=== PATIENT | male | born 1950 | race Caucasian/White ===

== ENCOUNTER 2019-08-18 09:45 | Inpatient (IN) | payer MEDICARE, MEDICAID ==
[~2019-08-18] VITALS: Ht 180.3 cm; Wt 105.1 kg
[2019-08-18] MEDS ORDERED: LACTULOSE SYRUP 10GM/15ML (ENULOSE) 30ML UDC PO PRN (10:00)
[2019-08-18] MEDS ORDERED: ACETAMINOPHEN 500 MG TAB (TYLENOL) PO PRN (10:00)
[2019-08-18] MEDS ORDERED: diphenhydrAMINE 25 MG TAB (BENADRYL) PO PRN (10:00)
[2019-08-18] MEDS ORDERED: LOPERAMIDE 2 MG (IMODIUM) TABLET PO PRN (10:00)
[2019-08-18] MEDS ORDERED: guaiFENesin/CODEINE (ROBITUSSIN AC) 10ML UDC PO PRN (10:00)
[2019-08-18] MEDS ORDERED: ONDANSETRON 4 MG (ZOFRAN) ORAL DISSOLVE TAB PO PRN ×2 (10:00→17:15)
[2019-08-18] MEDS ORDERED: ALPRAZolam 0.25 MG (XANAX) TAB PO PRN (10:00)
[2019-08-18] MEDS ORDERED: DOCUSATE SODIUM 100 MG (COLACE) CAP PO PRN (10:00)
[2019-08-18] MEDS ORDERED: FLEET ENEMA ADULT 1 EA BTL PR PRN (10:00)
[2019-08-18] MEDS ORDERED: BISACODYL 10 MG SUPP (DULCOLAX) PR PRN (10:00)
[2019-08-18] MEDS ORDERED: ONDA4TAB11 PO (13:31)
[2019-08-18] MEDS ORDERED: HYDR-4227 PO (13:31)
[2019-08-18] MEDS ORDERED: FERR-84 PO (13:31)
[2019-08-18 13:41] VITALS: BP 137/87
[2019-08-18] MEDS ORDERED: POTA10TA6 PO (13:42)
[2019-08-18] MEDS ORDERED: ATOR80TA76 PO (13:42)
[2019-08-18] MEDS ORDERED: CHLO25TA22 PO (13:42)
[2019-08-18] MEDS ORDERED: FURO40TA4 PO (13:42)
[2019-08-18] MEDS ORDERED: DIGO250T PO (13:42)
[2019-08-18] MEDS ORDERED: SPIR25TA5 PO (13:42)
[2019-08-18] MEDS ORDERED: EMPA25TA PO (13:42)
[2019-08-18] MEDS ORDERED: NABU500T PO (13:42)
[2019-08-18] MEDS ORDERED: CITA40TA11 PO (13:42)
[2019-08-18] MEDS ORDERED: FINA5TAB6 PO (13:42)
[2019-08-18] MEDS ORDERED: GABA-490 PO (13:42)
[2019-08-18] MEDS ORDERED: DILT360C30 PO (13:42)
[2019-08-18] MEDS ORDERED: INSU100V6 SC (13:42)
[2019-08-18] MEDS ORDERED: CYAN-41 PO (13:42)
[2019-08-18] MEDS ORDERED: DOCU-143 PO (13:42)
[2019-08-18] MEDS ORDERED: INSU100I14 SC (13:42)
--- NOTE | 2019-08-18 14:25 | NUR ---
Jacinto Dejesus admitted to room 232-1, with an admitting diagnosis of , on 08/18/19 from [facility] via wheelchair, accompanied by Family.JACINTO DEJESUS introduced to surroundings, call light, bed controls, phone, TV, temperature control, lights, meal times, smoking policy, visitor policy, side rail policy, bathrooms and showers. Patient Rights given to patient in the handbook.JACINTO DEJESUS verbalizes understanding that [facility] is not responsible for the loss or damage to any personal effects or valuables that are kept in the patients possession during their hospitalization. The following Patient Care Plans were discussed with the patient and family: Discharge Planning, Total Hip Replacement, Potential for Injury. JACINTO DEJESUS verbalizes understanding of Interdisciplinary Patient Education.
--- NOTE | 2019-08-18 14:25 | Physical Therapy Evaluation ---
PT Evaluation-General Medical Diagnosis Admission Date Aug 18, 2019 at 12:45 Medical Diagnosis: OA R hip Onset Date: Aug 18, 2019 Therapy Diagnosis Therapy Diagnosis: abnormal gait Precautions Precautions/Isolations: Standard Precautions Weight Bear Status Right Lower Extremity: Right Weight Bearing/Tolerated Left Lower Extremity: Left Full Weight Bearing Referral Physician: Ashley Reason for Referral: Evaluation/Treatment Medical History Pertinent Medical History: Arthritis, CVA, DM, HTN, MA Additional Medical History anxiety, depression Current History Pt admitted to this facility post acute stay due to elective right THR. Anterior approach. Reviewed History: Yes Social History Home: Single Level Current Living Status: Alone Entry Into Home: Ramp Prior Prior Level of Function SCALE: Activities may be completed with or without assistive devices. 2-Rmnsabqdoy-qxaopvp completes the activity by him/herself with no assistance from a helper. 5-Set-up or Clean-up Assistance-helper sets up or cleans up; patient completes activity. [place] assists only prior to or following the activity. 4-Supervision or Touching Assistance-helper provides verbal cues and/or touching/steadying and/or contact guard assistance as patient completes activity. Assistance may be provided throughout the activity or intermittently. 3-Partial/Moderate Assistance-helper does LESS THAN HALF the effort. [place] lifts, holds or supports trunk or limbs, but provides less than half the effort. 2-Substantial/Maximal Assistance-helper does MORE THAN HALF the effort. [place] lifts or holds trunk or limbs and provides more than half the effort. 4-Vhkcrayzt-zrqlxl does ALL the effort. Patient does none of the effort to complete the activity. Or, the assistance of 2 or more helpers is required for the patient to complete the activity. If activity was not attempted, code reason: 7-Patient Refused. 9-Not Applicable-not attempted and the patient did not perform the activity before the current illness, exacerbation or injury. 10-Not Attempted due to Environmental Limitations-(lack of equipment, weather restraints, etc.). 88-Not Attempted due to Medical Conditions or Safety Concerns. Bed Mobility: 6 Transfers (B,C,W/C): 6 Gait: 0 (pt reports he primarily used his power chair; reports he walked approx 20 ft at most with a FWW.) Stairs: 9 Wheelchair Mobility: 6 (power chair) Indoor Mobility (Ambulation): Not [place] Stairs: Not [place] Prior Devices Use: Motorized wheelchair, Walker Pt lives alone and is able to manage from a power chair level; he reports he uses AD for transfer and bed mobility. Limited walking noted, reports he walks 20 ft at most. Reports he has primarily used a power chair for the last 4 years. PT Evaluation-Current Subjective Pt agreeable to PT evaluation. Pt/Family Goals His goal is to improve strength for gait and transfers. Objective Patient Orientation: Person, Place, Time, Situation ROM/Strength ROM Lower Extremities WFL Strength Lower Extremities Left LE strength is grossly 4/5; right LE strength is grossly 2+/5 Integumentary/Posture Integumentary refer to nursing notes for full assessment Bowel Incontinence: No Bladder Incontinence: Yes Posture rounded shoulders; difficulty coming to a full upright stance Neuromuscular (Tone, Coordination, Reflexes) intact and functional Sensory Vision: Functional Hearing: Functional Hand Dominance: Right Sensation Right Lower Extremit: Intact Sensation Left Lower Extremity: Intact Transfers Roll Left to Right (QC): 3 Sit to Lying (QC): 3 (assist with his legs) Lying to Sitting/Side of Bed(Q: 3 Sit to Stand (QC): 2 (max assist to come to a stand) Chair/Bth-bq-Ulbht Xfer(QC): 2 (max assist for SPT (dance style); with grab bars, is able to transfer with mod assist. ) Car Transfer (QC): 2 (max assist to complete. ) Gait Does the Patient Walk?: No and Walking Goal IS indicated Mode of Locomotion: Both Anticipated Mode of Locomotion: Both Walk 10 feet (QC): 88 Walk 50 ft with 2 Turns(QC): 88 Walk 150 ft (QC): 88 Walking 10ft/uneven surface-QC: 88 Gait Assistive Device: FWW Comments/Gait Description PT unable to effectively take steps this date; performed SPT only. Wheelchair Training Does the Pt Use a Wheelchair?: Yes Wheel 50 ft with 2 turns (QC): 6 Wheel 150 ft (QC): 6 Type of Wheelchair: Motorized Stairs 1 Step (curb) (QC): 88 4 Steps (QC): 88 12 Steps (QC): 88 Balance Sitting Static: Fair Sitting Dynamic: Fair Standing Static: Fair Standing Dynamic: Fair Picking up an Object (QC): 88 Treatment PT eval compelete Assessment/Needs Pt presents post elective right THR. He was primarily used a power chair and PLOF (for the past 4 years); he will benefit from functional transfer and bed mobility training as well as gait short distances to improve functional mobility and self care at home. Pt does have noted right LE weakness as well as balance deficits that impair functional mobiltiy and safety. He will benefit from skilled PT intervention to address deficits to allow him to return home. Rehab Potential: Guarded PT Short Term Goals Short Term Goals Time Frame: Sep 01, 2019 Roll Left & Right: 4 Sit to lyin Lying to sitting on side of be: 4 Sit to stand: 3 Walk 10 feet: 3 PT [facility] Goals [facility] Goals PT Regulatory Affairs Analyst Goals Time Frame: Sep 15, 2019 Roll Left & Right (QC): 6 Sit to Lying (QC): 6 Lying-Sitting on Side/Bed(QC): 6 Sit to Stand (QC): 6 Chair/Jyu-sk-Ukgnc Xfer(QC): 6 Toilet Transfer (QC): 6 Car Transfer (QC): 4 Does the Patient Walk: No and Walking Goal IS indicated Walk 10 feet (QC): 5 Walk 50ft with 2 Turns (QC): 9 Walk 150 ft (QC): 9 Walking 10ft on Uneven Surface: 9 1 Step (curb) (QC): 9 4 Steps (QC): 9 12 Steps (QC): 9 Picking up an Object (QC): 9 Does the Pt use WC or Scooter?: Yes Wheel 50 feet with 2 turns (QC: 6 Type: Motorized Wheel 150 feet: 6 Type: Motorized PT Plan Problem List Problem List: Activity Tolerance, Functional Strength, Safety, Balance, Gait, Transfer, Bed Mobility Treatment/Plan Treatment Plan: Continue Plan of Care Treatment Plan: Bed Mobility, Education, Functional Activity Yifan, Functional Strength, Group Therapy, Gait, Safety, Therapeutic Exercise, Transfers Treatment Duration: Sep 15, 2019 Frequency: At least 5 of 7 days/Wk (IRF) Estimated Hrs Per Day: 1.5 hours per day Patient and/or Family Agrees t: Yes Safety Risks/Education Patient Education: Transfer Techniques, Safety Issues Teaching Recipient: Patient Teaching Methods: Demonstration, Discussion Response to Teaching: Reinforcement Needed Discharge Recommendations Therapy Discharge Recommendati: Post Acute PT Time/GCodes Time In: 1230 Time Out: 1245 Total Billed Treatment Time: 15 Total Billed Treatment visit EVM 15 ELEAZAR NAGEL PT Aug 18, 2019 14:25 POS
--- NOTE | 2019-08-18 14:27 | Physical Therapy Daily Note ---
PT Daily Note-Current Subjective Pt. in bed with daughter and son in law and OT present. Pt. somewhat resistive to therapies and needs some encouragement as well as education and explanation of what ARU expectations are. Pt. spoke at length about his history and health issues. Pt. states he has used a scooter/power chair for the most part for the past 4 years. Pt. states he cannot LAQ right leg in sitting. Pt. requested a fan for sleeping and breathing as her had previously used a CPAP but has stopped using it since he lost 100lbs. Pt. comments several times that he has pain in R thigh and groin at 8/10 when he attempts movement and exercise Pain Numeric Pain Scale: 8 Location: Right Location Body Site: Thigh Pain Description: Stabbing Mental Status Patient Orientation: Normal For Age Transfers SCALE: Activities may be completed with or without assistive devices. 7-Ovzcqgrjxs-aasirkz completes the activity by him/herself with no assistance from a helper. 5-Set-up or Clean-up Assistance-helper sets up or cleans up; patient completes activity. [place] assists only prior to or following the activity. 4-Supervision or Touching Assistance-helper provides verbal cues and/or touching/steadying and/or contact guard assistance as patient completes activity. Assistance may be provided throughout the activity or intermittently. 3-Partial/Moderate Assistance-helper does LESS THAN HALF the effort. [place] lifts, holds or supports trunk or limbs, but provides less than half the effort. 2-Substantial/Maximal Assistance-helper does MORE THAN HALF the effort. [place] lifts or holds trunk or limbs and provides more than half the effort. 2-Lnjlrrdxc-aghnww does ALL the effort. Patient does none of the effort to complete the activity. Or, the assistance of 2 or more helpers is required for the patient to complete the activity. If activity was not attempted, code reason: 7-Patient Refused. 9-Not Applicable-not attempted and the patient did not perform the activity before the current illness, exacerbation or injury. 10-Not Attempted due to Environmental Limitations-(lack of equipment, weather restraints, etc.). 88-Not Attempted due to Medical Conditions or Safety Concerns. Roll Left & Right (QC): 3 Sit to Lying (QC): 3 Sit to Stand (QC): 4 Chair/Wyj-ve-Qlodx Xfer(QC): 3 pt. reached out for hand to be pulled up out of bed from supine. sit to stand pt. required min assist as well as detailed education to use UEs as pt. tries to pull on FWW and is confounded by it tipping and not being stable. Gait Training SPT bed to recliner, limited stance and gait as pts BP made considerable drop sup to sit and then sit to stand Exercises Supine Ex: Ankle pumps, Quad Set, Glut sets, Heel Slides (ssisted right), Straight leg raise (left indep), Hip abd/add (ssisted right) Supine Reps: 15 Seated Therapy Exercises: Ankle pumps, Sit to stand, Long arc quads Seated Reps: 20 (assisted right) Treatments pt. educated regarding ARU expectations and practices, pt. was co Rxd with OT secondary to BP issues and level of debility. Pt. was distributed a cushion for recliner and TRFd EOB to recliner and educated in use and positioning in recliner Assessment Current Status: Good Progress pt. c/o dizziness and following BPs were acquired sitting: BP 106/66, standing BP 84/49, communicated BP findings with nurse . PT Professional Sports Scout Goals Professional Sports Scout Goals PT Correction Goals Time Frame: Sep 15, 2019 Roll Left & Right (QC): 6 Sit to Lying (QC): 6 Lying-Sitting on Side/Bed(QC): 6 Sit to Stand (QC): 6 Chair/Xfk-xs-Yfwfj Xfer(QC): 6 Toilet Transfer (QC): 6 Car Transfer (QC): 4 Does the Patient Walk: No and Walking Goal IS indicated Walk 10 feet (QC): 5 Walk 50ft with 2 Turns (QC): 9 Walk 150 ft (QC): 9 Walking 10ft on Uneven Surface: 9 1 Step (curb) (QC): 9 4 Steps (QC): 9 12 Steps (QC): 9 Picking up an Object (QC): 9 Does the Pt use WC or Scooter?: Yes Wheel 50 feet with 2 turns (QC: 6 Type: Motorized Wheel 150 feet: 6 Type: Motorized PT Plan Treatment/Plan Treatment Plan: Continue Plan of Care Treatment Duration: Sep 15, 2019 Frequency: At least 5 of 7 days/Wk (IRF) Estimated Hrs Per Day: 1.5 hours per day Patient and/or Family Agrees t: Yes Safety Risks/Education Patient Education: Transfer Techniques, Correct Positioning, Disease Process, Safety Issues Teaching Recipient: Patient Teaching Methods: Demonstration, Discussion Response to Teaching: Verbalize Understanding, Return Demonstration, Reinforcement Needed Time/GCodes Time In: 1300 Time Out: 1415 Total Billed Treatment Time: 75 Total Billed Treatment 1,EX30m,FA45m CARLOS PERALTA LEARNING AND DEVELOPMENT ANALYST Aug 18, 2019 14:27 POS
--- NOTE | 2019-08-18 14:31 | Occupational Therapy Eval ---
OT Evaluation-General/PLF Medical Diagnosis Admission Date Aug 18, 2019 at 12:45 Medical Diagnosis: s/p R FILIPE Onset Date: Aug 16, 2019 Therapy Diagnosis Therapy Diagnosis: impaired ADLs and functional mobility Precautions Precautions/Isolations: Standard Precautions Comments Anterior hip precautions Referral Physician: Ashley Otero Reason: Activity Tolerance, Self Care, Evaluation/Treatment, Strengthening/ROM Medical History Pertinent Medical History: Arthritis, DM, HTN Additional Medical History Per chart review, pt has a history of anxiety, claustrophobia, back problems, hypercholesterolemia, heart attack, heart disease, stroke. Current History Pt has had pain in his hip over the last 4 years, causing him to be dependent on a power wheelchair for mobility. Pt has tried conservative tx without success, electing to undergo R FILIPE on Friday08/16/19. Pt was at [facility], transferring to [facility] inpatient rehab unit on 08/18/19. Reviewed History: Yes Social History Home: Single Level Current Living Status: Alone Entry Into Home: Ramp ADL-Prior Level of Function SCALE: Activities may be completed with or without assistive devices. 6-Vtsyifvufc-ehfozht completes the activity by him/herself with no assistance from a helper. 5-Set-up or Clean-up Assistance-helper sets up or cleans up; patient completes activity. [place] assists only prior to or following the activity. 4-Supervision or Touching Assistance-helper provides verbal cues and/or touching/steadying and/or contact guard assistance as patient completes activity. Assistance may be provided throughout the activity or intermittently. 3-Partial/Moderate Assistance-helper does LESS THAN HALF the effort. [place] lifts, holds or supports trunk or limbs, but provides less than half the effort. 2-Substantial/Maximal Assistance-helper does MORE THAN HALF the effort. [place] lifts or holds trunk or limbs and provides more than half the effort. 7-Lsnffqxpu-cclvar does ALL the effort. Patient does none of the effort to complete the activity. Or, the assistance of 2 or more helpers is required for the patient to complete the activity. If activity was not attempted, code reason: 7-Patient Refused. 9-Not Applicable-not attempted and the patient did not perform the activity before the current illness, exacerbation or injury. 10-Not Attempted due to Environmental Limitations-(lack of equipment, weather restraints, etc.). 88-Not Attempted due to Medical Conditions or Safety Concerns. ADL PLOF Comments Pt reports he was independent with dressing prior to surgery. He reports being able to complete all parts of bathing, except his feet. He has help a couple hours each day of the week from around 8-10AM, and a nurse x1 a week. He has assistance with the cleaning and the laundry. He reports the [place] with providing his meals. To get out of bed pt requires a cane to assist him in pushing his upper body up out of the bed. He has been incontinent for the past year. Self Care: Needed Some Help Functional Cognition: Independent DME/Equipment: Bath Chair, Tub/Shower DME/Equipment Comments Pt has used a power wheelchair for mobility for the past 4 years, he said he can use a walker to walk about 20-[address] Self: Yes (truck with lift attached for powerchair) OT Current Status Subjective Pt agreeable to OT evaluation and then OT/PT co-treat. Pt's daughter and son-in-law present at beginning of session, assisted in providing information about PLOF and home set up. Pain Numeric Pain Scale: 10-Worst Possible Pain Location: Right Location Body Site: Hip Mental Status/Objective Patient Orientation: Person, Place, Time, Situation Current Glasses/Contacts: Yes Hearing Aids: No Dentures/Partials: Yes Hand Dominance: Right Upper Extremity ROM WFL Upper Extremity Coordination WFL Upper Extremity Sensation WFL Upper Extremity Strength grossly 4/5 MMT ADL-Treatment Eating (QC): 6 Oral Hygiene (QC): 3 (Pt sat EOB during task, OT set up at tray table. Pt able to open denture tablet, placing tablet and dentures into container. OT then assisted with rinsing dentrues, pt scrubbed with toothpaste and tooth brush (required max encouragement), then OT rinsed dentures again. Pt then able to put dentures back into his mouth.) Shower/Bathe Self (QC): 3 (Pt able to wash BUE, chest, abdomen, periarea, and BLE thighs. He required assistance with BLE lower legs/feet, and buttocks during stand. ) Upper Body Dressing (QC): 5 (set up) Lower Body Dressing (QC): 1 (Pt required total assistance for doffing brief. Assistance for threading BLE into brief, pt then able to manage up over hips during stand at FWW.) On/Off Footwear (QC): 1 (Pt required total assist with task) Toileting Hygiene (QC): 2 (Pt required assistance with all parts of clothing management, pt able to complete toilet hygiene.) Toilet Transfer (QC): 2 (SPT with grab bars) Other Treatments Pt provided information about PLOF and home set up for OT evaluation. OT/PT cotreat secondary to pt's decline in overall function requiring the skill of 2 disciplines that a rehab department manager could not perform. OT focused on UE placement, ADLs, sequencing, and cueing while PT focused on overall gross movement and LE placement. Pt completed toileting, then transferred to his bed where his vitals were taken. Pt then sat EOB for sponge bath, dressing, and oral hygiene. During stand, pt reported he was light headed and dizzy, BP was taken. Pt's blood pressure was low and nursing notified. Pt then educated on ARU expectations and the purpose of OT. Pt's lunch arrived, he then ate. Pt then transferred from EOB to recliner. Post OT/PT co-treat, pt was sitting upright in recliner, call light in reach and all needs met. Education OT Patient Education: Correct positioning, Energy conservation, Modified ADL techniques, Progress toward Goal/Update tx plan, Purpose of tx/functional activ ities, Transfer techniques Teaching Recipient: Patient Teaching Methods: Discussion Response to Teaching: Verbalize Understanding OT Short Term Goals Short Term Goals Time Frame: Aug 27, 2019 OT Longterm Goals Longterm Goals Time Frame: Sep 03, 2019 Eating (QC): 6 Oral Hygiene (QC): 6 Toileting Hygiene (QC): 6 Shower/Bathe Self (QC): 6 Upper Body Dressing (QC): 6 Lower Body Dressing (QC): 6 On/Off Footwear (QC): 6 Additional Goals: 1-Demonstrate ADL Tasks, 2-Verbalize Understanding, 3- ImproveStrength/Yifan 1=Demonstrate adherence to instructed precautions during ADL tasks. 2=Patient will verbalize/demonstrate understanding of assistive devices/modifications for ADL. 3=Patient will improve strength/tolerance for activity to enable patient to perform ADL's. OT Education/Plan Problem List/Assessment Assessment: Decreased Activ Tolerance, Decreased UE Strength, Impaired Funct Balance, Impaired I ADL's, Impaired Self-Care Skills Discharge Recommendations Plan/Recommendations: Continue POC Equpiment Recommendations-D/C: Hip Kit Treatment Plan/Plan of Care Treatment,Training & Education: Yes Patient would benefit from OT for education, treatment and training to promote independence in ADL's, mobility, safety and/or upper extremity function for ADL's. Plan of Care: ADL Retraining, Caregiver Training, Functional Mobility, Group Exercise/Act as Ind, UE Funct Exercise/Act Treatment Duration: Sep 03, 2019 Frequency: At least 5 of 7 days/Wk (IRF) Estimated Hrs Per Day: 1.5 hours per day Agreement: Yes Rehab Potential: Good Time/GCodes Start Time: 12:45 Stop Time: 14:15 Total Time Billed (hr/min): 90 Billed Treatment Time [id number] OT evaluation [id number] OT/PT cotreat 1, EVM (15mins), ADL 5 INDIGO PERDOMO OT Aug 18, 2019 14:31 POS
--- NOTE | 2019-08-18 15:26 | ST Cognitive Linguistic Eval ---
Speech Evaluation-General Medical Diagnosis s/p R FILIPE Onset Date: Aug 16, 2019 Therapy Diagnosis Therapy Diagnosis: Cognitive-communication Referral Referring Physician: Dr. Ramirez Medical History Pertinent Medical History: Arthritis, DM, HTN Reviewed History: Yes Social History Current Living Status: Alone Speech PLF-Current Status Prior Level of Function Patient lived alone in his own home where he was independent for his daily needs. Subjective Patient was cooperative with the cognitive assessment. Language Eval: Auditory Comprehends Simple Yes/No Ques: Functional Indent/Objects Multiple Higgins: Functional Ident/Pics in Multiple Higgins: Functional Follows 1-Step Commands: Functional Follows Complex Directions: Functional Follows General Conversations: Functional Language Eval: Verbal Language Completes Spontaneous Greeting: Functional Produces Auto, Serial Info: Functional Imitates Simple Words/Phrases: Functional Word Finding: Functional Requests Basic Needs: Functional States Basic Personal Info: Functional Expresses Complex Ideas: Functional Objective Cognitive Domain Attention: WNL Memory: Mild Problem Solving: Functional Executive Functions: WNL Visuospatial Skills: WNL Composite Severity Rating: WNL Clock Drawing Severity Rating: WNL Objective Formal/Standardized Tests [facility] Status ([facility]) Results 28/30, within normal range of function Oral Motor/Speech Production Within Normal Limits Impression The patient is a 68 year old male who was admitted to the ARU s/p hip replacement. Patient was given the [facility] with a score of 28/30 obtained. The patient does not require skilled ST services at this time. Speech Patient Assess Expression of Ideas/Wants: Expression (4) Understanding Verbal Content: Understands (4) Brief Interview-Mental Status: Yes Repetition of Three Words: Three (3) Temporal Orientation: Year: Correct (3) Temporal Orientation: Month: Accurate within 5 days(2) Temporal Orientation: Day: Correct (1) Recall : Wear to say "Sock": Yes, no cue required (2) Recall : Color: Yes, no cue required (2) Recall : Bed: Yes, no cue required (2) Memory/Recall Ability: Current season, That he or she is in a hsp/hsp unit Speech-Plan Patient/Family Goals Patient/Family Goals: Patient plans on returning home post rehab. Treatment Plan Speech Therapy Treatment Plan: Discontinue ST Patient does not qualify for skilled ST services at this time. Treatment Duration: Aug 18, 2019 Frequency: 1 time per week Estimated Hrs Per Day: .25 hour per day Rehab Potential: Good Barriers to Learning: None identified Pt/Family Agrees to Plan: Yes Safety Risks/Education Teaching Recipient: Patient Teaching Methods: Discussion Response to Teaching: Verbalize Understanding Education Topics Provided: Safety within his room and communication of wants/needs Time Speech Therapy Time In: 14:45 Speech Therapy Time Out: 15:00 Total Billed Time: 15 Billed Treatment Time 1, SPSNDCOMP JOANA Castellanos Aug 18, 2019 15:26 POS
[2019-08-18] MEDS ORDERED: HYDR-700 PO (15:51)
[2019-08-18] MEDS ORDERED: METF-399 PO (15:51)
[2019-08-18] MEDS ORDERED: APIX5TAB PO (15:51)
[2019-08-18] MEDS ORDERED: GABA-488 PO (15:51)
[2019-08-18] MEDS ORDERED: METO100T12 PO (15:51)
--- NOTE | 2019-08-18 16:22 | NUR ---
PATIENT ARRIVED HERE IN REHAB WITH A DISCHARGE MEDICATION LIST FROM [facility]. THAT LIST DID NOT MATCH WHAT WAS SHOWING ON THE EXT MED HX SO I CALLED AND HAD [facility] FAX OVER A LIST OF MEDICATIONS THAT HAVE BEEN FILLED RECENTLY. 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 I CALLED [facility] IN [facility] AT [phone] AND THEY FAXED OVER A LIST OF MEDICATIONS. THAT LIST DOES NOT APPEAR TO MATCH WHAT THE PHARMACY FILLED EITHER AND HISTORICALLY I FIND HOME HEALTH DOES NOT UPDATE THEIR PAPERWORK AFTER THE PATIENT IS PUT ON SERVICE, THEY OFTEN JUST FILL THE PILL WALKING DRAGLINE OPERATOR USING THE BOTTLES THE PATIENT HAS IN THE HOME. I HAVE UPDATED THE MED REC WITH THE LIST FROM [facility]. [facility] FILLED: 08-16-19 JARDIANCE 25MG DAILY #30 07-09-19 ELIQUIS 5MG BID #60 ([facility] REPORTED 2.5MG DAILY) 07-09-19 CITALOPRAM 40MG DAILY #30 07-09-19 DIGOXIN 0.25MG DAILY #30 07-09-19 DILTIAZEM ER 360MG DAILY #30 07-09-19 FINASTERIDE 5MG DAILY #30 07-09-19 GABAPENTIN 300MG 1AM 1 NOON #60 07-09-19 GABAPENTIN 400MG HS #30 07-09-19 METOPROLOL TARTRATE 100MG BID #60 ([facility] REPORTED 50MG BID) 07-09-19 NABUMETONE 500MG BID #60 07-09-19 SPIRONOLACTONE 25MG 2 DAILY #60 06-30-19 FUROSEMIDE 40MG DAILY #60 06-30-19 METFORMIN 1000MG BID #120 ([facility] REPORTED 500MG BID) 06-09-19 ATORVASTATIN 80MG 1/2 TAB DAILY #30 ([facility] REPORTED 80MG HS) 06-08-19 POTASSIUM 10MEQ BID #120 06-02-19 CHLORTHALIDONE 25MG 1/2 TAB DAILY #30 06-02-19 COLACE 100MG BID #60 (STATES HE TAKES 1 DAILY) 03-02-19 NOVOLOG FLEXPEN 20 UNITS TID (STATES HE USES 18 UNITS TIDAC) ([facility] REPORTED 15 AC) 01-19-19 HYDROXYZINE HCL 25MG QID PRN #60 (ONLY USES PRN) ([facility] REPORTED TID) 10-29-18 LANTUS 75 UNITS BID (STATES HE USES 70 UNITS BID) ([facility] REPORTED 60 BID) OTC MED REPORTED BY [facility]: VITAMIN B12 1000MCG DAILY [facility] ALSO REPORTED TO CONTINUE FLEXERIL 10MG TID HOWEVER THIS HAS NOT BEEN FILLED RECENTLY. PATIENT STATES HE HAS TAKEN IT IN THE PAST BUT NOT RECENTLY HOWEVER WHEN THEY GAVE IT TO HIM AT [facility] HE FELT IT WORKED REALLY WELL TO HELP HIM EMPTY HIS BLADDER SO THAT HE DID NOT HAVE ACCIDENTS. I DID NOT INCLUDE IT ON THE MED REC AT THIS TIME HE HAS NOT BEEN TAKING IT AT HOME RECENTLY. THE FOLLOWING CHANGES WERE MADE WHEN THE PATIENT DISCHARGED FROM [facility]: START TAKING: IRON 325MG BID ZOFRAN ODT 4MG Q4H PRN CHANGE: NORCO 7.5-325MG PO (THERE WAS NO FREQUENCY ON THIS PAIN MEDICATION, THE PRINTED SCRIPT ALSO SIMPLY STATES TAKE BY MOUTH. THE PATIENT HAD TOLD ME IN MY FIRST INTERVIEW WITH HIM THAT HE FILLS HIS HYDROCODONE AT [facility] IN [place]. I CALLED THEM AND THEY HAVE NOT FILLED IT SINCE 07-01-18 #120 7.5-325MG QID PRN. THEY ALSO DID A CENTRAL SEARCH AND DO NOW SHOW ANYMORE RECENT FILL HISTORY, NOTHING WAS RETURNED IN [employer] BUT [place] IS NOT INCLUDED IN THAT SEARCH. WHEN I ASKED HIM ABOUT THIS AGAIN HE STATES HE HAS NOT FILLED IT IN A LONG TIME BUT HE DOES USE IT AND DOES NEED IT.) I HAVE LEFT THE FREQUENCY BLANK FOR THE DRJai TO DECIDE HOW MUCH HE SHOULD BE TAKING NOW. Addendum: 08/19/19 at 1432 by WILDER REN [facility] REMOVED THE NEW MEDICATIONS ZOFRAN AND IRON FROM THE MED REC AT THIS TIME. I ALSO REMOVED THE HYDROCODONE SINCE THE PATIENT HAD NOT FILLED IT SINCE 2017 PRIOR TO ADMISSION AND THE ORDER FROM [facility] DID NOT HAVE DIRECTIONS.
--- NOTE | 2019-08-18 17:08 | PM&R Post Admission Assessment ---
PM&R HP Date of Visit: Aug 18, 2019 Time of Visit: 17:10 History of Present Illness CC: Right hip replacement uncomplicated in need of intensive rehab due to living alone and required wheelchair bound status prior to surgery HPI: This is a 68yoWM clinic pt of [facility] and [facility] who presented to inpatient rehab after an uncomplicated right hip replacement. Apparently he had been mostly wheelchair bound due to the severe debility and does have an electric wheelchair. He had no complications during or post-op and I had been consulted and watching him over at [facility]. He reports no longer using CPAP since losing weight and he does have a history of AF with pacemaker and I did confer with who will see him in consultation. He has no issues of bladder but he was incontinence of feces the night right after surgery due to the spinal block. He has had some issues with low BP since being at [facility] but that is improving. His prior level of functioning was living alone and help transferring with a walker from the electric wheelchair so he will be in need of intensive rehab in order to sustain recovery and return home to live independently. 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) Alcohol Use: Past History Alcohol Beverage of Choice: Beer Recreational Drug Use: No Smoking Status: Former Smoker Type Used: Cigarettes Physical Abuse Screen: No Sexual Abuse: No Recent Foreign Travel: No Contact w/other who traveled: No Recent Hopitalizations: Yes Recent Infectious Disease Expo: No Immunizations Up To Date Pediatric: Yes Seasonal Allergies Seasonal Allergies: Yes Past Medical History Surgeries: Appendectomy, Gallbladder, Orthopedic Pacemaker Respiratory: COPD, Sleep Apnea Currently Using CPAP: Yes Currently Using BIPAP: No Cardiac: Atrial Fibrillation, Cardiomyopathy, Chronic Edema/Swelling, Coronary Artery Disease, High Cholesterol, Hypertension, Peripheral Vascular Neurological: Neuropathy Sexually Transmitted Disease: No HIV/AIDS: No Genitourinary: Benign Prostatic Hyperpl Gastrointestinal: Chronic Constipation Musculoskeletal: Arthritis Endocrine: Diabetes, Non-Insulin dep Are Your Blood Sugars Over 250: Yes Psychosocial: Depression History of Blood Disorders: No Adverse Reaction to Blood Swan: No Family History Alcoholism 19 FATHER 19 MOTHER G8 BROTHER Arthritis 19 FATHER 19 MOTHER G8 BROTHER Completed stroke 19 MOTHER Hypertension G8 BROTHER Tuberculosis Prior Level of Function Bed Mobility: 6 Transfers: 6 Gait: 0 (pt reports he primarily used his power chair; reports he walked approx 20 ft at most with a FWW.) Stairs: 9 Wheelchair Mobility: 6 (power chair) Indoor Mobility (Ambulation): Not Applicalbe Stairs: Not Applicalbe Prior Devices Use: Motorized wheelchair, Walker Self Care: Needed Some Help Functional Cognition: Independent Drive Self: Yes (truck with lift attached for powerchair) Current Level of Fuctioning Roll Left to Right: 3 Sit to Lyin Lying to Sitting/Side of Bed: 3 Sit to Stand: 4 Chair/Aew-et-Tvtqa Xfer: 3 Car Transfer: 2 (max assist to complete. ) Does the Patient Walk: No and Walking Goal IS indicated Mode of Locomotion: Both Anticipated Mode of Locomotion: Both Walk 10 feet: 88 Walk 50 ft with 2 Turns: 88 Walk 150 ft: 88 Walking 10ft on uneven surface: 88 Gait Assistive Device: FWW Does the Pt Use a Wheelchair: Yes Wheel 50 ft with 2 turns: 6 Wheel 150 ft: 6 Type of Wheelchair: Motorized 1 Step (curb): 88 4 Steps: 88 12 Steps: 88 Picking up an Object: 88 Eatin Oral Hygiene: 3 (Pt sat EOB during task, OT set up at tray table. Pt able to open denture tablet, placing tablet and dentures into container. OT then assisted with rinsing dentrues, pt scrubbed with toothpaste and tooth brush (required max encouragement), then OT rinsed dentures again. Pt then able to put dentures back into his mouth.) Shower/Bathe Self: 3 (Pt able to wash BUE, chest, abdomen, periarea, and BLE thighs. He required assistance with BLE lower legs/feet, and buttocks during stand. ) Upper Body Dressin (set up) Lower Body Dressin (Pt required total assistance for doffing brief. Assistance for threading BLE into brief, pt then able to manage up over hips during stand at FWW.) On/Off Footwear: 1 (Pt required total assist with task) Toileting Hygiene: 2 (Pt required assistance with all parts of clothing management, pt able to complete toilet hygiene.) Toilet Transfer: 2 (SPT with grab bars) PM&R Allergy/Meds/Data Review Allergies Coded Allergies: Iodine and Iodide Containing Produc (Verified Allergy, Unknown, 08/18/19) Penicillins (Verified Allergy, Unknown, 08/18/19) nifedipine (Verified Allergy, Unknown, 08/18/19) Home Medications Scheduled Apixaban (Eliquis), 5 MG PO BID, (Reported) Atorvastatin Calcium (Atorvastatin Calcium), 40 MG PO HS, (Reported) Chlorthalidone (Chlorthalidone), 12.5 MG PO DAILY, (Reported) Citalopram Hydrobromide (Citalopram HBr), 40 MG PO DAILY, (Reported) Cyanocobalamin (Vitamin B-12) (Vitamin B-12), 1,000 MCG PO DAILY, (Reported) Digoxin (Digoxin), 250 MCG PO DAILY, (Reported) Diltiazem HCl (Diltiazem ER), 360 MG PO DAILY, (Reported) Docusate Sodium (Colace), 100 MG PO DAILY, (Reported) Empagliflozin (Jardiance), 25 MG PO DAILY, (Reported) Ferrous Sulfate (Iron), 325 MG PO BID, (Reported) Finasteride (Finasteride), 5 MG PO DAILY, (Reported) Furosemide (Furosemide), 40 MG PO DAILY, (Reported) Gabapentin (Gabapentin), 400 MG PO HS, (Reported) Gabapentin (Gabapentin), 300 MG PO 0800,1200, (Reported) Insulin Aspart (Novolog Flexpen), 18 UNITS SC AC, (Reported) Insulin Glargine,Hum.rec.anlog (Lantus), 70 UNITS SC BID, (Reported) Metformin HCl (Metformin HCl), 1,000 MG PO BID, (Reported) Metoprolol Tartrate (Metoprolol Tartrate), 100 MG PO BID, (Reported) Nabumetone (Nabumetone), 500 MG PO BID, (Reported) Potassium Chloride (Klor-Con 10), 10 MEQ PO BID, (Reported) Spironolactone (Spironolactone), 50 MG PO DAILY, (Reported) Scheduled PRN Hydrocodone/Acetaminophen ([place] 7.5-325 Tablet), 1 TAB PO for PAIN-MODERATE (5- 7), (Reported) Hydroxyzine HCl (Hydroxyzine HCl), 25 MG PO QID PRN for ANXIETY, (Reported) Ondansetron (Ondansetron Odt), 4 MG PO Q4H PRN for NAUSEA/VOMITING-1ST LINE, (Reported) Current Medications Current Medications Reviewed Laboratory Data Laboratory Tests 08/18/19 15:29: Glucometer 106 Review of Systems Constitutional: see HPI, weakness EENTM: no symptoms reported Respiratory: no symptoms reported Cardiovascular: no symptoms reported Gastrointestinal: constipation Genitourinary: no symptoms reported Musculoskeletal: back pain, muscle pain Skin: no symptoms reported Psychiatric/Neurological: No Symptoms Reported All Other Systems Reviewed Negative Unless Noted: Yes Physical Exam Physical Exam Vital Signs Vital Signs - First Documented 08/18/19 13:41 Temp 37.0 Pulse 85 Resp 18 B/P (MAP) 137/87 Pulse Ox 97 O2 Delivery Room Air Capillary Refill : Height, Weight, BMI Height: '" Weight: lbs. oz. kg; 31.31 BMI Method: General Appearance: No Apparent Distress, WD/WN, Chronically ill, Obese Eyes: Bilateral Eye Normal Inspection, Bilateral Eye PERRL HEENT: PERRL/EOMI, Normal ENT Inspection, Pharynx Normal Neck: Full Range of Motion, Normal Inspection, Non Tender, Supple, Carotid Bruit Respiratory: Chest Non Tender, Normal Breath Sounds, No Accessory Muscle Use, No Respiratory Distress, Decreased Breath Sounds Cardiovascular: Regular Rate, Rhythm, No Gallop, No JVD, No Murmur, Normal Peripheral Pulses Gastrointestinal: Normal Bowel Sounds, No Organomegaly, No Pulsatile Mass, Non Tender, Soft Back: Normal Inspection, No CVA Tenderness, No Vertebral Tenderness Extremity: Normal Capillary Refill, Normal Inspection, Normal Range of Motion, Non Tender, No Calf Tenderness, Pedal Edema Neurologic/Psychiatric: Alert, Oriented x3, No Motor/Sensory Deficits (decreased in legs), Normal Mood/Affect, board layer II-XII Norm as Tested Skin: Normal Color, Warm/Dry Lymphatic: No Adenopathy PM&R Medical Assessment & Plan REHAB/MEDICAL ASSESSMENT AND PLAN: REHAB IMPAIRMENT GROUP: Debility ETIOLOGIC DIAGNOSIS: Debility The comorbidities that impact the patients function and/or functional outcome by: AF, OAC, Arthritis, Debility REHAB PLAN: The patient is being admitted to our comprehensive inpatient rehabilitation facility and can tolerate the intensity of service consisting of at least: 180 minutes of therapy a day, 5 out of 7 days a week Rehab treatment will consist of: PT and OT will focus on increasing strength in order to dc home alone The patient/family has a good understanding of our discharge process and will benefit from an interdisciplinary inpatient rehabilitation program. The patient has potential to make improvement and is in need of at least two of the following multidisciplinary therapies including but not limited to physical, occupational, speech, and prosthetics and orthotics. Additionally the patient will need services from respiratory, nutritional services, wound care, psychology, etc. (Customize this to each patient). Given the patients complex condition and risk of further medical complications, rehabilitation services cannot be safely or effectively provided at a lower level of care such as a intermediate facility. BARRIERS TO DISCHARGE: Home ESTIMATED LOS: 7 days DISPOSITION: Home RELEVANT CHANGES SINCE PREADMISSION SCREENING: I have compared the patients medical and functional status at the time of the preadmission screening and there are: no changes PROGNOSIS: Good REHABILITATION GOALS: 1. PT/OT will help regain enough function to safely return home All the above goals were reviewed with the patient and he/she is in agreement. By signing this document, I acknowledge that I have personally performed a full physical examination on this patient within 24 hours of admission to this inpatient rehabilitation facility and have determined the patient to be able to tolerate the above course of treatment at an intensive level for a reasonable period of time. I will be completing a detailed individualized Plan of Care for this patient by day #4 of the patients stay based upon the Preadmission Screen, the Post-Admission Evaluation, and the therapy evaluations. Admission Dx/Comorbidities: (1) Debility ICD Codes: R53.81 - Other malaise (2) CAD (coronary artery disease) ICD Codes: I25.10 - Atherosclerotic heart disease of [place] coronary artery without angina pectoris (3) Diabetes mellitus ICD Codes: E11.9 - Type 2 diabetes mellitus without complications (4) Pacemaker ICD Codes: Z95.0 - Presence of cardiac pacemaker (5) Atrial fibrillation ICD Codes: I48.91 - Unspecified atrial fibrillation (6) IBS (irritable bowel syndrome) ICD Codes: K58.9 - Irritable bowel syndrome without diarrhea (7) KRAIG (obstructive sleep apnea) ICD Codes: G47.33 - Obstructive sleep apnea (adult) (pediatric) (8) Hypertension ICD Codes: I10 - Essential (primary) hypertension (9) Hyperlipemia ICD Codes: E78.5 - Hyperlipidemia, unspecified (10) Depression ICD Codes: F32.9 - Major depressive disorder, single episode, unspecified (11) BPH (benign prostatic hyperplasia) ICD Codes: N40.0 - Benign prostatic hyperplasia without lower urinary tract symptoms (12) Status post right hip replacement ICD Codes: Z96.641 - Presence of right artificial hip joint TOLU PENA DO Aug 18, 2019 17:08 POS
[2019-08-18] MEDS ORDERED: NON-FORMULARY MEDICATION 1 EA EA (Hydroxyzine HCl 25 MG) PO PRN (17:15)
[2019-08-18] MEDS ORDERED: hydrOXYzine (VISTARIL/ATARAX) 25 MG capsule/tablet PO PRN (17:30)
[2019-08-18 18:00] VITALS: BP 121/66
[2019-08-18] MEDS: FERROUS SULF 325 MG (IRON) TAB PO SCH (18:20)
[2019-08-18] MEDS: HYDROcodone/APAP 7.5 MG/325 MG (LORTAB, LORCET PLUS) TABLET PO PRN (18:21)
[2019-08-18] MEDS: metFORMIN 500 MG (GLUCOPHAGE) TAB PO SCH (18:21)
[2019-08-18] MEDS: KCL 10 MEQ TAB (MICRO K) PO SCH (18:21)
[2019-08-18 21:00] VITALS: BP 113/71
[2019-08-18] MEDS ORDERED: NON-FORMULARY MEDICATION 1 EA EA (Metformin HCl 1,000 MG) PO SCH (21:00)
[2019-08-18] MEDS ORDERED: INSULIN GLARGINE HUM REC ANLOG 70 UNIT SC SCH (21:00)
[2019-08-18] MEDS ORDERED: NON-FORMULARY MEDICATION 1 EA EA (Metoprolol Tartrate 100 MG) PO SCH (21:00)
[2019-08-18] MEDS ORDERED: DOCUSATE SODIUM 100 MG (COLACE) CAP PO SCH (21:00)
[2019-08-18] MEDS: SENNA W/DOCUSATE (SENOKOT S) TABLET PO SCH (21:11)
[2019-08-18] MEDS: GABAPENTIN 400 MG (NEURONTIN) CAP PO SCH (21:11)
[2019-08-18] MEDS: meTOprolol TARTRATE 50 MG (LOPRESSOR) TAB PO SCH (21:11)
[2019-08-18] MEDS: APIXABAN 5 MG (ELIQUIS) TABLET PO SCH (21:12)
[2019-08-18] MEDS: POLYETHYLENE GLYCOL 17 GM (MIRALAX) PACK PO SCH (22:04)
[2019-08-19] MEDS: HYDROcodone/APAP 7.5 MG/325 MG (LORTAB, LORCET PLUS) TABLET PO PRN ×4 (02:02→20:06)
[2019-08-19] MEDS: FERROUS SULF 325 MG (IRON) TAB PO SCH ×2 (05:56→17:01)
[2019-08-19] MEDS ORDERED: NON-FORMULARY MEDICATION 1 EA EA (Insulin Aspart (Novolog Flexpen) 18 UNITS) SC SCH (06:00)
[2019-08-19 06:17] VITALS: BP 126/74
[2019-08-19] MEDS: KCL 10 MEQ TAB (MICRO K) PO SCH ×2 (06:36→17:01)
[2019-08-19] MEDS: metFORMIN 500 MG (GLUCOPHAGE) TAB PO SCH ×2 (06:36→17:01)
[2019-08-19] MEDS: inSUlin ASPART (NovoLOG) 1 UNIT/0.01 ML (CHARGE PER UNIT) SC SCH ×4 (06:36→21:14)
[2019-08-19] MEDS: CHLORTHALIDONE 25 MG (HYGROTON) TABLET PO SCH (06:39)
[2019-08-19 06:55] LABS: BASOPHILS % (AUTO) 0 % (0-10); EOSINOPHILS % (AUTO) 1 % (0-10); HEMATOCRIT 30 % (40-54); HEMOGLOBIN 10.2 G/DL (13.3-17.7); LYMPHOCYTES # (AUTO) 1.2 X 10^3 (1.0-4.0); LYMPHOCYTES % (AUTO) 14 % (12-44); MEAN CORPUSCULAR HEMOGLOBIN 33 PG (25-34); MEAN CORPUSCULAR HGB CONC 35 G/DL (32-36); MEAN CORPUSCULAR VOLUME 94 FL (80-99); MEAN PLATELET VOLUME 8.9 FL (7.4-10.4); MONOCYTES # (AUTO) 1.1 X 10^3 (0.0-1.0); MONOCYTES % (AUTO) 13 % (0-12); NEUTROPHILS # (AUTO) 6.1 X 10^3 (1.8-7.8); NEUTROPHILS % (AUTO) 72 % (42-75); PLATELET COUNT 227 10^3/uL (130-400); RED CELL DISTRIBUTION WIDTH 12.9 % (10.0-14.5); WHITE BLOOD COUNT 8.4 10^3/uL (4.3-11.0)
[2019-08-19 07:16] LABS: ALANINE AMINOTRANSFERASE 41 U/L (0-55); ALBUMIN 3.2 GM/DL (3.2-4.5); ALKALINE PHOSPHATASE 101 U/L (40-136); BILIRUBIN,TOTAL 0.5 MG/DL (0.1-1.0); BUN/CREATININE RATIO 20; CARBON DIOXIDE 23 MMOL/L (21-32); CHLORIDE 100 MMOL/L (98-107); CREATININE SERUM 0.74 MG/DL (0.60-1.30); GFR ESTIMATED > 60; GLUCOSE 76 MG/DL (70-105); POTASSIUM 3.1 MMOL/L (3.6-5.0); SODIUM 135 MMOL/L (135-145); TOTAL PROTEIN 5.6 GM/DL (6.4-8.2)
--- NOTE | 2019-08-19 08:43 | Occupational Ther Daily Note ---
OT Current Status-Daily Note Subjective Pt seen initially at 8:13 but said that he was too exhausted and in pain to work. He had pain meds about an hour ago and they hadn't fully taken effect yet. OT was able to delay tx for 1/2 hour. Appearance Sleepy, reporting unable to participate initially. Mental Status/Objective Patient Orientation: Person, Place, Time, Situation Attachments: Saline Lock ADL-Treatment Pt seen in room, up in bed, reluctantly agreeable to OT. Pt able to use urinal in bed and reported that he had been up several times to walk to the bathroom with nursing, FWW (about 20 feet). Used BSC over toilet. Pt prepped for sponge bath and dressing but he became increasingly diaphoretic and flushed. He reported that he felt unsafe to stand so ADLs were going to be done in bed. Reviewed anterior hip precautions with pt. Nursing contacted to take vitals. BP, HR, O2 OK but blood sugar below 50. Pt continued to feel bad and was unable to continue OT while recovering. Pt left in be in nursing care. Therapy Code Descriptions/Definitions Functional Hector Measure: 0=Not Assessed/NA 4=Minimal Assistance 1=Total Assistance 5=Supervision or Setup 2=Maximal Assistance 6=Modified Hector 3=Moderate Assistance 7=Complete IndependenceSCALE: Activities may be completed with or without assistive devices. 5-Mtzeykcckp-gpsfeuy completes the activity by him/herself with no assistance from a helper. 5-Set-up or Clean-up Assistance-helper sets up or cleans up; patient completes activity. [place] assists only prior to or following the activity. 4-Supervision or Touching Assistance-helper provides verbal cues and/or touching/steadying and/or contact guard assistance as patient completes activity. Assistance may be provided throughout the activity or intermittently. 3-Partial/Moderate Assistance-helper does LESS THAN HALF the effort. [place] lifts, holds or supports trunk or limbs, but provides less than half the effort. 2-Substantial/Maximal Assistance-helper does MORE THAN HALF the effort. [place] lifts or holds trunk or limbs and provides more than half the effort. 0-Wwipvsdyo-pggges does ALL the effort. Patient does none of the effort to complete the activity. Or, the assistance of 2 or more helpers is required for the patient to complete the activity. If activity was not attempted, code reason: 7-Patient Refused. 9-Not Applicable-not attempted and the patient did not perform the activity before the current illness, exacerbation or injury. 10-Not Attempted due to Environmental Limitations-(lack of equipment, weather restraints, etc.). 88-Not Attempted due to Medical Conditions or Safety Concerns. Education OT Patient Education: Purpose of tx/functional activities, Reviewed precautions, Rehab process Teaching Recipient: Patient Teaching Methods: Discussion Response to Teaching: Verbalize Understanding OT Short Term Goals Short Term Goals Time Frame: Aug 27, 2019 OT Half-Way Goals Half-Way Goals Time Frame: Sep 03, 2019 Eating (QC): 6 Oral Hygiene (QC): 6 Toileting Hygiene (QC): 6 Shower/Bathe Self (QC): 6 Upper Body Dressing (QC): 6 Lower Body Dressing (QC): 6 On/Off Footwear (QC): 6 Additional Goals: 1-Demonstrate ADL Tasks, 2-Verbalize Understanding, 3-ImproveStrength/Yifan 1=Demonstrate adherence to instructed precautions during ADL tasks. 2=Patient will verbalize/demonstrate understanding of assistive devices/modifications for ADL. 3=Patient will improve strength/tolerance for activity to enable patient to perf orm ADL's. OT Education/Plan Discharge Recommendations Plan/Recommendations: Continue POC Treatment Plan/Plan of Care Patient would benefit from OT for education, treatment and training to promote independence in ADL's, mobility, safety and/or upper extremity function for ADL's. Plan of Care: ADL Retraining, Caregiver Training, Functional Mobility, Group Exercise/Act as Ind, UE Funct Exercise/Act Treatment Duration: Sep 03, 2019 Frequency: At least 5 of 7 days/Wk (IRF) Estimated Hrs Per Day: 1.5 hours per day Agreement: Yes Rehab Potential: Good Time/GCodes Start Time: 08:45 Stop Time: 09:10 Total Time Billed (hr/min): 25 Billed Treatment Time visit, 25 minutes ADL MARY ELLEN SURESH OT Aug 19, 2019 08:43 POS
[2019-08-19] MEDS ORDERED: NON-FORMULARY MEDICATION 1 EA EA (Citalopram Hydrobromide (Citalopram HBr) 40 MG) PO SCH (09:00)
[2019-08-19] MEDS ORDERED: CHLORTHALIDONE 12.5 MG PO SCH (09:00)
[2019-08-19] MEDS ORDERED: NON-FORMULARY MEDICATION 1 EA EA (Empagliflozin (Jardiance) 25 MG) PO SCH (09:00)
[2019-08-19] MEDS ORDERED: NON-FORMULARY MEDICATION 1 EA EA (Diltiazem HCl (Diltiazem ER) 360 MG) PO SCH (09:00)
--- NOTE | 2019-08-19 09:39 | PM&R Progress Note ---
Subjective HPI/CC On Admission Date Seen by Provider: Aug 19, 2019 Time Seen by Provider: 08:30 Subjective/Events-last exam Pt had a pretty good day. Dr. Oro will be consulted. Potassium 3.1, initiated 3 mEQ of Potassium. Bowel movement X5 last night. RT is working with Pt for a CPAP mask but he is noncompliant. Overall feels pretty good otherwise. Checked meds and labs Reviewed therapy notes Conferred with service shop foreman of Systems General: Fatigue Pulmonary: Dyspnea Musculoskeletal: back pain, hand pain, leg pain Objective Exam Vital Signs Vital Signs Date Time Temp Pulse Resp B/P (MAP) Pulse Ox O2 Delivery O2 Flow Rate FiO2 08/21/19 06:13 36.2 60 16 105/64 (78) 99 Nasal Cannula 3.00 Capillary Refill : General Appearance: No Apparent Distress, WD/WN, Chronically ill, Obese HEENT: PERRL/EOMI, Normal ENT Inspection, Pharynx Normal Neck: Full Range of Motion, Normal Inspection, Non Tender, Supple, Carotid Bruit Respiratory: Chest Non Tender, Normal Breath Sounds, No Accessory Muscle Use, No Respiratory Distress, Decreased Breath Sounds Cardiovascular: Regular Rate, Rhythm, No Gallop, No JVD, No Murmur, Normal Peripheral Pulses Gastrointestinal: Normal Bowel Sounds, No Organomegaly, No Pulsatile Mass, Non Tender, Soft Back: Normal Inspection, No CVA Tenderness, No Vertebral Tenderness Extremity: Normal Capillary Refill, Normal Inspection, Normal Range of Motion, Non Tender, No Calf Tenderness, Pedal Edema Neurologic/Psychiatric: Alert, Oriented x3, No Motor/Sensory Deficits (decreased in legs), Normal Mood/Affect, bridal sales consultant II-XII Norm as Tested Skin: Normal Color, Warm/Dry Lymphatic: No Adenopathy Results/Procedures Lab Laboratory Tests 08/21/19 06:08 Patient resulted labs reviewed. FIM Transfers Therapy Code Descriptions/Definitions Functional [place] Measure: 0=Not Assessed/NA 4=Minimal Assistance 1=Total Assistance 5=Supervision or Setup 2=Maximal Assistance 6=Modified [place] 3=Moderate Assistance 7=Complete IndependenceSCALE: Activities may be completed with or without assistive devices. 3-Zbceksdfwh-qtqoysu completes the activity by him/herself with no assistance from a helper. 5-Set-up or Clean-up Assistance-helper sets up or cleans up; patient completes activity. [place] assists only prior to or following the activity. 4-Supervision or Touching Assistance-helper provides verbal cues and/or touching/steadying and/or contact guard assistance as patient completes activity. Assistance may be provided throughout the activity or intermittently. 3-Partial/Moderate Assistance-helper does LESS THAN HALF the effort. [place] lifts, holds or supports trunk or limbs, but provides less than half the effort. 2-Substantial/Maximal Assistance-helper does MORE THAN HALF the effort. [place] lifts or holds trunk or limbs and provides more than half the effort. 0-Irchwdesx-ebpald does ALL the effort. Patient does none of the effort to complete the activity. Or, the assistance of 2 or more helpers is required for the patient to complete the activity. If activity was not attempted, code reason: 7-Patient Refused. 9-Not Applicable-not attempted and the patient did not perform the activity before the current illness, exacerbation or injury. 10-Not Attempted due to Environmental Limitations-(lack of equipment, weather restraints, etc.). 88-Not Attempted due to Medical Conditions or Safety Concerns. Roll Left to Right (QC): 3 Sit to Lying (QC): 3 Sit to Stand (QC): 4 Chair/Rlv-ll-Fqrtk Xfer(QC): 3 Car Transfer (QC): 2 (max assist to complete. ) Gait Training Does the Patient Walk?: No and Walking Goal IS indicated Walk 10 feet (QC): 88 Walk 50 ft with 2 Turns(QC): 88 Walk 150 ft (QC): 88 Walking 10ft/uneven surface-QC: 88 Gait Assistive Device: FWW Wheelchair Training Does the Pt Use a Wheelchair?: Yes Wheel 50 ft with 2 turns (QC): 6 Wheel 150 ft (QC): 6 Type of Wheelchair: Motorized Stair Training 1 Step (curb) (QC): 88 4 Steps (QC): 88 12 Steps (QC): 88 Balance Picking up an Object (QC): 88 ADL-Treatment Eating (QC): 6 Oral Hygiene (QC): 3 (Pt sat EOB during task, OT set up at tray table. Pt able to open denture tablet, placing tablet and dentures into container. OT then assisted with rinsing dentrues, pt scrubbed with toothpaste and tooth brush (required max encouragement), then OT rinsed dentures again. Pt then able to put dentures back into his mouth.) Shower/Bathe Self (QC): 3 (Pt able to wash BUE, chest, abdomen, periarea, and BLE thighs. He required assistance with BLE lower legs/feet, and buttocks during stand. ) Upper Body Dressing (QC): 5 (set up) Lower Body Dressing (QC): 1 (Pt required total assistance for doffing brief. Assistance for threading BLE into brief, pt then able to manage up over hips during stand at FWW.) On/Off Footwear (QC): 1 (Pt required total assist with task) Toileting Hygiene (QC): 2 (Pt required assistance with all parts of clothing management, pt able to complete toilet hygiene.) Toilet Transfer (QC): 2 (SPT with grab bars) Assessment/Plan Assessment and Plan Assess & Plan/Chief Complaint Assessment: Right hip replacement Chronic pain h/o ETOHism CAD OAC Hypotension Hypokalemia Plan: Monitor closely Potassium supplement IRF protocol (1) Debility (2) CAD (coronary artery disease) (3) Diabetes mellitus (4) Pacemaker (5) Atrial fibrillation (6) IBS (irritable bowel syndrome) (7) KRAIG (obstructive sleep apnea) (8) Hypertension (9) Hyperlipemia (10) Depression (11) BPH (benign prostatic hyperplasia) (12) Status post right hip replacement TOLU PENA DO Aug 19, 2019 09:39 POS
[2019-08-19] MEDS: DILTIAZEM 180 MG (CARDIZEM CD) CAP PO SCH (09:45)
[2019-08-19] MEDS: CYANOCOBALAMIN 1,000 MCG (VITAMIN B-12) TABLET PO SCH (09:45)
[2019-08-19] MEDS: meTOprolol TARTRATE 50 MG (LOPRESSOR) TAB PO SCH ×2 (09:46→20:06)
[2019-08-19] MEDS: FUROSEMIDE 40 MG (LASIX) TAB PO SCH (09:46)
[2019-08-19] MEDS: SPIRONOLACTONE 25 MG (ALDACTONE) TAB PO SCH (09:54)
[2019-08-19] MEDS: APIXABAN 5 MG (ELIQUIS) TABLET PO SCH ×2 (09:54→20:06)
[2019-08-19] MEDS: FINASTERIDE (PROSCAR) 5 MG TAB PO SCH (09:54)
[2019-08-19] MEDS: DIGOXIN 0.25 MG (LANOXIN) TAB PO SCH (09:55)
[2019-08-19] MEDS: IBUPROFEN 600 MG (MOTRIN) TAB PO SCH ×3 (09:55→20:07)
[2019-08-19] MEDS: GABAPENTIN 300 MG (NEURONTIN) CAP PO SCH ×2 (09:55→13:58)
[2019-08-19] MEDS: POLYETHYLENE GLYCOL 17 GM (MIRALAX) PACK PO SCH ×2 (09:59→20:04)
[2019-08-19] MEDS: DOCUSATE SODIUM 100 MG (COLACE) CAP PO SCH (09:59)
[2019-08-19] MEDS: SENNA W/DOCUSATE (SENOKOT S) TABLET PO SCH ×2 (10:00→20:07)
--- NOTE | 2019-08-19 10:28 | Physical Therapy Progress Note ---
Therapy Progress Note IT SOLUTIONS ARCHITECT arrives to start Rx and Nurse present finishing morning meds. Nurse informed IT SOLUTIONS ARCHITECT that pt's Blood Sugar was low this morning (in 40's) and is now 77 but pt continues to be lethargic. Pt is falling asleep talking to IT SOLUTIONS ARCHITECT and while attempting EX. IT SOLUTIONS ARCHITECT will return in pm and try again. 1, FA (20m) & EX (10m) Time: [id number] LYNN TORREZ PTA Aug 19, 2019 10:28 POS
--- NOTE | 2019-08-19 10:34 | Consultation-Cardiology ---
HPI-Cardiology Cardiology Consultation: Date of Consultation 08/19/19 Time Seen by a Provider: 10:20 Date of Admission 08-18-19 Attending Physician Debby Ramirez DO Admitting Physician Geetha,Local Physician Consulting Physician Lisa Oro MD HPI: Mr. Martinez is a 68 year old male who has been admitted to 223 post right THR at [facility] in [place], [place]. His primary air shovel operator is Dr. Almanza at [facility] in [place], [place]. He is very drowsy at the time of exam d/t receiving pain medication. He denies any c/o CP, palpitations or dyspnea. Review of Systems-Cardiology Review of Systems Other comments D/T fatigue a very limited ROS was able to be obtained. 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 Family Medical History Family Medical History: Documented h/o mother having a CVA. Family History: Alcoholism 19 FATHER 19 MOTHER G8 BROTHER Arthritis 19 FATHER 19 MOTHER G8 BROTHER Completed stroke 19 MOTHER Hypertension G8 BROTHER Tuberculosis Allergies and Home Medications Allergies Coded Allergies: Iodine and Iodide Containing Produc (Verified Allergy, Unknown, 08/18/19) Penicillins (Verified Allergy, Unknown, 08/18/19) nifedipine (Verified Allergy, Unknown, 08/18/19) Home Medications Apixaban 5 Mg Tablet, 5 MG PO BID, (Reported) Atorvastatin Calcium 80 Mg Tablet, 40 MG PO HS, (Reported) TAKES 1/2 (80MG) TABLET Chlorthalidone 25 Mg Tablet, 12.5 MG PO DAILY, (Reported) TAKES 1/2 (25MG) TABLET Citalopram Hydrobromide 40 Mg Tablet, 40 MG PO DAILY, (Reported) Cyanocobalamin (Vitamin B-12) 1,000 Mcg Tablet, 1,000 MCG PO DAILY, (Reported) Digoxin 250 Mcg Tablet, 250 MCG PO DAILY, (Reported) Diltiazem HCl 360 Mg Capsule.er, 360 MG PO DAILY, (Reported) Docusate Sodium 100 Mg Capsule, 100 MG PO DAILY, (Reported) LAST FILLED #60 06-02-19 Empagliflozin 25 Mg Tablet, 25 MG PO DAILY, (Reported) Finasteride 5 Mg Tablet, 5 MG PO DAILY, (Reported) Furosemide 40 Mg Tablet, 40 MG PO DAILY, (Reported) Gabapentin 400 Mg Capsule, 400 MG PO HS, (Reported) Gabapentin 300 Mg Capsule, 300 MG PO 0800,1200, (Reported) Hydroxyzine HCl 25 Mg Tablet, 25 MG PO QID PRN for ANXIETY, (Reported) Insulin Aspart 300 Units/3 Ml Solution, 18 UNITS SC AC, (Reported) Insulin Glargine,Hum.rec.anlog 100 Unit/1 Ml Vial, 70 UNITS SC BID, (Reported) LAST FILLED #50 10-29-18 Metformin HCl 1,000 Mg Tablet, 1,000 MG PO BID, (Reported) Metoprolol Tartrate 100 Mg Tablet, 100 MG PO BID, (Reported) Nabumetone 500 Mg Tablet, 500 MG PO BID, (Reported) Potassium Chloride 10 Meq Tablet.er, 10 MEQ PO BID, (Reported) Spironolactone 25 Mg Tablet, 50 MG PO DAILY, (Reported) TAKES 2 (25MG) TABLETS Patient Home Medication List Home Medication List Reviewed: Yes Physical Exam-Cardiology Physical Exam Vital Signs/I&O 08/24/19 06:00 Temp 35.6 Pulse 65 Resp 18 B/P (MAP) 96/65 (75) Pulse Ox 98 O2 Delivery Room Air 08/24/19 00:00 Intake Total 2025 ml Output Total 1520 ml Balance 505 ml Capillary Refill : Constitutional: No apparent distress; other (drowsy, awakens easily, drifts back to sleep) HEENT: hearing is well preserved, oral hygience is good Neck: No carotid bruit Respiratory: No accessory muscle use, No respiratory distress; chest expansion is symmetric, chest is bilaterally symmetric, lungs clear to auscultation Cardiovascular: regular rate-rhythm; No JVD; S1 and S2 Gastrointestinal: No tender; soft Extremities: other (mod RLE swelling) Neurologic/Psychiatric: other (moves extremities) Skin: No rash on exposed areas, No ulcerations on exposed areas Data Review Labs Laboratory Tests 08/23/19 17:01: Glucometer 140H 08/23/19 20:44: Glucometer 158H 08/24/19 05:58: Glucometer 164H 08/24/19 06:28: Sodium Level 134L, Potassium Level 3.7, Chloride Level 96L, Carbon Dioxide Level 26, Anion Gap 12, Blood Urea Nitrogen 12, Creatinine 0.91, Estimat Glomerular Filtration Rate > 60, BUN/Creatinine Ratio 13, Glucose Level 139H, Calcium Level 9.2, Corrected Calcium 9.8, Magnesium Level 1.7, Total Bilirubin 1.8H, Aspartate Amino Transf (AST/SGOT) 46H, Alanine Aminotransferase (ALT/SGPT) 55, Alkaline Phosphatase 245H, Total Protein 6.2L, Albumin 3.2, Digoxin Level 1.07 08/24/19 10:52: Glucometer 146H A/P-Cardiology Assessment/Admission Diagnosis S/P R THR at [facility] in [place], [place] by Dr. Olivier Reported h/o CAD with NM in January 2019 - details unavailable H/O PPM implant in January 2019 - reasons unknown H/O A-fib OAC with Eliquis Chronic anemia DM HTN HLD Obesity Discussion and Recomendations Continue home medications, including ASA and OAC Request records for Jo and Dr. Almanza Replace electrolytes Monitor lab Clinical Quality Measures DVT/VTE Risk/Contraindication: Risk Factor Score Per Nursin RFS Level Per Nursing on Admit: 4+=Very High CATHY MYERS Aug 19, 2019 10:34 POS
--- NOTE | 2019-08-19 11:26 | Occ Therapy Progress Note ---
Therapy Progress Note Pt had low blood sugar this AM. Nursing told OT pt's blood sugar had improved and he was OK to be seen. OT attempted to see pt, pt stated he did not want to get out of bed for fear that he would fall and have to stay in the hospital longer. OT informed pt that she had talked to his nurse who stated he is OK to be seen for therapy, encouraging him to participate. Pt again declined, stating he just wanted another blueberry yogurt and he did not want to complete therapy at this time. OT will attempt again later. 1, visit 11:15 AM INDIGO PERDOMO OT Aug 19, 2019 11:26 POS
--- NOTE | 2019-08-19 14:25 | Occupational Ther Daily Note ---
OT Current Status-Daily Note Subjective Pt sleeping in bed, woke to name. Pt lethargic initially and was not able to keep eyes open. As pt becomes more alert, states that he is dizzy and does not want to do OOB activities. LEW discussed with pt about activities to strengthen in supine. Pt then agrees. Mental Status/Objective Patient Orientation: Person, Place, Time, Situation ADL-Treatment Pt declined sponge bath or changing clothing at this time. Pt was able to complete bed mobility using bed rails. Therapy Code Descriptions/Definitions Functional [place] Measure: 0=Not Assessed/NA 4=Minimal Assistance 1=Total Assistance 5=Supervision or Setup 2=Maximal Assistance 6=Modified [place] 3=Moderate Assistance 7=Complete IndependenceSCALE: Activities may be completed with or without assistive devices. 2-Jxrrquanfv-lzjihhg completes the activity by him/herself with no assistance from a helper. 5-Set-up or Clean-up Assistance-helper sets up or cleans up; patient completes activity. [place] assists only prior to or following the activity. 4-Supervision or Touching Assistance-helper provides verbal cues and/or touching/steadying and/or contact guard assistance as patient completes activit y. Assistance may be provided throughout the activity or intermittently. 3-Partial/Moderate Assistance-helper does LESS THAN HALF the effort. [place] lifts, holds or supports trunk or limbs, but provides less than half the effort. 2-Substantial/Maximal Assistance-helper does MORE THAN HALF the effort. [place] lifts or holds trunk or limbs and provides more than half the effort. 4-Sxmyvmhkm-arqjlz does ALL the effort. Patient does none of the effort to complete the activity. Or, the assistance of 2 or more helpers is required for the patient to complete the activity. If activity was not attempted, code reason: 7-Patient Refused. 9-Not Applicable-not attempted and the patient did not perform the activity before the current illness, exacerbation or injury. 10-Not Attempted due to Environmental Limitations-(lack of equipment, weather restraints, etc.). 88-Not Attempted due to Medical Conditions or Safety Concerns. Other Treatment Pt agreed to B UE activities to increase gross and fine motor strength for daily activities. Pt was able to manipulate small objects during UE gross motor tasks against gravity. Pt was able to reach and place items in designated area. After therapy, pt lying in bed with call light/phone in reach. All needs met in room. Nrsg in room. OT Short Term Goals Short Term Goals Time Frame: Aug 27, 2019 OT Intermediate Goals Intermediate Goals Time Frame: Sep 03, 2019 Eating (QC): 6 Oral Hygiene (QC): 6 Toileting Hygiene (QC): 6 Shower/Bathe Self (QC): 6 Upper Body Dressing (QC): 6 Lower Body Dressing (QC): 6 On/Off Footwear (QC): 6 Additional Goals: 1-Demonstrate ADL Tasks, 2-Verbalize Understanding, 3- ImproveStrength/Yifan 1=Demonstrate adherence to instructed precautions during ADL tasks. 2=Patient will verbalize/demonstrate understanding of assistive devices/modifications for ADL. 3=Patient will improve strength/tolerance for activity to enable patient to perform ADL's. OT Education/Plan Problem List/Assessment Assessment: Decreased Activ Tolerance, Decreased UE Strength, Impaired Coordination, Impaired Funct Balance, Impaired Self-Care Skills Discharge Recommendations Plan/Recommendations: Continue POC Treatment Plan/Plan of Care Patient would benefit from OT for education, treatment and training to promote independence in ADL's, mobility, safety and/or upper extremity function for ADL's. Plan of Care: ADL Retraining, Caregiver Training, Functional Mobility, Group Exercise/Act as Ind, UE Funct Exercise/Act Treatment Duration: Sep 03, 2019 Frequency: At least 5 of 7 days/Wk (IRF) Estimated Hrs Per Day: 1.5 hours per day Agreement: Yes Rehab Potential: Good Time/GCodes Start Time: 12:55 Stop Time: 14:00 Total Time Billed (hr/min): 65 Billed Treatment Time 1 visit-EX 4 (65 min) ELEAZAR ESCOBEDO Aug 19, 2019 14:25 POS
--- NOTE | 2019-08-19 15:32 | NUR ---
RD ASSESSMENT PMHx: COPD; afib; CAD; hypercholesterolemia; HTN; chronic constipation; DM PT INTERACTION: Pt was awake and pleasant during nutrition assessment. Pt states current appetite is good and has been for awhile. Note pt avg PO intake of 25% x2meal, per chart review. Pt states following a diet where he restricts bread, sugar and "some coffee," and limits his intake to "lemon water with salt," and the occasional beer. Pt state recent episodes of nausea today. Pt states no recent issues with constipation. Note last BM was 08/19 (x3), and pt currently on bowel regimen of colace BID; miralax BID; senna BID; and bisacodyl PRN, per chart review. Pt states recent intentional 40# wt loss x6mon. Note unable to determine recent wt hx, per chart review. Pt states current DM management is "pretty good" and that his average blood glucose is around 150. Note unable to determine recent HbA1c, per chart review. ABNORMAL NUTRITION-RELATED LAB VALUES LOW: K 3.1; Ca 8.0; Pro 5.6 HIGH: AST 38 Est. kcal needs: 2606-5766 kcal | 20-25 kcal/kg Est. Pro needs: 81-102 g Pro | 0.8-1.0 g Pro/kg PES STATEMENT: Inadequate oral intake (NI-2.1) related to loss of appetite | nausea as evidenced by pt interview | avg PO intake 25% x2meal INTERVENTION: Continue with current diet order of CHO 60g/m 3snack diet. Add Glucerna (vary) to meals BID for increased kcal intake. Provides 220 kcal and 10 g Pro per serving. Encouraged pt to eat when able. Will continue to follow and reassess as pt needs and status change. MONITOR/EVALUATE: PO Intake; Plan of Care; Hydration Status; Weight Status; Lab Values Ashutosh Page, MS, RD, LD
--- NOTE | 2019-08-19 15:46 | Physical Therapy Daily Note ---
PT Daily Note-Current Subjective Pt laying Supine in bed although able to remain this afternoon. Pt reluctantly agrees to complete limited Supine EX in bed. Pt reports "you are going to have to help me because I can't move my leg". Pain Numeric Pain Scale: 10-Worst Possible Pain Location: Right Location Body Site: Hip Pain Description: Stabbing, Sharp Comment: Pt has just received pain med, facial expression does reflect amt of pain. Mental Status Patient Orientation: Person, Place, Situation Transfers SCALE: Activities may be completed with or without assistive devices. 2-Jcbkuggcdq-jhwocni completes the activity by him/herself with no assistance from a helper. 5-Set-up or Clean-up Assistance-helper sets up or cleans up; patient completes activity. [place] assists only prior to or following the activity. 4-Supervision or Touching Assistance-helper provides verbal cues and/or touchin g/steadying and/or contact guard assistance as patient completes activity. Assistance may be provided throughout the activity or intermittently. 3-Partial/Moderate Assistance-helper does LESS THAN HALF the effort. [place] lifts, holds or supports trunk or limbs, but provides less than half the effort. 2-Substantial/Maximal Assistance-helper does MORE THAN HALF the effort. [place] lifts or holds trunk or limbs and provides more than half the effort. 0-Atbkcubhf-avmdgh does ALL the effort. Patient does none of the effort to complete the activity. Or, the assistance of 2 or more helpers is required for the patient to complete the activity. If activity was not attempted, code reason: 7-Patient Refused. 9-Not Applicable-not attempted and the patient did not perform the activity before the current illness, exacerbation or injury. 10-Not Attempted due to Environmental Limitations-(lack of equipment, weather restraints, etc.). 88-Not Attempted due to Medical Conditions or Safety Concerns. Weight Bearing Right Lower Extremity: Right Weight Bearing/Tolerated Left Lower Extremity: Left Full Weight Bearing Gait Training Does the Patient Walk?: No and Walking Goal IS indicated Exercises Supine Ex: Ankle pumps, Quad Set, Heel Slides, Straight leg raise, Hip abd/add Supine Reps: 15 Treatments Pt completes Supine Ex in bed with a few RB as needed. Pt continues to ask for assistance from SEWER CLEANER (RICHY). Assessment Current Status: Fair Progress Pt demonstrates lack of motivation to work with Therapists. Pt does report wanting to walk more than 100' for goal although pt has not walked that far in more than 4 years and not motivated. PT Short Term Goals Short Term Goals Time Frame: Sep 01, 2019 Roll Left & Right: 4 Sit to lyin Lying to sitting on side of be: 4 Sit to stand: 3 Walk 10 feet: 3 PT Chcf Goals Chcf Goals PT Chcf Goals Time Frame: Sep 15, 2019 Roll Left & Right (QC): 6 Sit to Lying (QC): 6 Lying-Sitting on Side/Bed(QC): 6 Sit to Stand (QC): 6 Chair/Dks-ez-[place] Xfer(QC): 6 Toilet Transfer (QC): 6 Car Transfer (QC): 4 Does the Patient Walk: No and Walking Goal IS indicated Walk 10 feet (QC): 5 Walk 50ft with 2 Turns (QC): 9 Walk 150 ft (QC): 9 Walking 10ft on Uneven Surface: 9 1 Step (curb) (QC): 9 4 Steps (QC): 9 12 Steps (QC): 9 Picking up an Object (QC): 9 Does the Pt use WC or Scooter?: Yes Wheel 50 feet with 2 turns (QC: 6 Type: Motorized Wheel 150 feet: 6 Type: Motorized PT Plan Problem List Problem List: Activity Tolerance, Functional Strength, Safety, Balance, Gait, Transfer, Bed Mobility, ROM Treatment/Plan Treatment Plan: Continue Plan of Care Treatment Plan: Bed Mobility, Education, Functional Activity Yifan, Functional Strength, Group Therapy, Gait, Safety, Therapeutic Exercise, Transfers Treatment Duration: Sep 15, 2019 Frequency: At least 5 of 7 days/Wk (IRF) Estimated Hrs Per Day: 1.5 hours per day Patient and/or Family Agrees t: Yes Safety Risks/Education Patient Education: Correct Positioning, Safety Issues Teaching Recipient: Patient Teaching Methods: Discussion Response to Teaching: Verbalize Understanding Time/GCodes Time In: 1400 Time Out: 1430 Total Billed Treatment Time: 30 Total Billed Treatment 1, EX x2 (30m) LYNN TORREZ SEWER CLEANER Aug 19, 2019 15:46 POS
[2019-08-19 16:00] VITALS: BP 93/58
--- NOTE | 2019-08-19 16:46 | NUR ---
Initial assessment completed with patient who admitted 08/18/19 from [facility] for post op right hip replacement. Patient's daughter Manjeet Capellan and ASTER/POA Clif Capellan are here from [place], [place] to support patient at this time. Patient resided at home alone in [facility] with in-home services 2 hours daily x 5 days per week [place]. He indicates this was managed through [facility] in [facility], to be explored/confirmed. Contact there is Manju, . DME: Patient [facility] power wheelchair, FWW[facility]oc[facility]. He is on continuous O2 at this time and need will be monitored for updating of agency if O2 Rx changes. He also indicates he needs his CPAP adjusted because he quit using it until reset. PCP: [facility]. INSURANCE: Medicare with supplement [place] Medicaid. PHARMACY: Preference is [facility], secondary is [facility]. Patient goal is to use his wheelchair less and be able to ambulate farther distances, including shopping and socializing. Weekly Team Conference was discussed and patient/family indicated understanding. Patient will be reviewed 08/25/19 for progress and next steps. Answered patient/family questions to their satisfaction, continue intermittent reviews and updates.
--- NOTE | 2019-08-19 17:31 | Consultation-Cardiology ---
HPI-Cardiology Cardiology Consultation: Date of Consultation 08/19/19 Time Seen by a Provider: 17:05 Date of Admission Attending Physician Debby Ramirez DO Admitting Physician No,Local Physician Consulting Physician THERESE VOGEL MD, MA, FACP, FACC, [facility] HPI: Chief Complaint: Reason for consultation: H/o A Fib, CAD, permanent pacemaker HPI Mr. Martinez is a 68 year old male who has been admitted to 223 post right THR at [facility] in [place], [place]. His primary auto vinyl top installer is Dr. Almanza at [facility] in [place], [place]. He denies any c/o CP, palpitations or dyspnea. At time of my exam, he is feeling well and does not report any symptoms. Family notes heart rate has been high during therapy for which meds were recently adjusted at [facility]. Had a pacemaker placed about [address] Medina for heart rate in the 20s and episodes of passing out (none since) Review of Systems-Cardiology Review of Systems Constitutional: malaise, tiredness Eyes: No vision change Ears/Nose/Throat: No ear discharge, No nasal drainage, No recent hearing loss Respiratory: As described under HPI Cardiovascular: As described under HPI Gastrointestinal: No diarrhea, No nausea, No vomiting Genitourinary: No dysuria, No hematuria, No urine frequency changes Musculoskeletal: back pain (chronic) Skin: No rash, No ulcerations Psychiatric/Neurological: As described under HPI; No seizure, No focal weakness Hematologic: No bleeding abnormalities All Other Systems Reviewed Negative Unless Noted: Yes CDK-Xepuny-Jpkztm Hx Patient Social History Marrital Status: single 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 Family Medical History Family Medical History: Documented h/o mother having a CVA. Family History: Alcoholism 19 FATHER 19 MOTHER G8 BROTHER Arthritis 19 FATHER 19 MOTHER G8 BROTHER Completed stroke 19 MOTHER Hypertension G8 BROTHER Tuberculosis Allergies and Home Medications Allergies Coded Allergies: Iodine and Iodide Containing Produc (Verified Allergy, Unknown, 08/18/19) Penicillins (Verified Allergy, Unknown, 08/18/19) nifedipine (Verified Allergy, Unknown, 08/18/19) Home Medications Apixaban 5 Mg Tablet, 5 MG PO BID, (Reported) Atorvastatin Calcium 80 Mg Tablet, 40 MG PO HS, (Reported) TAKES 1/2 (80MG) TABLET Chlorthalidone 25 Mg Tablet, 12.5 MG PO DAILY, (Reported) TAKES 1/2 (25MG) TABLET Citalopram Hydrobromide 40 Mg Tablet, 40 MG PO DAILY, (Reported) Cyanocobalamin (Vitamin B-12) 1,000 Mcg Tablet, 1,000 MCG PO DAILY, (Reported) Digoxin 250 Mcg Tablet, 250 MCG PO DAILY, (Reported) Diltiazem HCl 360 Mg Capsule.er, 360 MG PO DAILY, (Reported) Docusate Sodium 100 Mg Capsule, 100 MG PO DAILY, (Reported) LAST FILLED #60 06-02-19 Empagliflozin 25 Mg Tablet, 25 MG PO DAILY, (Reported) Finasteride 5 Mg Tablet, 5 MG PO DAILY, (Reported) Furosemide 40 Mg Tablet, 40 MG PO DAILY, (Reported) Gabapentin 400 Mg Capsule, 400 MG PO HS, (Reported) Gabapentin 300 Mg Capsule, 300 MG PO 0800,1200, (Reported) Hydroxyzine HCl 25 Mg Tablet, 25 MG PO QID PRN for ANXIETY, (Reported) Insulin Aspart 300 Units/3 Ml Solution, 18 UNITS SC AC, (Reported) Insulin Glargine,Hum.rec.anlog 100 Unit/1 Ml Vial, 70 UNITS SC BID, (Reported) LAST FILLED #50 10-29-18 Metformin HCl 1,000 Mg Tablet, 1,000 MG PO BID, (Reported) Metoprolol Tartrate 100 Mg Tablet, 100 MG PO BID, (Reported) Nabumetone 500 Mg Tablet, 500 MG PO BID, (Reported) Potassium Chloride 10 Meq Tablet.er, 10 MEQ PO BID, (Reported) Spironolactone 25 Mg Tablet, 50 MG PO DAILY, (Reported) TAKES 2 (25MG) TABLETS Patient Home Medication List Home Medication List Reviewed: Yes Physical Exam-Cardiology Physical Exam Vital Signs/I&O 08/19/19 06:17 Temp 36.7 Pulse 77 Resp 18 B/P (MAP) 126/74 (91) Pulse Ox 100 O2 Delivery Room Air 08/19/19 00:00 Intake Total 1240 ml Balance 1240 ml Capillary Refill : Constitutional: No apparent distress; other (drowsy, awakens easily, drifts back to sleep) HEENT: hearing is well preserved, oral hygience is good Neck: No carotid bruit Respiratory: No accessory muscle use, No respiratory distress; chest expansion is symmetric, chest is bilaterally symmetric, lungs clear to auscultation Cardiovascular: regular rate-rhythm; No JVD; S1 and S2 Gastrointestinal: No tender; soft Extremities: other (mod RLE swelling) Neurologic/Psychiatric: other (moves extremities) Skin: No rash on exposed areas, No ulcerations on exposed areas Data Review Labs Laboratory Tests 08/18/19 20:37: Glucometer 146H 08/19/19 05:44: Glucometer 65L 08/19/19 06:40: White Blood Count 8.4, Red Blood Count 3.13L, Hemoglobin 10.2L, Hematocrit 30L, Mean Corpuscular Volume 94, Mean Corpuscular Hemoglobin 33, Mean Corpuscular Hemoglobin Concent 35, Red Cell Distribution Width 12.9, Platelet Count 227, Mean Platelet Volume 8.9, Neutrophils (%) (Auto) 72, Lymphocytes (%) (Auto) 14, Monocytes (%) (Auto) 13H, Eosinophils (%) (Auto) 1, Basophils (%) (Auto) 0, Neutrophils # (Auto) 6.1, Lymphocytes # (Auto) 1.2, Monocytes # (Auto) 1.1H, Eo sinophils # (Auto) 0.0, Basophils # (Auto) 0.0, Sodium Level 135, Potassium Level 3.1L, Chloride Level 100, Carbon Dioxide Level 23, Anion Gap 12, Blood Urea Nitrogen 15, Creatinine 0.74, Estimat Glomerular Filtration Rate > 60, BUN/Creatinine Ratio 20, Glucose Level 76, Calcium Level 8.0L, Corrected Calcium 8.6, Total Bilirubin 0.5, Aspartate Amino Transf (AST/SGOT) 38H, Alanine Aminotransferase (ALT/SGPT) 41, Alkaline Phosphatase 101, Total Protein 5.6L, Albumin 3.2, Digoxin Level 0.60L 08/19/19 09:03: Glucometer 46*L 08/19/19 09:28: Glucometer 77 08/19/19 10:50: Glucometer 126H 08/19/19 15:48: Glucometer 126H A/P-Cardiology Assessment/Admission Diagnosis S[facility] [place] by Dr. Olivier Report NH about [address] Dickens undertook a w/u and Mr Amilcar report he was told his CAD was inoperable H/O PPM implant in January [address] Medina at [facility] - Apparently for symptomatic bradycardia H/O A-fib OAC with Eliquis Chronic anemia DM HTN HLD Obesity Discussion and Recomendations * Continue previous meds, including ASA and OAC * Request records [facility] and Dr. Almanza * Replace electrolytes * Monitor lab * Echo Clinical Quality Measures DVT/VTE Risk/Contraindication: Risk Factor Score Per Nursin RFS Level Per Nursing on Admit: 4+=Very High THERESE VOGEL MD FACP FAC CCDS Aug 19, 2019 17:31 POS
[2019-08-19] MEDS: GABAPENTIN 400 MG (NEURONTIN) CAP PO SCH (20:06)
[2019-08-19] MEDS: CALCIUM CARBONATE 500 MG (TUMS) TAB.CHEW PO PRN (20:10)
--- NOTE | 2019-08-19 21:23 | Individualized Plan of Care ---
Individualized Plan of Care Rehab Nursing IPOC Order Admission Date Aug 18, 2019 at 12:45 Current Orders Orders Admission Order(Inpt,Obs,Sdc) (08/18/19 09:59) Vital Signs: Per Unit Policy ( 08,16,00 (08/18/19 09:59) Daryl Vela , (08/18/19 09:59) Sequential Compression Device Q4H (08/18/19 09:59) Mill Roll Rewinder-Inpt Rehab Con (08/18/19 09:59) Rehab Nursing Orders-Ipoc (08/18/19 09:59) Physical Therapy Rehab Orders (08/18/19 09:59) Occupational Therapy Rehab Ord (08/18/19 09:59) Speech Therapy Rehab Orders (08/18/19 09:59) Cbc With Automated Diff (08/19/19 06:00) Comprehensive Metabolic Panel (08/19/19 06:00) Intake & Output 06,14,22 (08/18/19 09:59) Precautions (Aru) (08/18/19 09:59) Weekly Weight WEEK (08/18/19 09:59) Rehab-Intensity Of Therapy (08/18/19 09:59) Cho 60g/M 3snack (16-2000 Nino) (08/18/19 Lunch) Initiate Admission Nursing Pro .admission (08/18/19 09:59) Acetaminophen Tablet (Tylenol Tablet) (08/18/19 10:00) Alprazolam Tablet (Xanax Tablet) (08/18/19 10:00) Calcium Carbonate Chew Tablet (Antacid C (08/18/19 10:00) Diphenhydramine Tablet (Benadryl Tablet) (08/18/19 10:00) Docusate Sodium Capsule (Colace Capsule) (08/18/19 21:00) Docusate Sodium Capsule (Colace Capsule) (08/18/19 10:00) Bisacodyl Suppository (Dulcolax Supposit (08/18/19 10:00) Lactulose Oral Solution (Enulose Oral So (08/18/19 10:00) Na Phos/Na Biphos Enema (Fleet Enema Ant (08/18/19 10:00) Guaifenesin/Codeine Syrup (Robitussin Ac (08/18/19 10:00) Loperamide Tablet (Imodium Tablet) (08/18/19 10:00) Melatonin Tablet (Melatonin Tablet) (08/18/19 10:00) Polyethylene Glycol Powder Pkt (Miralax (08/18/19 21:00) Ondansetron Oral Dissolve Tab (Zofran (08/18/19 10:00) Senna S Tablet (Senokot S Tablet) (08/18/19 21:00) Code/Resuscitation (08/18/19 09:59) Initiate Admission Nursing Pro .admission (08/18/19 09:59) Patient Visit (08/18/19 ) Pt Eval Moderate Complexity (08/18/19 ) Patient Visit (08/18/19 ) Exercise Therap, Ea 15 Min (08/18/19 ) Functional Activities, Ea 15 (08/18/19 ) Patient Visit (08/18/19 ) Speech Sound Lang Comp (08/18/19 ) Apixaban Tablet (Eliquis Tablet) (08/18/19 21:00) Atorvastatin Tablet (Lipitor Tablet) (08/18/19 21:00) Cyanocobalamin Tablet (Vitamin B-12 Tabl (08/19/19 09:00) Digoxin Tablet (Lanoxin Tablet) (08/19/19 09:00) Docusate Sodium Capsule (Colace Capsule) (08/19/19 09:00) Ferrous Sulfate Tablet (Feosol Tablet) (08/18/19 17:30) Finasteride Tablet (Proscar Tablet) (08/19/19 09:00) Furosemide Tablet (Lasix Tablet) (08/19/19 09:00) Gabapentin Capsule/Tablet (Neurontin Cap (08/19/19 08:00) Gabapentin Capsule/Tablet (Neurontin Cap (08/18/19 21:00) Ondansetron Oral Dissolve Tab (Zofran (08/18/19 17:15) Potassium Chloride (Tablet) (Klor Con Ta (08/18/19 17:30) Spironolactone Tablet (Aldactone Tablet) (08/19/19 09:00) (Nf) Chlorthalidone (08/19/19 09:00) (Nf) Citalopram Hydrobromide (Citalopram (08/19/19 09:00) (Nf) Diltiazem Hcl (Diltiazem Er) (08/19/19 09:00) (Nf) Empagliflozin (Jardiance) (08/19/19 09:00) (Nf) Hydroxyzine Hcl (08/18/19 17:15) (Nf) Insulin Aspart (Novolog Flexpen) (08/19/19 06:00) (Nf) Insulin Glargine,Hum.Rec.Anlog (Capo (08/18/19 21:00) (Nf) Metformin Hcl (08/18/19 21:00) (Nf) Metoprolol Tartrate (08/18/19 21:00) Hydrocodone/Apap 7.5/325 Tab (Lortab 7. (08/18/19 17:15) Digoxin (08/19/19 06:00) Consult Cardiology (08/18/19 17:06) Atorvastatin Tablet (Lipitor) (08/18/19 21:00) Insulin Aspart (Novolog) (Novolog (Charg (08/19/19 06:00) Insulin Determir (Per Unit) (Levemir (Pe (08/18/19 21:00) Metformin Tablet (Glucophage Tablet) (08/18/19 17:30) Metoprolol Tartrate (Ir) Tab (Lopressor (08/18/19 21:00) Diltiazem Cd 24 Hr Capsule (Cardizem Cd (08/19/19 09:00) Citalopram Tablet (Celexa Tablet) (08/19/19 09:00) Hydroxyzine Cap/Tab (Vistaril) (08/18/19 17:30) Chlorthalidone Tablet (Hygroton Tablet) (08/19/19 07:00) Oxygen-Administer (08/18/19 21:23) Oxygen Delivery Set Up (08/18/19 21:23) Ibuprofen Tablet (Motrin Tablet) (08/19/19 09:00) Obtain Records From (Order) (08/19/19 10:34) Ekg Tracing (08/19/19 10:36) Insulin Determir (Per Unit) (Levemir (Pe (08/20/19 07:00) Insulin Aspart (Novolog) (Novolog (Charg (08/19/19 16:00) Patient Visit (08/19/19 ) Functional Activities, Ea 15 (08/19/19 ) Exercise Therap, Ea 15 Min (08/19/19 ) Echo W Doppler/Color Flow (08/20/19 06:00) (Nf) Empagliflozin (Jardiance) (08/20/19 09:00) Ns Iv 500 Ml (Sodium Chloride 0.9%) (08/20/19 13:37) Ns Iv 1000 Ml (Sodium Chloride 0.9%) (08/20/19 13:45) Patient Visit (08/20/19 ) Exercise Therap, Ea 15 Min (08/20/19 ) Gait Training, Ea 15 Min (08/20/19 ) Functional Activities, Ea 15 (08/20/19 ) Patient Visit (08/20/19 ) Functional Activities, Ea 15 (08/20/19 ) Magnesium (08/21/19 05:00) Basic Metabolic Panel (08/21/19 05:00) Thyroid Stimulating Hormone (08/21/19 05:00) Rehab Nursing Orders: Ongoing Assess. of Cognitive Status, Ongoing Assess. of Function Status, Bladder Scan, Bladder Training, Bowel Management, Bowel Training, Disease Management & Educaiton, DVT Prophylaxis, Fall Prevention, Fluid/Electrolyte/Nutrition Mgmt, Infection Prevention, Medication Management & Education, Management of Risks & Complications, Management of Skin Intergrity, Nutrition Management, Pain Management, Patient/Family Support, Safety Management Intensity of Therapy to be met Patient to be seen: 15 hrs over 7 cons. days PT IPOC Problem List: Activity Tolerance, Functional Strength, Safety, Balance, Gait, Transfer, Bed Mobility, ROM Treatment Plan: Continue Plan of Care Bed Mobility, Education, Functional Activity Yifan, Functional Strength, Group Therapy, Gait, Safety, Therapeutic Exercise, Transfers Treatment Duration: Sep 15, 2019 Frequency: At least 5 of 7 days/Wk (IRF) Estimated Hrs Per Day: 1.5 hours per day OT IPOC Problems: Decreased Activ Tolerance, Decreased UE Strength, Impaired Coordination, Impaired Funct Balance, Impaired Self-Care Skills OT Treatment, Training and Edu: Yes Plan of Care: ADL Retraining, Caregiver Training, Functional Mobility, Group Exercise/Act as Ind, UE Funct Exercise/Act Treatment Duration: Sep 03, 2019 Frequency: At least 5 of 7 days/Wk (IRF) Estimated Hrs Per Day: 1.[address] IPOC Speech Therapy Treatment Plan: Discontinue ST Treatment Duration: Aug 18, 2019 Frequency: 1 time per week Estimated Hrs Per Day: .25 hour per day Mill Roll Rewinder/Case Mgmt Mill Roll Rewinder/Case Managemen: Discharge Planning Dietitian/Power Truck Driver Dietitian/Power Truck Driver to monitor nutritional status and make changes and/or recommendations as needed and work with speech pathology on dietary upgrades as the occur. Physician IPOC Medical Issues being managed closely and that require the 24 hour availability of a physician: Recent major surgery with chronic debility bound to wheelchair and lives alone so monitor for ETOH withdrawal issues Medical Issues: Bowel/Bladder Function, DVT Prophylaxis, Falls Precautions, Fluid/Electrolyte/Nutrition Balance, Pain Management Brief Synthesis of Preadmission Screen, Post-Admission Evaluation, and Therapy Evaluations: PT will focus on ambulation with walker and transfers to wheelchair he uses at home OT will help regain independence following joint replacement Medical Prognosis: Good Anticipated Length of Stay: 7 days TOLU PENA DO Aug 19, 2019 21:23 POS
[2019-08-20] MEDS: HYDROcodone/APAP 7.5 MG/325 MG (LORTAB, LORCET PLUS) TABLET PO PRN ×4 (03:26→20:23)
[2019-08-20] MEDS: inSUlin ASPART (NovoLOG) 1 UNIT/0.01 ML (CHARGE PER UNIT) SC SCH ×4 (05:38→20:38)
--- NOTE | 2019-08-20 06:08 | Progress Note ---
[facility] 08/20/19 0608: Progress Note Time: 0810 Subjective: Patient presents to the in-patient rehab unit after a hip replacement by Dr. Olivier at [facility]. Pain is down to an 8. Was notified by family member that the Patient was a chronic alcoholic then quit the day before surgery. and that the patient can be manipulative with therapy and pain medication Patient does feel better, but is bloated and has not had a bowel movement for 2 days Objective: General: Alert and Oriented x 3, Pleasant, obese, CV: RRR, no murmurs, no edema Resp: CTAB, no respiratory distress, no accessory muscle use GI: Minimal TTP on RUQ. soft, not distended Assessment: Constipation Post op hip pain Chronic alcoholic Plan: Laxatives PT and OT Monitor vitals for withdrawal Motivate patient DEBBY PENA DO 08/21/19 0802: Supervisory-Addendum Brief Verification & Attestation Participated in pt care: history, MDM, physical Personally performed: exam, history, MDM, supervision of care Care discussed with: Medical Student Procedures: n/a Results interpretation: Verified all documentation Verification and Attestation of Medical Student E/M Service A medical student performed and documented this service in my presence. I reviewed and verified all information documented by the medical student and made modifications to such information, when appropriate. I personally performed the physical exam and medical decision making. Debby Pena, Aug 21, 2019,08:02 [facility] Aug 20, 2019 06:08 DEBBY ALLEN DO Aug 21, 2019 08:02 POS
[2019-08-20 06:25] VITALS: BP 101/64
[2019-08-20] MEDS: FERROUS SULF 325 MG (IRON) TAB PO SCH ×2 (06:25→16:36)
[2019-08-20] MEDS: KCL 10 MEQ TAB (MICRO K) PO SCH ×2 (06:25→16:36)
[2019-08-20] MEDS: metFORMIN 500 MG (GLUCOPHAGE) TAB PO SCH ×2 (06:26→16:36)
[2019-08-20] MEDS: CHLORTHALIDONE 25 MG (HYGROTON) TABLET PO SCH (06:26)
--- NOTE | 2019-08-20 09:09 | Physical Therapy Daily Note ---
PT Daily Note-Current Subjective Pt agreeable to PT session. States he is feeling better today than yesterday. Pain Numeric Pain Scale: 9 Comment: intense burning and hurting, R hip, low back, states had pain med earlier Appearance Upon arrival, pt in bed awake and alert, family present. Pt requesting and assisted to bathroom. At end of session, pt sitting up in recliner with LE's elevated, call light, phone and bedside table within reach, family present. Mental Status Patient Orientation: Person, Place, Time, Eyes Open, Situation Attachments: Oxygen (2 L) Transfers SCALE: Activities may be completed with or without assistive devices. 1-Tksqldkryj-bjwpkwx completes the activity by him/herself with no assistance from a helper. 5-Set-up or Clean-up Assistance-helper sets up or cleans up; patient completes activity. [place] assists only prior to or following the activity. 4-Supervision or Touching Assistance-helper provides verbal cues and/or touching/steadying and/or contact guard assistance as patient completes activity. Assistance may be provided throughout the activity or intermittently. 3-Partial/Moderate Assistance-helper does LESS THAN HALF the effort. [place] lifts, holds or supports trunk or limbs, but provides less than half the effort. 2-Substantial/Maximal Assistance-helper does MORE THAN HALF the effort. [place] lifts or holds trunk or limbs and provides more than half the effort. 6-Hjggufhsl-qjuzda does ALL the effort. Patient does none of the effort to complete the activity. Or, the assistance of 2 or more helpers is required for the patient to complete the activity. If activity was not attempted, code reason: 7-Patient Refused. 9-Not Applicable-not attempted and the patient did not perform the activity before the current illness, exacerbation or injury. 10-Not Attempted due to Environmental Limitations-(lack of equipment, weather restraints, etc.). 88-Not Attempted due to Medical Conditions or Safety Concerns. Lying to Sitting/Side of Bed(Q: 3 (HOB elevated use of bedrail and physical A) Sit to Stand (QC): 4 (CGA) Toilet Transfer (QC): 4 (CGA) skilled inst required for safety and hand placement during sit to and from stand transfers Weight Bearing Right Lower Extremity: Right Weight Bearing/Tolerated Left Lower Extremity: Left Full Weight Bearing Gait Training Does the Patient Walk?: Yes Distance: 15 x2 Walk 10 feet (QC): 4 (CGA) Gait Persons Needed: 1 Gait Assistive Device: FWW decreased WB RLE with slight IR, heavily relies on walker with UE's, slow pace, no LOB Exercises Supine Ex: Ankle pumps, Heel Slides (AAROM RLE), Short Arc Quads (AAROM RLE), Straight leg raise (AAROM RLE), Hip abd/add (AAROM RLE) Supine Reps: 10 (x2 sets BLE's) Seated Therapy Exercises: Sit to stand (x7), Long arc quads (AAROM for full range on RLE), Hip flexion (AAROM RLE), Hip abd/add (AAROM RLE for increased range) Seated Reps: 10 (x2 BLE's) Standing: Heel/toe raises, Marching (mini march emphasizing increased WB RLE), Mini squats, Weight shifts Standing Reps: 10 Treatments education, safety, bed mobility, transfers, gait, balance, strength, activity tolerance, functional mobility Assessment Current Status: Good Progress PT Short Term Goals Short Term Goals Time Frame: Sep 01, 2019 Roll Left & Right: 4 Sit to lyin Lying to sitting on side of be: 4 Sit to stand: 3 Walk 10 feet: 3 PT Passenger Tire Builder Goals Passenger Tire Builder Goals PT Residential Goals Time Frame: Sep 15, 2019 Roll Left & Right (QC): 6 Sit to Lying (QC): 6 Lying-Sitting on Side/Bed(QC): 6 Sit to Stand (QC): 6 Chair/Fyv-mk-Ooaty Xfer(QC): 6 Toilet Transfer (QC): 6 Car Transfer (QC): 4 Does the Patient Walk: No and Walking Goal IS indicated Walk 10 feet (QC): 5 Walk 50ft with 2 Turns (QC): 9 Walk 150 ft (QC): 9 Walking 10ft on Uneven Surface: 9 1 Step (curb) (QC): 9 4 Steps (QC): 9 12 Steps (QC): 9 Picking up an Object (QC): 9 Does the Pt use WC or Scooter?: Yes Wheel 50 feet with 2 turns (QC: 6 Type: Motorized Wheel 150 feet: 6 Type: Motorized PT Plan Treatment/Plan Treatment Plan: Continue Plan of Care Treatment Plan: Bed Mobility, Education, Functional Activity Yifan, Functional Strength, Group Therapy, Gait, Safety, Therapeutic Exercise, Transfers Treatment Duration: Sep 15, 2019 Frequency: At least 5 of 7 days/Wk (IRF) Estimated Hrs Per Day: 1.5 hours per day Patient and/or Family Agrees t: Yes Safety Risks/Education Patient Education: Gait Training, Transfer Techniques, Reviewed Precautions, Reviewed Use of Ice, Correct Positioning, Disease Process, Safety Issues Teaching Recipient: Patient Teaching Methods: Demonstration, Discussion Response to Teaching: Verbalize Understanding, Return Demonstration Time/GCodes Time In: 900 Time Out: 1000 Total Billed Treatment Time: 60 Total Billed Treatment 1 visit, GT x15 min, EX x30 min, FA x15 min MAZIN JOHNSON PTA Aug 20, 2019 09:09 POS
[2019-08-20] MEDS: DILTIAZEM 180 MG (CARDIZEM CD) CAP PO SCH (10:10)
[2019-08-20] MEDS: IBUPROFEN 600 MG (MOTRIN) TAB PO SCH ×3 (10:10→20:23)
[2019-08-20] MEDS: SPIRONOLACTONE 25 MG (ALDACTONE) TAB PO SCH (10:10)
[2019-08-20] MEDS: FUROSEMIDE 40 MG (LASIX) TAB PO SCH (10:11)
[2019-08-20] MEDS: GABAPENTIN 300 MG (NEURONTIN) CAP PO SCH ×2 (10:11→12:32)
[2019-08-20] MEDS: meTOprolol TARTRATE 50 MG (LOPRESSOR) TAB PO SCH ×2 (10:11→20:31)
[2019-08-20] MEDS: DOCUSATE SODIUM 100 MG (COLACE) CAP PO SCH (10:11)
[2019-08-20] MEDS: APIXABAN 5 MG (ELIQUIS) TABLET PO SCH ×2 (10:11→20:22)
[2019-08-20] MEDS: FINASTERIDE (PROSCAR) 5 MG TAB PO SCH (10:12)
[2019-08-20] MEDS: POLYETHYLENE GLYCOL 17 GM (MIRALAX) PACK PO SCH ×2 (10:12→20:24)
[2019-08-20] MEDS: EMPAGLIFLOZIN 25 MG TAB PO SCH (10:13)
[2019-08-20] MEDS: DIGOXIN 0.25 MG (LANOXIN) TAB PO SCH (10:14)
[2019-08-20] MEDS: SENNA W/DOCUSATE (SENOKOT S) TABLET PO SCH ×2 (10:15→20:24)
[2019-08-20] MEDS: CYANOCOBALAMIN 1,000 MCG (VITAMIN B-12) TABLET PO SCH (10:16)
--- NOTE | 2019-08-20 10:53 | PM&R Progress Note ---
Subjective HPI/CC On Admission Date Seen by Provider: Aug 20, 2019 Time Seen by Provider: 09:30 Subjective/Events-last exam Blood sugars are much improved Hypoglycemia is no longer an issue Having bowel movements Family member told staff that he just relapsed from alcoholism recently but there is no evidence of any alcohol withdrawal at this current time He does tend to manipulate and he does increase pain medication utilization at times Reviewed meds and labs Conferred with RN Reviewed therapy notes Review of Systems General: Fatigue Pulmonary: Dyspnea Musculoskeletal: leg pain Objective Exam Vital Signs Vital Signs Date Time Temp Pulse Resp B/P (MAP) Pulse Ox O2 Delivery O2 Flow Rate FiO2 08/21/19 06:13 36.2 60 16 105/64 (78) 99 Nasal Cannula 3.00 Capillary Refill : General Appearance: No Apparent Distress, WD/WN, Chronically ill, Obese HEENT: PERRL/EOMI, Normal ENT Inspection, Pharynx Normal Neck: Full Range of Motion, Normal Inspection, Non Tender, Supple, Carotid Bruit Respiratory: Chest Non Tender, Normal Breath Sounds, No Accessory Muscle Use, No Respiratory Distress, Decreased Breath Sounds Cardiovascular: Regular Rate, Rhythm, No Gallop, No JVD, No Murmur, Normal Peripheral Pulses Gastrointestinal: Normal Bowel Sounds, No Organomegaly, No Pulsatile Mass, Non Tender, Soft Back: Normal Inspection, No CVA Tenderness, No Vertebral Tenderness Extremity: Normal Capillary Refill, Normal Inspection, Normal Range of Motion, Non Tender, No Calf Tenderness, Pedal Edema Neurologic/Psychiatric: Alert, Oriented x3, No Motor/Sensory Deficits (decrea sed in legs), Normal Mood/Affect, vp global II-XII Norm as Tested Skin: Normal Color, Warm/Dry Lymphatic: No Adenopathy Results/Procedures Lab Laboratory Tests 08/21/19 06:08 Patient resulted labs reviewed. FIM Transfers Therapy Code Descriptions/Definitions Functional [place] Measure: 0=Not Assessed/NA 4=Minimal Assistance 1=Total Assistance 5=Supervision or Setup 2=Maximal Assistance 6=Modified [place] 3=Moderate Assistance 7=Complete IndependenceSCALE: Activities may be completed with or without assistive devices. 1-Qhcgfskghq-vlzcugv completes the activity by him/herself with no assistance from a helper. 5-Set-up or Clean-up Assistance-helper sets up or cleans up; patient completes activity. [place] assists only prior to or following the activity. 4-Supervision or Touching Assistance-helper provides verbal cues and/or touching/steadying and/or contact guard assistance as patient completes activity. Assistance may be provided throughout the activity or intermittently. 3-Partial/Moderate Assistance-helper does LESS THAN HALF the effort. [place] lifts, holds or supports trunk or limbs, but provides less than half the effort. 2-Substantial/Maximal Assistance-helper does MORE THAN HALF the effort. [place] lifts or holds trunk or limbs and provides more than half the effort. 5-Kebbggnsv-mjjjqp does ALL the effort. Patient does none of the effort to complete the activity. Or, the assistance of 2 or more helpers is required for the patient to complete the activity. If activity was not attempted, code reason: 7-Patient Refused. 9-Not Applicable-not attempted and the patient did not perform the activity before the current illness, exacerbation or injury. 10-Not Attempted due to Environmental Limitations-(lack of equipment, weather restraints, etc.). 88-Not Attempted due to Medical Conditions or Safety Concerns. Roll Left to Right (QC): 3 Sit to Lying (QC): 3 Sit to Stand (QC): 4 (CGA) Chair/Uej-vj-Dvehu Xfer(QC): 3 Car Transfer (QC): 2 (max assist to complete. ) Gait Training Does the Patient Walk?: Yes Walk 10 feet (QC): 4 (CGA) Walk 50 ft with 2 Turns(QC): 88 Walk 150 ft (QC): 88 Walking 10ft/uneven surface-QC: 88 Gait Assistive Device: FWW Wheelchair Training Does the Pt Use a Wheelchair?: Yes Wheel 50 ft with 2 turns (QC): 6 Wheel 150 ft (QC): 6 Type of Wheelchair: Motorized Stair Training 1 Step (curb) (QC): 88 4 Steps (QC): 88 12 Steps (QC): 88 Balance Picking up an Object (QC): 88 ADL-Treatment Eating (QC): 6 Oral Hygiene (QC): 3 (Pt sat EOB during task, OT set up at tray table. Pt able to open denture tablet, placing tablet and dentures into container. OT then assisted with rinsing dentrues, pt scrubbed with toothpaste and tooth brush (required max encouragement), then OT rinsed dentures again. Pt then able to put dentures back into his mouth.) Shower/Bathe Self (QC): 3 (Pt able to wash BUE, chest, abdomen, periarea, and BLE thighs. He required assistance with BLE lower legs/feet, and buttocks during stand. ) Upper Body Dressing (QC): 5 (set up) Lower Body Dressing (QC): 1 (Pt required total assistance for doffing brief. Assistance for threading BLE into brief, pt then able to manage up over hips during stand at FWW.) On/Off Footwear (QC): 1 (Pt required total assist with task) Toileting Hygiene (QC): 2 (Pt required assistance with all parts of clothing management, pt able to complete toilet hygiene.) Toilet Transfer (QC): 2 (SPT with grab bars) Assessment/Plan Assessment and Plan Assess & Plan/Chief Complaint Assessment: Status post uncomplicated right hip replacement Atrial fibrillation CAD Alcoholism Hypertension Diabetes mellitus Hypoglycemic episode Debility chronic Anemia Hypokalemia Hypotension Plan: Inpatient rehab protocol Monitor potassium Supplement potassium Appreciate cardiology Monitor blood sugar and blood pressure (1) Debility (2) CAD (coronary artery disease) (3) Diabetes mellitus (4) Pacemaker (5) Atrial fibrillation (6) IBS (irritable bowel syndrome) (7) KRAIG (obstructive sleep apnea) (8) Hypertension (9) Hyperlipemia (10) Depression (11) BPH (benign prostatic hyperplasia) (12) Status post right hip replacement TOLU PENA DO Aug 20, 2019 10:52 POS
--- NOTE | 2019-08-20 11:15 | Occupational Ther Daily Note ---
OT Current Status-Daily Note Subjective Pt alert, sitting in recliner. Pt agrees to therapy. C/o pain, meds had been given 30 min prior to therapy session. Mental Status/Objective Patient Orientation: Person, Place, Time, Situation Attachments: IV ADL-Treatment Pt declined shower stating that he had already washed up and brushed teeth. Pt did not want to change out of hospital gown. LEW encouraged pt to complete theses tasks in session, but pt was adamant not to. Pt did ambulated to bathroom using FWW with CGA and transferred to toilet using FWW and grabbars with supervision. Pt completed toileting with supervision. Pt ambulated to sink to wash hands. Pt sat EOB to demonstrate knowledge of using dressing stick and sock aide. Pt then transferred back to recliner to complete exercises in room. Therapy Code Descriptions/Definitions Functional [place] Measure: 0=Not Assessed/NA 4=Minimal Assistance 1=Total Assistance 5=Supervision or Setup 2=Maximal Assistance 6=Modified [place] 3=Moderate Assistance 7=Complete IndependenceSCALE: Activities may be completed with or without assistive devices. 9-Nazfijucsl-asdddkr completes the activity by him/herself with no assistance from a helper. 5-Set-up or Clean-up Assistance-helper sets up or cleans up; patient completes activity. [place] assists only prior to or following the activity. 4-Supervision or Touching Assistance-helper provides verbal cues and/or touching/steadying and/or contact guard assistance as patient completes activity. Assistance may be provided throughout the activity or intermittently. 3-Partial/Moderate Assistance-helper does LESS THAN HALF the effort. [place] lifts, holds or supports trunk or limbs, but provides less than half the effort. 2-Substantial/Maximal Assistance-helper does MORE THAN HALF the effort. [place] lifts or holds trunk or limbs and provides more than half the effort. 5-Wqjolnfrl-kvdgth does ALL the effort. Patient does none of the effort to complete the activity. Or, the assistance of 2 or more helpers is required for the patient to complete the activity. If activity was not attempted, code reason: 7-Patient Refused. 9-Not Applicable-not attempted and the patient did not perform the activity before the current illness, exacerbation or injury. 10-Not Attempted due to Environmental Limitations-(lack of equipment, weather restraints, etc.). 88-Not Attempted due to Medical Conditions or Safety Concerns. Shower/Bathe Self (QC): 7 Upper Body Dressing (QC): 7 Lower Body Dressing (QC): 7 (Footwear (QC)5) Toileting Hygiene (QC): 4 Toilet Transfer (QC): 4 Other Treatment Pt completed arm bike for 15 min at 20 long resistance to increase strength and activity tolerance for daily functional tasks. After therapy, pt lying in bed with call light/phone in reach. All needs met in room. OT Short Term Goals Short Term Goals Time Frame: Aug 27, 2019 OT Clothing Pattern Preparer Goals Clothing Pattern Preparer Goals Time Frame: Sep 03, 2019 Eating (QC): 6 Oral Hygiene (QC): 6 Toileting Hygiene (QC): 6 Shower/Bathe Self (QC): 6 Upper Body Dressing (QC): 6 Lower Body Dressing (QC): 6 On/Off Footwear (QC): 6 Additional Goals: 1-Demonstrate ADL Tasks, 2-Verbalize Understanding, 3- ImproveStrength/Yifan 1=Demonstrate adherence to instructed precautions during ADL tasks. 2=Patient will verbalize/demonstrate understanding of assistive kaya whitney/modifications for ADL. 3=Patient will improve strength/tolerance for activity to enable patient to perform ADL's. OT Education/Plan Problem List/Assessment Assessment: Decreased Activ Tolerance, Decreased UE Strength, Impaired Coordination, Impaired Funct Balance, Impaired Self-Care Skills Discharge Recommendations Plan/Recommendations: Continue POC Treatment Plan/Plan of Care Patient would benefit from OT for education, treatment and training to promote independence in ADL's, mobility, safety and/or upper extremity function for ADL's. Plan of Care: ADL Retraining, Caregiver Training, Functional Mobility, Group Exercise/Act as Ind, UE Funct Exercise/Act Treatment Duration: Sep 03, 2019 Frequency: At least 5 of 7 days/Wk (IRF) Estimated Hrs Per Day: 1.5 hours per day Agreement: Yes Rehab Potential: Good Time/GCodes Start Time: 11:00 Stop Time: 12:00 Total Time Billed (hr/min): 60 Billed Treatment Time 1 visit-ADL 3 (45 min) EX 1 (15 min) ELEAZAR ESCOBEDO Aug 20, 2019 11:14 POS
--- NOTE | 2019-08-20 11:24 | NUR ---
Brief visit with ASTER here this a.m., he indicates patient has improved to be able to participate in therapy today. Monitor progress.
[2019-08-20 13:21] VITALS: BP 99/61
[2019-08-20] MEDS ORDERED: NS IV 500 ML 500 ML IV STA (13:37)
--- NOTE | 2019-08-20 15:12 | Occupational Ther Daily Note ---
OT Current Status-Daily Note Subjective Pt alert, lying in bed. BP-supine with HOB elevated (88/63), inverted supine (104/58) with 30 sec recovery, supine flat (97/59) with 30 sec recovery, inverted with HOB elevated (100/63) with 30 sec recovery. Discussed with nrsg and pt left in bed with feet elevated and HOB elevated. Mental Status/Objective Patient Orientation: Person, Place, Time, Situation Attachments: IV, Oxygen (2L) ADL-Treatment Therapy Code Descriptions/Definitions Functional [place] Measure: 0=Not Assessed/NA 4=Minimal Assistance 1=Total Assistance 5=Supervision or Setup 2=Maximal Assistance 6=Modified [place] 3=Moderate Assistance 7=Complete IndependenceSCALE: Activities may be completed with or without assistive devices. 7-Jdshguahcs-ocbzvjy completes the activity by him/herself with no assistance from a helper. 5-Set-up or Clean-up Assistance-helper sets up or cleans up; patient completes activity. [place] assists only prior to or following the activity. 4-Supervision or Touching Assistance-helper provides verbal cues and/or touchi ng/steadying and/or contact guard assistance as patient completes activity. Assistance may be provided throughout the activity or intermittently. 3-Partial/Moderate Assistance-helper does LESS THAN HALF the effort. [place] lifts, holds or supports trunk or limbs, but provides less than half the effort. 2-Substantial/Maximal Assistance-helper does MORE THAN HALF the effort. [place] lifts or holds trunk or limbs and provides more than half the effort. 8-Aiobhfndc-niilkk does ALL the effort. Patient does none of the effort to complete the activity. Or, the assistance of 2 or more helpers is required for the patient to complete the activity. If activity was not attempted, code reason: 7-Patient Refused. 9-Not Applicable-not attempted and the patient did not perform the activity before the current illness, exacerbation or injury. 10-Not Attempted due to Environmental Limitations-(lack of equipment, weather restraints, etc.). 88-Not Attempted due to Medical Conditions or Safety Concerns. Other Treatment Co-treat with PT due to pt's medical issues, increased fatigue. Skills of 2 clinicians required for skilled instructions, modification and monitoring. PT focused on mobility and OT focused on toileting. Pt unable to sit up or do OOB tasks due to issues with BP. Pt was able to complete bed mobility using bed rails with bed inverted. Pt also able to place urinal and wash hands with wipes after. Assist to empty urinal. Pt having issues with BP, see subjective note. After therapy, pt lying in bed with call light/phone in reach. All needs met in room. OT Short Term Goals Short Term Goals Time Frame: Aug 27, 2019 OT Half-Way Goals Half-Way Goals Time Frame: Sep 03, 2019 Eating (QC): 6 Oral Hygiene (QC): 6 Toileting Hygiene (QC): 6 Shower/Bathe Self (QC): 6 Upper Body Dressing (QC): 6 Lower Body Dressing (QC): 6 On/Off Footwear (QC): 6 Additional Goals: 1-Demonstrate ADL Tasks, 2-Verbalize Understanding, 3- ImproveStrength/Yifan 1=Demonstrate adherence to instructed precautions during ADL tasks. 2=Patient will verbalize/demonstrate understanding of assistive devices/modifications for ADL. 3=Patient will improve strength/tolerance for activity to enable patient to perform ADL's. OT Education/Plan Problem List/Assessment Assessment: Decreased Activ Tolerance, Impaired Self-Care Skills Discharge Recommendations Plan/Recommendations: Continue POC Treatment Plan/Plan of Care Patient would benefit from OT for education, treatment and training to promote independence in ADL's, mobility, safety and/or upper extremity function for ADL's. Plan of Care: ADL Retraining, Caregiver Training, Functional Mobility, Group Exercise/Act as Ind, UE Funct Exercise/Act Treatment Duration: Sep 03, 2019 Frequency: At least 5 of 7 days/Wk (IRF) Estimated Hrs Per Day: 1.5 hours per day Agreement: Yes Rehab Potential: Good Time/GCodes Start Time: 14:30 Stop Time: 15:00 Total Time Billed (hr/min): 30 Billed Treatment Time 1 visit-FA 2 (30 min) ELEAZAR ESCOBEDO Aug 20, 2019 15:12 POS
--- NOTE | 2019-08-20 15:16 | NUR ---
Initial visit: Pt had four visitors present. The pt welcomed me and engaged in sharing about the cause of his admission. 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 The pt is Jehovah Witness and attends a hoahaoism in [place], [place] where he lives. His hoahaoism is providing emotional and spiritual support at this time.
[2019-08-20] MEDS: NS IV 1000 ML 1,000 ML IV SCH (15:30)
--- NOTE | 2019-08-20 15:41 | Physical Therapy Daily Note ---
PT Daily Note-Current Subjective Pt agreeable to therapy session. Pain Comment: pain R hip and knee, pt giving no pain rating Appearance Upon arrival, pt supine in bed with HOB slightly elevated, pt visiting with family. Co tx with OT. At end of session, pt laying supine in bed inverted ~5 degrees (feet above heart) with HOB slightly elevated. Mental Status Patient Orientation: Person, Time, Eyes Open, Situation Attachments: Oxygen (2L), IV Transfers SCALE: Activities may be completed with or without assistive devices. 2-Svjcdvsbdq-bsxfata completes the activity by him/herself with no assistance from a helper. 5-Set-up or Clean-up Assistance-helper sets up or cleans up; patient completes activity. [place] assists only prior to or following the activity. 4-Supervision or Touching Assistance-helper provides verbal cues and/or touching/steadying and/or contact guard assistance as patient completes activity. Assistance may be provided throughout the activity or intermittently. 3-Partial/Moderate Assistance-helper does LESS THAN HALF the effort. [place] lifts, holds or supports trunk or limbs, but provides less than half the effort. 2-Substantial/Maximal Assistance-helper does MORE THAN HALF the effort. [place] lifts or holds trunk or limbs and provides more than half the effort. 2-Qsegtimbf-aahomo does ALL the effort. Patient does none of the effort to complete the activity. Or, the assistance of 2 or more helpers is required for the patient to complete the activity. If activity was not attempted, code reason: 7-Patient Refused. 9-Not Applicable-not attempted and the patient did not perform the activity before the current illness, exacerbation or injury. 10-Not Attempted due to Environmental Limitations-(lack of equipment, weather restraints, etc.). 88-Not Attempted due to Medical Conditions or Safety Concerns. Roll Left & Right (QC): 4 Weight Bearing Right Lower Extremity: Right Weight Bearing/Tolerated Left Lower Extremity: Left Full Weight Bearing Treatments Pt alert, lying in bed. BP-supine with HOB elevated (88/63), inverted supine (104/58) with 30 sec recovery, supine flat (97/59) with 30 sec recovery, inverted with HOB elevated (100/63) with 30 sec recovery. Discussed with nrsg and pt left in bed with feet elevated and HOB elevated. Co-treat with OT due to pt's medical issues, increased fatigue. Skills of 2 clinicians required for skilled instructions, modification and monitoring. PT focused on mobility and OT focused on toileting. Pt unable to sit up or do OOB tasks due to issues with BP. Pt was able to complete bed mobility using bed rails with bed inverted. Pt also able to place urinal and wash hands with wipes after. Assist to empty urinal. Pt having issues with BP. After therapy, pt lying in bed with call light/phone in reach. All needs met in room. Assessment problems with orthostatic hypotension this afternoon PT Short Term Goals Short Term Goals Time Frame: Sep 01, 2019 Roll Left & Right: 4 Sit to lyin Lying to sitting on side of be: 4 Sit to stand: 3 Walk 10 feet: 3 PT Firewood Cutter Goals Residential Goals PT Firewood Cutter Goals Time Frame: Sep 15, 2019 Roll Left & Right (QC): 6 Sit to Lying (QC): 6 Lying-Sitting on Side/Bed(QC): 6 Sit to Stand (QC): 6 Chair/Pfm-al-Kzunq Xfer(QC): 6 Toilet Transfer (QC): 6 Car Transfer (QC): 4 Does the Patient Walk: No and Walking Goal IS indicated Walk 10 feet (QC): 5 Walk 50ft with 2 Turns (QC): 9 Walk 150 ft (QC): 9 Walking 10ft on Uneven Surface: 9 1 Step (curb) (QC): 9 4 Steps (QC): 9 12 Steps (QC): 9 Picking up an Object (QC): 9 Does the Pt use WC or Scooter?: Yes Wheel 50 feet with 2 turns (QC: 6 Type: Motorized Wheel 150 feet: 6 Type: Motorized PT Plan Treatment/Plan Treatment Plan: Continue Plan of Care Treatment Plan: Bed Mobility, Education, Functional Activity Yifan, Functional Strength, Group Therapy, Gait, Safety, Therapeutic Exercise, Transfers Treatment Duration: Sep 15, 2019 Frequency: At least 5 of 7 days/Wk (IRF) Estimated Hrs Per Day: 1.5 hours per day Patient and/or Family Agrees t: Yes Safety Risks/Education Patient Education: Reviewed Precautions, Safety Issues Teaching Recipient: Patient Teaching Methods: Discussion Response to Teaching: Verbalize Understanding Time/GCodes Time In: 1430 Time Out: 1500 Total Billed Treatment Time: 30 Total Billed Treatment 1 visit, FA x30 min MAZIN JOHNSON WIRE BOUND BOX MACHINE OPERATOR Aug 20, 2019 15:41 POS
[2019-08-20 18:01] VITALS: BP 93/56
--- NOTE | 2019-08-20 19:22 | Progress Note - Cardiology ---
Cardiology SOAP Progress Note Subjective: No cp or palp or syncope Notes dizziness with posture changed Weakness present, generalized Good appetite No N/V No swelling Objective: I&O/Vital Signs 08/20/19 08/20/19 08/20/19 09:00 13:21 18:01 Temp 36.8 Pulse 69 60 Resp 16 B/P (MAP) 99/61 (74) 93/56 (68) Pulse Ox 98 O2 Delivery Nasal Cannula Nasal Cannula O2 Flow Rate 2.00 3.00 08/20/19 00:00 Intake Total 980 ml Output Total 2300 ml Balance -1320 ml Constitutional: No apparent distress; other (drowsy, awakens easily, drifts back to sleep) Respiratory: No accessory muscle use, No respiratory distress; chest expansion is symmetric, chest is bilaterally symmetric, lungs clear to auscultation Cardiovascular: regular rate-rhythm; No JVD; S1 and S2 Gastrointestional: No tender; soft Extremities: other (mod RLE swelling) Neurologic/Psychiatric: other (moves extremities) Skin: No rash on exposed areas, No ulcerations on exposed areas Results/Procedures: Labs Laboratory Tests 08/19/19 20:44: Glucometer 165H 08/20/19 05:37: Glucometer 90 08/20/19 10:55: Glucometer 163H 08/20/19 15:26: Glucometer 126H Laboratory Tests 08/19/19 06:40 A/P: Assessment: Postural hypotension, likely related to meds and volume depletion Hypokalemia due to diuretic therapy (on two diuretics: chlorthalidone and furosemide) S/P R THR at [facility] in [place], [place] by Dr. Olivier Report MA about [address] Dickens undertook a w/u and Mr Fitzgerald report he was told his CAD was inoperable H/O PPM implant in January [address] Medina at [facility] - Apparently for symptomatic bradycardia Echo on 08/20/19: LVEF 45-50%, mild to mod AI, mod MAC, RVSP 25 mmHg H/O A-fib OAC with Eliquis Chronic anemia DM HTN HLD Obesity Plan: * D/c chlorthalidone * Replace electrolytes * Check TSH * Monitor lab * I spoke with him and explained his CV issues and the CV w/u carried out at [facility] and our recs (summarized above) THERESE VOGEL MD FACP FACC CCDS Aug 20, 2019 19:22 POS
[2019-08-20] MEDS: GABAPENTIN 400 MG (NEURONTIN) CAP PO SCH (20:23)
[2019-08-20] MEDS: MELATONIN 3 MG TABLET PO PRN (20:24)
[2019-08-20 20:30] VITALS: BP 99/66
[2019-08-21] MEDS: NS IV 1000 ML 1,000 ML IV SCH (02:24)
[2019-08-21] MEDS: inSUlin ASPART (NovoLOG) 1 UNIT/0.01 ML (CHARGE PER UNIT) SC SCH ×4 (05:50→21:00)
[2019-08-21] MEDS: KCL 10 MEQ TAB (MICRO K) PO SCH ×2 (06:02→17:06)
[2019-08-21] MEDS: metFORMIN 500 MG (GLUCOPHAGE) TAB PO SCH ×2 (06:02→17:06)
[2019-08-21] MEDS: HYDROcodone/APAP 7.5 MG/325 MG (LORTAB, LORCET PLUS) TABLET PO PRN ×4 (06:02→21:11)
[2019-08-21] MEDS: FERROUS SULF 325 MG (IRON) TAB PO SCH ×2 (06:02→17:06)
[2019-08-21 06:13] VITALS: BP 105/64
[2019-08-21 06:45] LABS: BUN/CREATININE RATIO 20; CALCIUM 8.5 MG/DL (8.5-10.1); CARBON DIOXIDE 23 MMOL/L (21-32); CHLORIDE 102 MMOL/L (98-107); CREATININE SERUM 0.74 MG/DL (0.60-1.30); GFR ESTIMATED > 60; GLUCOSE 112 MG/DL (70-105); MAGNESIUM 1.6 MG/DL (1.6-2.4); POTASSIUM 3.6 MMOL/L (3.6-5.0); SODIUM 136 MMOL/L (135-145)
[2019-08-21] MEDS: DILTIAZEM 180 MG (CARDIZEM CD) CAP PO SCH (09:28)
[2019-08-21] MEDS: DOCUSATE SODIUM 100 MG (COLACE) CAP PO SCH (09:29)
[2019-08-21] MEDS: DIGOXIN 0.25 MG (LANOXIN) TAB PO SCH (09:29)
[2019-08-21] MEDS: GABAPENTIN 300 MG (NEURONTIN) CAP PO SCH ×2 (09:29→13:29)
[2019-08-21] MEDS: IBUPROFEN 600 MG (MOTRIN) TAB PO SCH ×3 (09:29→20:58)
[2019-08-21] MEDS: FUROSEMIDE 40 MG (LASIX) TAB PO SCH (09:30)
[2019-08-21] MEDS: SENNA W/DOCUSATE (SENOKOT S) TABLET PO SCH ×2 (09:30→21:00)
[2019-08-21] MEDS: APIXABAN 5 MG (ELIQUIS) TABLET PO SCH ×2 (09:30→20:58)
[2019-08-21] MEDS: FINASTERIDE (PROSCAR) 5 MG TAB PO SCH (09:30)
[2019-08-21] MEDS: CYANOCOBALAMIN 1,000 MCG (VITAMIN B-12) TABLET PO SCH (09:31)
--- NOTE | 2019-08-21 09:34 | Occupational Ther Daily Note ---
OT Current Status-Daily Note Subjective Pt laying in bed at start of session, agreeable to OT tx with moderate encouragement. Pt said "Is toileting part of therapy, I could go in there and sit awhile" Mental Status/Objective Attachments: IV ADL-Treatment Therapy Code Descriptions/Definitions Functional [place] Measure: 0=Not Assessed/NA 4=Minimal Assistance 1=Total Assistance 5=Supervision or Setup 2=Maximal Assistance 6=Modified [place] 3=Moderate Assistance 7=Complete IndependenceSCALE: Activities may be completed with or without assistive devices. 9-Zlftgmmiak-tkovhwd completes the activity by him/herself with no assistance from a helper. 5-Set-up or Clean-up Assistance-helper sets up or cleans up; patient completes activity. [place] assists only prior to or following the activity. 4-Supervision or Touching Assistance-helper provides verbal cues and/or touching/steadying and/or contact guard assistance as patient completes activity. Assistance may be provided throughout the activity or intermittently. 3-Partial/Moderate Assistance-helper does LESS THAN HALF the effort. [place] lifts, holds or supports trunk or limbs, but provides less than half the effort. 2-Substantial/Maximal Assistance-helper does MORE THAN HALF the effort. [place] lifts or holds trunk or limbs and provides more than half the effort. 1-Xczvbtexd-cttdpm does ALL the effort. Patient does none of the effort to complete the activity. Or, the assistance of 2 or more helpers is required for the patient to complete the activity. If activity was not attempted, code reason: 7-Patient Refused. 9-Not Applicable-not attempted and the patient did not perform the activity before the current illness, exacerbation or injury. 10-Not Attempted due to Environmental Limitations-(lack of equipment, weather restraints, etc.). 88-Not Attempted due to Medical Conditions or Safety Concerns. Lower Body Dressing (QC): 4 (Min verbal cues in order to doff/don brief using floral designer. Pt stated "I can't do it, you are going to have to". Max encouragement required for pt to use floral designer to complete task.) Toileting Hygiene (QC): 4 (SBA for clothing management and hygiene, pt able to complete all parts.) Toilet Transfer (QC): 4 (CGA on/off BSC over toilet) Other Treatment Pt laying in bed at start of session, Mod A for supine to sit (assistance with LLE). Sitting EOB, pt's blood pressure 101/63. Pt then stood up stated he was not dizzy, attempted to take blood pressure during stand but unable to get a reading. Pt then ambulated to the bathroom using FWW with CGA, OT assisted with management of IV pole. Pt sat on BSC over toilet to complete toileting and lower body dressing. Pt then used FWW to go to the recliner, CGA with assist with IV. Post OT session, pt seated upright in recliner, call light in reach and all needs met. Education OT Patient Education: Correct positioning, Energy conservation, Modified ADL techniques, Progress toward Goal/Update tx plan, Purpose of tx/functional activities, Transfer techniques Teaching Recipient: Patient Teaching Methods: Demonstration, Discussion Response to Teaching: Verbalize Understanding, Reinforcement Needed OT Short Term Goals Short Term Goals Time Frame: Aug 27, 2019 OT Skilled Nursing Goals Skilled Nursing Goals Time Frame: Sep 03, 2019 Eating (QC): 6 Oral Hygiene (QC): 6 Toileting Hygiene (QC): 6 Shower/Bathe Self (QC): 6 Upper Body Dressing (QC): 6 Lower Body Dressing (QC): 6 On/Off Footwear (QC): 6 Additional Goals: 1-Demonstrate ADL Tasks, 2-Verbalize Understanding, 3- ImproveStrength/Yifan 1=Demonstrate adherence to instructed precautions during ADL tasks. 2=Patient will verbalize/demonstrate understanding of assistive devices/modifications for ADL. 3=Patient will improve strength/tolerance for activity to enable patient to perform ADL's. OT Education/Plan Problem List/Assessment Assessment: Decreased Activ Tolerance, Decreased UE Strength, Impaired Funct B alance, Impaired I ADL's, Impaired Self-Care Skills Discharge Recommendations Plan/Recommendations: Continue POC Treatment Plan/Plan of Care Patient would benefit from OT for education, treatment and training to promote independence in ADL's, mobility, safety and/or upper extremity function for ADL's. Plan of Care: ADL Retraining, Caregiver Training, Functional Mobility, Group Exercise/Act as Ind, UE Funct Exercise/Act Treatment Duration: Sep 03, 2019 Frequency: At least 5 of 7 days/Wk (IRF) Estimated Hrs Per Day: 1.5 hours per day Agreement: Yes Rehab Potential: Good Time/GCodes Start Time: 08:50 Stop Time: 09:20 Total Time Billed (hr/min): 30 Billed Treatment Time 1, ADL 2 INDIGO PERDOMO OT Aug 21, 2019 09:34 POS
[2019-08-21] MEDS: SPIRONOLACTONE 25 MG (ALDACTONE) TAB PO SCH (09:37)
[2019-08-21] MEDS: meTOprolol TARTRATE 50 MG (LOPRESSOR) TAB PO SCH ×2 (09:37→20:59)
[2019-08-21] MEDS: EMPAGLIFLOZIN 25 MG TAB PO SCH (09:38)
[2019-08-21] MEDS: POLYETHYLENE GLYCOL 17 GM (MIRALAX) PACK PO SCH ×2 (09:39→20:59)
--- NOTE | 2019-08-21 10:04 | Physical Therapy Daily Note ---
PT Daily Note-Current Subjective Pain rated 10/10 (R) hip. It has a fever in it too." Pt seated in bedside chair. Pt says he has been performing AP all morning. Transfers SCALE: Activities may be completed with or without assistive devices. 2-Qmlnfcowdz-coarsml completes the activity by him/herself with no assistance from a helper. 5-Set-up or Clean-up Assistance-helper sets up or cleans up; patient completes activity. [place] assists only prior to or following the activity. 4-Supervision or Touching Assistance-helper provides verbal cues and/or touching/steadying and/or contact guard assistance as patient completes activity. Assistance may be provided throughout the activity or intermittently. 3-Partial/Moderate Assistance-helper does LESS THAN HALF the effort. [place] lifts, holds or supports trunk or limbs, but provides less than half the effort. 2-Substantial/Maximal Assistance-helper does MORE THAN HALF the effort. [place] lifts or holds trunk or limbs and provides more than half the effort. 8-Pzzagugma-vfhmjg does ALL the effort. Patient does none of the effort to complete the activity. Or, the assistance of 2 or more helpers is required for the patient to complete the activity. If activity was not attempted, code reason: 7-Patient Refused. 9-Not Applicable-not attempted and the patient did not perform the activity before the current illness, exacerbation or injury. 10-Not Attempted due to Environmental Limitations-(lack of equipment, weather restraints, etc.). 88-Not Attempted due to Medical Conditions or Safety Concerns. Weight Bearing Right Lower Extremity: Right Weight Bearing/Tolerated Left Lower Extremity: Left Full Weight Bearing Exercises Supine Ex: LE Protocol Supine Reps: 20 Seated Therapy Exercises: LE Protocol Seated Reps: 20 Treatments Pt transfers from chair, SBA. Pt amb with FWW and step to pattern x 30ft. Pt gait slow and steady. Assessment Current Status: Fair Progress Pt resting in chair with call light post therapy. Pt mami well. Slow, limited by (R) hip pain. Pt would benefit from continued therapy. PT Short Term Goals Short Term Goals Time Frame: Sep 01, 2019 Roll Left & Right: 4 Sit to lyin Lying to sitting on side of be: 4 Sit to stand: 3 Walk 10 feet: 3 PT Skilled Nursing Goals Rosin Barrel Filler Goals PT Skilled Nursing Goals Time Frame: Sep 15, 2019 Roll Left & Right (QC): 6 Sit to Lying (QC): 6 Lying-Sitting on Side/Bed(QC): 6 Sit to Stand (QC): 6 Chair/Bdf-my-Cyarq Xfer(QC): 6 Toilet Transfer (QC): 6 Car Transfer (QC): 4 Does the Patient Walk: No and Walking Goal IS indicated Walk 10 feet (QC): 5 Walk 50ft with 2 Turns (QC): 9 Walk 150 ft (QC): 9 Walking 10ft on Uneven Surface: 9 1 Step (curb) (QC): 9 4 Steps (QC): 9 12 Steps (QC): 9 Picking up an Object (QC): 9 Does the Pt use WC or Scooter?: Yes Wheel 50 feet with 2 turns (QC: 6 Type: Motorized Wheel 150 feet: 6 Type: Motorized PT Plan Treatment/Plan Treatment Plan: Continue Plan of Care Treatment Plan: Bed Mobility, Education, Functional Activity Yifan, Functional Strength, Group Therapy, Gait, Safety, Therapeutic Exercise, Transfers Treatment Duration: Sep 15, 2019 Frequency: At least 5 of 7 days/Wk (IRF) Estimated Hrs Per Day: 1.5 hours per day Patient and/or Family Agrees t: Yes Time/GCodes Time In: 940 Time Out: 1005 Total Billed Treatment Time: 25 Total Billed Treatment 1, ther ex 15', gait 10' BENJAMÍN BUNCH CPTA Aug 21, 2019 10:04 POS
--- NOTE | 2019-08-21 10:37 | NUR ---
dr Oro here to see pt
--- NOTE | 2019-08-21 11:04 | Progress Note - Cardiology ---
Cardiology SOAP Progress Note Subjective: No cp or palp or syncope or shortness of breath at rest Gen weakness and malaise No N/V Good appetite Objective: I&O/Vital Signs 08/20/19 08/21/19 23:07 06:13 Temp 36.2 Pulse 60 Resp 16 B/P (MAP) 105/64 (78) Pulse Ox 99 O2 Delivery Nasal Cannula Nasal Cannula O2 Flow Rate 3.00 3.00 08/21/19 00:00 Intake Total 1920 ml Output Total 1550 ml Balance 370 ml Constitutional: No apparent distress; other (drowsy, awakens easily, drifts back to sleep) Respiratory: No accessory muscle use, No respiratory distress; chest expansion is symmetric, chest is bilaterally symmetric, lungs clear to auscultation Cardiovascular: regular rate-rhythm; No JVD; S1 and S2 Gastrointestional: No tender; soft Extremities: other (mod RLE swelling) Neurologic/Psychiatric: other (moves extremities) Skin: No rash on exposed areas, No ulcerations on exposed areas Results/Procedures: Labs Laboratory Tests 08/20/19 15:26: Glucometer 126H 08/20/19 20:33: Glucometer 98 08/20/19 23:00: Glucometer 101 08/21/19 05:47: Glucometer 143H 08/21/19 06:08: Sodium Level 136, Potassium Level 3.6, Chloride Level 102, Carbon Dioxide Level 23, Anion Gap 11, Blood Urea Nitrogen 15, Creatinine 0.74, Estimat Glomerular Filtration Rate > 60, BUN/Creatinine Ratio 20, Glucose Level 112H, Calcium Level 8.5, Magnesium Level 1.6, Thyroid Stimulating Hormone (TSH) 1.31 Laboratory Tests 08/21/19 06:08 A/P: Assessment: Postural hypotension, likely related to meds and volume depletion, currently stable Hypokalemia due to diuretic therapy (on two diuretics: chlorthalidone and furosemide). Chlorthalidone d/c'd on 08/20/19 S/P R THR at [facility] in [place], [place] by Dr. Olivier Report [place] about [address] Dickens undertook a w/u and Mr Fitzgerald report he was told his CAD was inoperable H/O PPM implant in January [address] Medina at [facility] for symptomatic bradycardia Echo on 12/13/19: LVEF 45-50%, mild to mod AI, mod MAC, RVSP 25 mmHg Permanent A Fib TSH normal (1.31) on 08/21/19 OAC with Eliquis Chronic anemia DM HTN HLD Obesity Plan: * Continue to monitor lab * I spoke with him and and answered CV-related questions THERESE VOGEL MD FACP FAC CCDS Aug 21, 2019 11:04 POS
[2019-08-21] MEDS ORDERED: DICLOFENAC 1% GEL 100 GM (VOLTAREN) TUBE TOP PRN (12:30)
--- NOTE | 2019-08-21 12:47 | PM&R Progress Note ---
Subjective HPI/CC On Admission Date Seen by Provider: Aug 21, 2019 Time Seen by Provider: 12:20 Subjective/Events-last exam Blood sugars are much improved Hypoglycemia is no longer an issue Having bowel movements, last one 08/20/19 Voltaren gel and K-pad will be ordered for right thigh muscle pain SBP 120 so will DC IVF Reviewed meds and labs Conferred with RN Reviewed therapy notes Review of Systems General: Fatigue Musculoskeletal: leg pain Objective Exam Vital Signs Vital Signs Date Time Temp Pulse Resp B/P (MAP) Pulse Ox O2 Delivery O2 Flow Rate FiO2 08/21/19 17:52 36.4 66 18 100/64 (76) 97 Room Air 08/21/19 13:45 3.00 Capillary Refill : General Appearance: No Apparent Distress, WD/WN, Chronically ill, Obese HEENT: PERRL/EOMI, Normal ENT Inspection, Pharynx Normal Neck: Full Range of Motion, Normal Inspection, Non Tender, Supple, Carotid Bruit Respiratory: Chest Non Tender, Normal Breath Sounds, No Accessory Muscle Use, No Respiratory Distress, Decreased Breath Sounds Cardiovascular: Regular Rate, Rhythm, No Gallop, No JVD, No Murmur, Normal Peripheral Pulses Gastrointestinal: Normal Bowel Sounds, No Organomegaly, No Pulsatile Mass, Non Tender, Soft Back: Normal Inspection, No CVA Tenderness, No Vertebral Tenderness Extremity: Normal Capillary Refill, Normal Inspection, Normal Range of Motion, Non Tender, No Calf Tenderness, Pedal Edema Neurologic/Psychiatric: Alert, Oriented x3, No Motor/Sensory Deficits (decreased in legs), Normal Mood/Affect, road cutter II-XII Norm as Tested Skin: Normal Color, Warm/Dry Lymphatic: No Adenopathy Results/Procedures Lab Laboratory Tests 08/21/19 06:08 Patient resulted labs reviewed. FIM Transfers Therapy Code Descriptions/Definitions Functional [place] Measure: 0=Not Assessed/NA 4=Minimal Assistance 1=Total Assistance 5=Supervision or Setup 2=Maximal Assistance 6=Modified [place] 3=Moderate Assistance 7=Complete IndependenceSCALE: Activities may be completed with or without assistive devices. 6-Algbyemwrl-jwapfyj completes the activity by him/herself with no assistance from a helper. 5-Set-up or Clean-up Assistance-helper sets up or cleans up; patient completes activity. [place] assists only prior to or following the activity. 4-Supervision or Touching Assistance-helper provides verbal cues and/or touching/steadying and/or contact guard assistance as patient completes activity. Assistance may be provided throughout the activity or intermittently. 3-Partial/Moderate Assistance-helper does LESS THAN HALF the effort. [place] lifts, holds or supports trunk or limbs, but provides less than half the effort. 2-Substantial/Maximal Assistance-helper does MORE THAN HALF the effort. [place] lifts or holds trunk or limbs and provides more than half the effort. 7-Yzlkjxgqp-zwwijm does ALL the effort. Patient does none of the effort to complete the activity. Or, the assistance of 2 or more helpers is required for the patient to complete the activity. If activity was not attempted, code reason: 7-Patient Refused. 9-Not Applicable-not attempted and the patient did not perform the activity before the current illness, exacerbation or injury. 10-Not Attempted due to Environmental Limitations-(lack of equipment, weather restraints, etc.). 88-Not Attempted due to Medical Conditions or Safety Concerns. Roll Left to Right (QC): 4 Sit to Lying (QC): 3 Sit to Stand (QC): 4 (CGA) Chair/Osn-qs-Ogvua Xfer(QC): 3 Car Transfer (QC): 2 (max assist to complete. ) Gait Training Does the Patient Walk?: Yes Distance: 15 x2 Walk 10 feet (QC): 4 (CGA) Walk 50 ft with 2 Turns(QC): 88 Walk 150 ft (QC): 88 Walking 10ft/uneven surface-QC: 88 Gait Persons Needed: 1 Gait Assistive Device: FWW Wheelchair Training Does the Pt Use a Wheelchair?: Yes Wheel 50 ft with 2 turns (QC): 6 Wheel 150 ft (QC): 6 Type of Wheelchair: Motorized Stair Training 1 Step (curb) (QC): 88 4 Steps (QC): 88 12 Steps (QC): 88 Balance Picking up an Object (QC): 88 ADL-Treatment Eating (QC): 6 Oral Hygiene (QC): 3 (Pt sat EOB during task, OT set up at tray table. Pt able to open denture tablet, placing tablet and dentures into container. OT then as sisted with rinsing dentrues, pt scrubbed with toothpaste and tooth brush (required max encouragement), then OT rinsed dentures again. Pt then able to put dentures back into his mouth.) Shower/Bathe Self (QC): 7 Upper Body Dressing (QC): 7 Lower Body Dressing (QC): 4 (Min verbal cues in order to doff/don brief using portal architect. Pt stated "I can't do it, you are going to have to". Max encouragement required for pt to use portal architect to complete task.) On/Off Footwear (QC): 1 (Pt required total assist with task) Toileting Hygiene (QC): 4 (SBA for clothing management and hygiene, pt able to complete all parts.) Toilet Transfer (QC): 4 (CGA on/off BSC over toilet) Assessment/Plan Assessment and Plan Assess & Plan/Chief Complaint Assessment: Status post uncomplicated right hip replacement Atrial fibrillation CAD Alcoholism Hypertension Diabetes mellitus Hypoglycemic episode Debility chronic Anemia Hypokalemia Hypotension now resolved after IVF so will heplock Plan: Inpatient rehab protocol Monitor potassium Supplement potassium Appreciate cardiology Monitor blood sugar and blood pressure (1) Debility (2) CAD (coronary artery disease) (3) Diabetes mellitus (4) Pacemaker (5) Atrial fibrillation (6) IBS (irritable bowel syndrome) (7) KRAIG (obstructive sleep apnea) (8) Hypertension (9) Hyperlipemia (10) Depression (11) BPH (benign prostatic hyperplasia) (12) Status post right hip replacement OTLU PENA DO Aug 21, 2019 12:47 POS
[2019-08-21 17:52] VITALS: BP 100/64
[2019-08-21] MEDS: MELATONIN 3 MG TABLET PO PRN (20:59)
[2019-08-21] MEDS: GABAPENTIN 400 MG (NEURONTIN) CAP PO SCH (21:02)
[2019-08-22] MEDS: HYDROcodone/APAP 7.5 MG/325 MG (LORTAB, LORCET PLUS) TABLET PO PRN ×5 (01:26→21:34)
[2019-08-22] MEDS: KCL 10 MEQ TAB (MICRO K) PO SCH ×2 (05:45→17:27)
[2019-08-22] MEDS: inSUlin ASPART (NovoLOG) 1 UNIT/0.01 ML (CHARGE PER UNIT) SC SCH ×4 (05:45→21:39)
[2019-08-22] MEDS: metFORMIN 500 MG (GLUCOPHAGE) TAB PO SCH ×2 (05:45→17:27)
[2019-08-22] MEDS: FERROUS SULF 325 MG (IRON) TAB PO SCH ×2 (05:45→17:27)
[2019-08-22 06:05] VITALS: BP 98/57
[2019-08-22 06:31] LABS: BUN/CREATININE RATIO 17; CALCIUM 8.7 MG/DL (8.5-10.1); CARBON DIOXIDE 24 MMOL/L (21-32); CHLORIDE 99 MMOL/L (98-107); CREATININE SERUM 0.75 MG/DL (0.60-1.30); GFR ESTIMATED > 60; GLUCOSE 121 MG/DL (70-105); MAGNESIUM 1.5 MG/DL (1.6-2.4); POTASSIUM 3.7 MMOL/L (3.6-5.0); SODIUM 135 MMOL/L (135-145)
[2019-08-22] MEDS: GABAPENTIN 300 MG (NEURONTIN) CAP PO SCH ×2 (07:50→12:16)
[2019-08-22] MEDS: IBUPROFEN 600 MG (MOTRIN) TAB PO SCH ×3 (07:51→21:31)
[2019-08-22] MEDS: FUROSEMIDE 40 MG (LASIX) TAB PO SCH (07:51)
[2019-08-22] MEDS: APIXABAN 5 MG (ELIQUIS) TABLET PO SCH ×2 (07:52→21:32)
[2019-08-22] MEDS: FINASTERIDE (PROSCAR) 5 MG TAB PO SCH (07:52)
[2019-08-22] MEDS: SENNA W/DOCUSATE (SENOKOT S) TABLET PO SCH ×2 (07:52→21:37)
[2019-08-22] MEDS: SPIRONOLACTONE 25 MG (ALDACTONE) TAB PO SCH (07:53)
[2019-08-22] MEDS: DIGOXIN 0.25 MG (LANOXIN) TAB PO SCH (07:56)
[2019-08-22] MEDS: EMPAGLIFLOZIN 25 MG TAB PO SCH (07:56)
[2019-08-22] MEDS: DILTIAZEM 180 MG (CARDIZEM CD) CAP PO SCH (07:57)
[2019-08-22] MEDS: CYANOCOBALAMIN 1,000 MCG (VITAMIN B-12) TABLET PO SCH (07:57)
[2019-08-22] MEDS: DOCUSATE SODIUM 100 MG (COLACE) CAP PO SCH (07:57)
[2019-08-22] MEDS: POLYETHYLENE GLYCOL 17 GM (MIRALAX) PACK PO SCH ×2 (08:00→21:39)
[2019-08-22 08:16] VITALS: BP 105/54
[2019-08-22] MEDS: meTOprolol TARTRATE 50 MG (LOPRESSOR) TAB PO SCH ×2 (09:00→21:34)
--- NOTE | 2019-08-22 11:30 | PM&R Progress Note ---
Subjective HPI/CC On Admission Date Seen by Provider: Aug 22, 2019 Time Seen by Provider: 11:30 Subjective/Events-last exam Blood sugars are much improved while limiting insulin Hypoglycemia is no longer an issue but will monitor closely Having bowel movements, last one 08/21/19 Voltaren gel and K-pad are helping with the right thigh muscle pain SBP 105 Reviewed meds and labs Conferred with RN Reviewed therapy notes Review of Systems General: Fatigue Musculoskeletal: back pain, leg pain Objective Exam Vital Signs Vital Signs Date Time Temp Pulse Resp B/P (MAP) Pulse Ox O2 Delivery O2 Flow Rate FiO2 08/22/19 18:00 36.3 63 20 107/66 (80) 97 Room Air 08/22/19 08:10 2.00 Capillary Refill : General Appearance: No Apparent Distress, WD/WN, Chronically ill, Obese HEENT: PERRL/EOMI, Normal ENT Inspection, Pharynx Normal Neck: Full Range of Motion, Normal Inspection, Non Tender, Supple, Carotid Bruit Respiratory: Chest Non Tender, Normal Breath Sounds, No Accessory Muscle Use, No Respiratory Distress, Decreased Breath Sounds Cardiovascular: Regular Rate, Rhythm, No Gallop, No JVD, No Murmur, Normal Peripheral Pulses Gastrointestinal: Normal Bowel Sounds, No Organomegaly, No Pulsatile Mass, Non Tender, Soft Back: Normal Inspection, No CVA Tenderness, No Vertebral Tenderness Extremity: Normal Capillary Refill, Normal Inspection, Normal Range of Motion, Non Tender, No Calf Tenderness, Pedal Edema Neurologic/Psychiatric: Alert, Oriented x3, No Motor/Sensory Deficits (d ecreased in legs), Normal Mood/Affect, 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 FIM Transfers Therapy Code Descriptions/Definitions Functional [place] Measure: 0=Not Assessed/NA 4=Minimal Assistance 1=Total Assistance 5=Supervision or Setup 2=Maximal Assistance 6=Modified [place] 3=Moderate Assistance 7=Complete IndependenceSCALE: Activities may be completed with or without assistive devices. 8-Bbawknufef-ojdugor completes the activity by him/herself with no assistance from a helper. 5-Set-up or Clean-up Assistance-helper sets up or cleans up; patient completes activity. [place] assists only prior to or following the activity. 4-Supervision or Touching Assistance-helper provides verbal cues and/or touching/steadying and/or contact guard assistance as patient completes activity. Assistance may be provided throughout the activity or intermittently. 3-Partial/Moderate Assistance-helper does LESS THAN HALF the effort. [place] lifts, holds or supports trunk or limbs, but provides less than half the effort. 2-Substantial/Maximal Assistance-helper does MORE THAN HALF the effort. [place] lifts or holds trunk or limbs and provides more than half the effort. 2-Gnbpczxuc-jagfea does ALL the effort. Patient does none of the effort to complete the activity. Or, the assistance of 2 or more helpers is required for the patient to complete the activity. If activity was not attempted, code reason: 7-Patient Refused. 9-Not Applicable-not attempted and the patient did not perform the activity before the current illness, exacerbation or injury. 10-Not Attempted due to Environmental Limitations-(lack of equipment, weather restraints, etc.). 88-Not Attempted due to Medical Conditions or Safety Concerns. Roll Left to Right (QC): 4 Sit to Lying (QC): 3 Sit to Stand (QC): 4 (CGA) Chair/Vis-ef-Ddxwv Xfer(QC): 3 Car Transfer (QC): 2 (max assist to complete. ) Gait Training Does the Patient Walk?: Yes Distance: 15 x2 Walk 10 feet (QC): 4 (CGA) Walk 50 ft with 2 Turns(QC): 88 Walk 150 ft (QC): 88 Walking 10ft/uneven surface-QC: 88 Gait Persons Needed: 1 Gait Assistive Device: FWW Wheelchair Training Does the Pt Use a Wheelchair?: Yes Wheel 50 ft with 2 turns (QC): 6 Wheel 150 ft (QC): 6 Type of Wheelchair: Motorized Stair Training 1 Step (curb) (QC): 88 4 Steps (QC): 88 12 Steps (QC): 88 Balance Picking up an Object (QC): 88 ADL-Treatment Eating (QC): 6 Oral Hygiene (QC): 3 (Pt sat EOB during task, OT set up at tray table. Pt able to open denture tablet, placing tablet and dentures into container. OT then assisted with rinsing dentrues, pt scrubbed with toothpaste and tooth brush (required max encouragement), then OT rinsed dentures again. Pt then able to put dentures back into his mouth.) Shower/Bathe Self (QC): 7 Upper Body Dressing (QC): 7 Lower Body Dressing (QC): 4 (Min verbal cues in order to doff/don brief using jack of all trades. Pt stated "I can't do it, you are going to have to". Max encouragement required for pt to use jack of all trades to complete task.) On/Off Footwear (QC): 1 (Pt required total assist with task) Toileting Hygiene (QC): 4 (SBA for clothing management and hygiene, pt able to complete all parts.) Toilet Transfer (QC): 4 (CGA on/off BSC over toilet) Assessment/Plan Assessment and Plan Assess & Plan/Chief Complaint Assessment: Status post uncomplicated right hip replacement Atrial fibrillation CAD Alcoholism Hypertension Diabetes mellitus Hypoglycemic episode Debility chronic Anemia Hypokalemia Hypotension now resolved after IVF so will heplock Plan: Inpatient rehab protocol Monitor potassium Supplement potassium Appreciate cardiology Monitor blood sugar and blood pressure (1) Debility (2) CAD (coronary artery disease) (3) Diabetes mellitus (4) Pacemaker (5) Atrial fibrillation (6) IBS (irritable bowel syndrome) (7) KRAIG (obstructive sleep apnea) (8) Hypertension (9) Hyperlipemia (10) Depression (11) BPH (benign prostatic hyperplasia) (12) Status post right hip replacement TOLU PENA DO Aug 22, 2019 11:30 POS
[2019-08-22 18:00] VITALS: BP 107/66
[2019-08-22] MEDS: GABAPENTIN 400 MG (NEURONTIN) CAP PO SCH (21:31)
[2019-08-22] MEDS: MELATONIN 3 MG TABLET PO PRN (21:32)
[2019-08-23] MEDS: HYDROcodone/APAP 7.5 MG/325 MG (LORTAB, LORCET PLUS) TABLET PO PRN ×2 (01:34→06:08)
[2019-08-23] MEDS: metFORMIN 500 MG (GLUCOPHAGE) TAB PO SCH ×2 (06:07→17:39)
[2019-08-23] MEDS: KCL 10 MEQ TAB (MICRO K) PO SCH ×2 (06:08→17:39)
[2019-08-23] MEDS: FERROUS SULF 325 MG (IRON) TAB PO SCH ×2 (06:09→17:38)
[2019-08-23] MEDS: inSUlin ASPART (NovoLOG) 1 UNIT/0.01 ML (CHARGE PER UNIT) SC SCH ×4 (06:24→20:53)
[2019-08-23 06:47] VITALS: BP 95/58
[2019-08-23 06:58] LABS: BASOPHILS % (AUTO) 1 % (0-10); EOSINOPHILS # (AUTO) 0.2 10^3/uL (0.0-0.3); EOSINOPHILS % (AUTO) 4 % (0-10); HEMATOCRIT 31 % (40-54); HEMOGLOBIN 10.7 G/DL (13.3-17.7); LYMPHOCYTES # (AUTO) 1.4 X 10^3 (1.0-4.0); LYMPHOCYTES % (AUTO) 23 % (12-44); MEAN CORPUSCULAR HEMOGLOBIN 33 PG (25-34); MEAN CORPUSCULAR HGB CONC 34 G/DL (32-36); MEAN CORPUSCULAR VOLUME 96 FL (80-99); MEAN PLATELET VOLUME 8.4 FL (7.4-10.4); MONOCYTES # (AUTO) 0.8 X 10^3 (0.0-1.0); MONOCYTES % (AUTO) 13 % (0-12); NEUTROPHILS # (AUTO) 3.8 X 10^3 (1.8-7.8); NEUTROPHILS % (AUTO) 61 % (42-75); PLATELET COUNT 286 10^3/uL (130-400); RED CELL DISTRIBUTION WIDTH 12.9 % (10.0-14.5); WHITE BLOOD COUNT 6.3 10^3/uL (4.3-11.0)
[2019-08-23 07:23] LABS: ALANINE AMINOTRANSFERASE 67 U/L (0-55); ALKALINE PHOSPHATASE 254 U/L (40-136); BILIRUBIN,TOTAL 2.1 MG/DL (0.1-1.0); BUN/CREATININE RATIO 15; CALCIUM 8.8 MG/DL (8.5-10.1); CARBON DIOXIDE 28 MMOL/L (21-32); CHLORIDE 96 MMOL/L (98-107); CREATININE SERUM 0.79 MG/DL (0.60-1.30); GFR ESTIMATED > 60; GLUCOSE 100 MG/DL (70-105); POTASSIUM 3.8 MMOL/L (3.6-5.0); SODIUM 133 MMOL/L (135-145); TOTAL PROTEIN 5.5 GM/DL (6.4-8.2)
--- NOTE | 2019-08-23 08:26 | PM&R Progress Note ---
Subjective HPI/CC On Admission Date Seen by Provider: Aug 23, 2019 Time Seen by Provider: 08:30 Subjective/Events-last exam Elevated liver enzymes noted He already has had his gallbladder removed Alcoholism is probably the problem too Will switch off Tylenol products, DC the Hydrocodone and initiate Oxycodone si nce we can do that without Tylenol Bowels moved yesterday Alcohol cessation discussed Had a controlled fall without injury in the bathroom Reviewed meds and labs Conferred with RN Reviewed therapy notes Review of Systems General: Fatigue Musculoskeletal: back pain, leg pain Objective Exam Vital Signs Vital Signs Date Time Temp Pulse Resp B/P (MAP) Pulse Ox O2 Delivery O2 Flow Rate FiO2 08/23/19 21:00 103/66 (78) 78 08/23/19 20:30 Nasal Cannula 2.00 08/23/19 06:47 35.8 61 18 Capillary Refill : General Appearance: No Apparent Distress, WD/WN, Chronically ill, Obese HEENT: PERRL/EOMI, Normal ENT Inspection, Pharynx Normal Neck: Full Range of Motion, Normal Inspection, Non Tender, Supple, Carotid Bruit Respiratory: Chest Non Tender, Normal Breath Sounds, No Accessory Muscle Use, No Respiratory Distress, Decreased Breath Sounds Cardiovascular: Regular Rate, Rhythm, No Gallop, No JVD, No Murmur, Normal Peripheral Pulses Gastrointestinal: Normal Bowel Sounds, No Organomegaly, No Pulsatile Mass, Non Tender, Soft Back: Normal Inspection, No CVA Tenderness, No Vertebral Tenderness Extremity: Normal Capillary Refill, Normal Inspection, Normal Range of Motion, Non Tender, No Calf Tenderness, Pedal Edema Neurologic/Psychiatric: Alert, Oriented x3, No Motor/Sensory Deficits (decreased in legs), Normal 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 FIM Transfers Therapy Code Descriptions/Definitions Functional [place] Measure: 0=Not Assessed/NA 4=Minimal Assistance 1=Total Assistance 5=Supervision or Setup 2=Maximal Assistance 6=Modified [place] 3=Moderate Assistance 7=Complete IndependenceSCALE: Activities may be completed with or without assistive devices. 1-Kqdykcahyk-jgmzhfa completes the activity by him/herself with no assistance from a helper. 5-Set-up or Clean-up Assistance-helper sets up or cleans up; patient completes activity. [place] assists only prior to or following the activity. 4-Supervision or Touching Assistance-helper provides verbal cues and/or touching/steadying and/or contact guard assistance as patient completes activity. Assistance may be provided throughout the activity or intermittently. 3-Partial/Moderate Assistance-helper does LESS THAN HALF the effort. [place] lifts, holds or supports trunk or limbs, but provides less than half the effort. 2-Substantial/Maximal Assistance-helper does MORE THAN HALF the effort. [place] lifts or holds trunk or limbs and provides more than half the effort. 5-Waoqprtby-ztprpp does ALL the effort. Patient does none of the effort to complete the activity. Or, the assistance of 2 or more helpers is required for the patient to complete the activity. If activity was not attempted, code reason: 7-Patient Refused. 9-Not Applicable-not attempted and the patient did not perform the activity before the current illness, exacerbation or injury. 10-Not Attempted due to Environmental Limitations-(lack of equipment, weather restraints, etc.). 88-Not Attempted due to Medical Conditions or Safety Concerns. Roll Left to Right (QC): 4 Sit to Lying (QC): 3 Sit to Stand (QC): 4 (CGA) Chair/Itx-jw-Xflyl Xfer(QC): 3 Car Transfer (QC): 2 (max assist to complete. ) Gait Training Does the Patient Walk?: Yes Distance: 15 x2 Walk 10 feet (QC): 4 (CGA) Walk 50 ft with 2 Turns(QC): 88 Walk 150 ft (QC): 88 Walking 10ft/uneven surface-QC: 88 Gait Persons Needed: 1 Gait Assistive Device: FWW Wheelchair Training Does the Pt Use a Wheelchair?: Yes Wheel 50 ft with 2 turns (QC): 6 Wheel 150 ft (QC): 6 Type of Wheelchair: Motorized Stair Training 1 Step (curb) (QC): 88 4 Steps (QC): 88 12 Steps (QC): 88 Balance Picking up an Object (QC): 88 ADL-Treatment Eating (QC): 6 Oral Hygiene (QC): 3 (Pt sat EOB during task, OT set up at tray table. Pt able to open denture tablet, placing tablet and dentures into container. OT then assisted with rinsing dentrues, pt scrubbed with toothpaste and tooth brush (required max encouragement), then OT rinsed dentures again. Pt then able to put dentures back into his mouth.) Shower/Bathe Self (QC): 7 Upper Body Dressing (QC): 7 Lower Body Dressing (QC): 4 (Min verbal cues in order to doff/don brief using development coach. Pt stated "I can't do it, you are going to have to". Max encouragement required for pt to use development coach to complete task.) On/Off Footwear (QC): 1 (Pt required total assist with task) Toileting Hygiene (QC): 4 (SBA for clothing management and hygiene, pt able to complete all parts.) Toilet Transfer (QC): 4 (CGA on/off BSC over toilet) Assessment/Plan Assessment and Plan Assess & Plan/Chief Complaint Assessment: Status post uncomplicated right hip replacement Atrial fibrillation CAD Alcoholism Hypertension Diabetes mellitus Hypoglycemic episode Debility chronic Anemia Hypokalemia Hypotension now resolved after IVF so will heplock s/p non-injury fall Plan: Inpatient rehab protocol Monitor potassium Supplement potassium Appreciate cardiology Monitor blood sugar and blood pressure Fall risk (1) Debility (2) CAD (coronary artery disease) (3) Diabetes mellitus (4) Pacemaker (5) Atrial fibrillation (6) IBS (irritable bowel syndrome) (7) KRAIG (obstructive sleep apnea) (8) Hypertension (9) Hyperlipemia (10) Depression (11) BPH (benign prostatic hyperplasia) (12) Status post right hip replacement TOLU PENA DO Aug 23, 2019 08:26 POS
[2019-08-23] MEDS: EMPAGLIFLOZIN 25 MG TAB PO SCH (09:20)
[2019-08-23] MEDS: APIXABAN 5 MG (ELIQUIS) TABLET PO SCH ×2 (09:20→21:03)
[2019-08-23] MEDS: GABAPENTIN 300 MG (NEURONTIN) CAP PO SCH ×2 (09:21→13:25)
[2019-08-23] MEDS: CYANOCOBALAMIN 1,000 MCG (VITAMIN B-12) TABLET PO SCH (09:21)
[2019-08-23] MEDS: SPIRONOLACTONE 25 MG (ALDACTONE) TAB PO SCH (09:21)
[2019-08-23] MEDS: DILTIAZEM 180 MG (CARDIZEM CD) CAP PO SCH (09:22)
[2019-08-23] MEDS: DIGOXIN 0.25 MG (LANOXIN) TAB PO SCH (09:23)
[2019-08-23] MEDS: FUROSEMIDE 40 MG (LASIX) TAB PO SCH (09:23)
[2019-08-23] MEDS: SENNA W/DOCUSATE (SENOKOT S) TABLET PO SCH ×2 (09:23→21:03)
[2019-08-23] MEDS: FINASTERIDE (PROSCAR) 5 MG TAB PO SCH (09:23)
[2019-08-23] MEDS: POLYETHYLENE GLYCOL 17 GM (MIRALAX) PACK PO SCH ×2 (09:24→21:04)
[2019-08-23] MEDS: meTOprolol TARTRATE 50 MG (LOPRESSOR) TAB PO SCH ×2 (09:24→21:05)
[2019-08-23] MEDS: DOCUSATE SODIUM 100 MG (COLACE) CAP PO SCH (09:24)
[2019-08-23] MEDS: IBUPROFEN 600 MG (MOTRIN) TAB PO SCH ×3 (09:24→21:03)
--- NOTE | 2019-08-23 09:26 | Physical Therapy Daily Note ---
PT Daily Note-Current Subjective Patient in bed pre tx, agrees to PT, has unrated pain but would like pain meds if he can have them, nurse notified. Patient needs dressed upper and lower, does upper with independence, lower with max assist. Appearance Patient in recliner post tx with legs elevated, has nurse call, phone, tray, all needs met. Mental Status Patient Orientation: Person, Place, Situation Transfers SCALE: Activities may be completed with or without assistive devices. 6-Rxdgkubaow-icanqai completes the activity by him/herself with no assistance from a helper. 5-Set-up or Clean-up Assistance-helper sets up or cleans up; patient completes activity. [place] assists only prior to or following the activity. 4-Supervision or Touching Assistance-helper provides verbal cues and/or touching/steadying and/or contact guard assistance as patient completes activity. Assistance may be provided throughout the activity or intermittently. 3-Partial/Moderate Assistance-helper does LESS THAN HALF the effort. [place] lifts, holds or supports trunk or limbs, but provides less than half the effort. 2-Substantial/Maximal Assistance-helper does MORE THAN HALF the effort. [place] lifts or holds trunk or limbs and provides more than half the effort. 3-Ftnkizfza-ecoljb does ALL the effort. Patient does none of the effort to complete the activity. Or, the assistance of 2 or more helpers is required for the patient to complete the activity. If activity was not attempted, code reason: 7-Patient Refused. 9-Not Applicable-not attempted and the patient did not perform the activity before the current illness, exacerbation or injury. 10-Not Attempted due to Environmental Limitations-(lack of equipment, weather restraints, etc.). 88-Not Attempted due to Medical Conditions or Safety Concerns. Roll Left & Right (QC): 3 Lying to Sitting/Side of Bed(Q: 3 Sit to Stand (QC): 4 Chair/Gfp-sx-Duaby Xfer(QC): 4 Toilet Transfer (QC): 4 MIn assist for bed mobility and supine to sit, close SBA for sit to stand and transfers, patient toileted once for a BM SBA. Weight Bearing Right Lower Extremity: Right Weight Bearing/Tolerated Left Lower Extremity: Left Full Weight Bearing Gait Training Distance: 15', 40'x2 Walk 10 feet (QC): 4 Gait Assistive Device: FWW slow, antalgic, but steady, has trouble advancing his right foot and has no foot clearance, slides it across the floor. Exercises Seated Therapy Exercises: Ankle pumps, Long arc quads, Hip abd/add Seated Reps: 20 Treatments bed mobility and transfers, ambulation, LE exercise, toileting, dressing. Assessment Current Status: Fair Progress improving ambulation but needs min assist still for supine to sit PT Short Term Goals Short Term Goals Time Frame: Sep 01, 2019 Roll Left & Right: 4 Sit to lyin Lying to sitting on side of be: 4 Sit to stand: 3 Walk 10 feet: 3 PT Skilled Nursing Goals Skilled Nursing Goals PT Skilled Nursing Goals Time Frame: Sep 15, 2019 Roll Left & Right (QC): 6 Sit to Lying (QC): 6 Lying-Sitting on Side/Bed(QC): 6 Sit to Stand (QC): 6 Chair/Zzr-ga-Bhisg Xfer(QC): 6 Toilet Transfer (QC): 6 Car Transfer (QC): 4 Does the Patient Walk: No and Walking Goal IS indicated Walk 10 feet (QC): 5 Walk 50ft with 2 Turns (QC): 9 Walk 150 ft (QC): 9 Walking 10ft on Uneven Surface: 9 1 Step (curb) (QC): 9 4 Steps (QC): 9 12 Steps (QC): 9 Picking up an Object (QC): 9 Does the Pt use WC or Scooter?: Yes Wheel 50 feet with 2 turns (QC: 6 Type: Motorized Wheel 150 feet: 6 Type: Motorized PT Plan Problem List Problem List: Activity Tolerance, Functional Strength, Safety, Balance, Gait, Transfer, Bed Mobility, ROM Treatment/Plan Treatment Plan: Continue Plan of Care Treatment Plan: Bed Mobility, Education, Functional Activity Yifan, Functional Strength, Group Therapy, Gait, Safety, Therapeutic Exercise, Transfers Treatment Duration: Sep 15, 2019 Frequency: At least 5 of 7 days/Wk (IRF) Estimated Hrs Per Day: 1.5 hours per day Patient and/or Family Agrees t: Yes Safety Risks/Education Patient Education: Gait Training, Transfer Techniques, Correct Positioning, Safety Issues Teaching Recipient: Patient Teaching Methods: Demonstration, Discussion Response to Teaching: Reinforcement Needed Time/GCodes Time In: 0845 Time Out: 929 Total Billed Treatment Time: 45 Total Billed Treatment 1 visit EX 10' GT 20' FA 15' KRTEK,CAMPOS PT Aug 23, 2019 09:26 POS
--- NOTE | 2019-08-23 12:06 | Occupational Ther Daily Note ---
OT Current Status-Daily Note Subjective Pt alert, sitting in recliner. Pt agrees to therapy. No c/o pain only fatigue. Mental Status/Objective Patient Orientation: Person, Place, Time, Situation Attachments: IV ADL-Treatment Pt agrees to shower. Pt ambulated to bathroom with CGA using FWW. Supervision for toilet transfer. Pt completed toileting with supervision using FWW and grabbars. Pt transferred to shower with SBA. Completed shower with SBA using shower bench, grabbar and hand held shower. Pt declined donning any clothes at this time only hospital gown. After therapy, pt sitting in recliner with call light/phone in reach. All needs met in room. Therapy Code Descriptions/Definitions Functional [place] Measure: 0=Not Assessed/NA 4=Minimal Assistance 1=Total Assistance 5=Supervision or Setup 2=Maximal Assistance 6=Modified [place] 3=Moderate Assistance 7=Complete IndependenceSCALE: Activities may be completed with or without assistive devices. 7-Lujvmtnkhx-anrmlkw completes the activity by him/herself with no assistance from a helper. 5-Set-up or Clean-up Assistance-helper sets up or cleans up; patient completes activity. [place] assists only prior to or following the activity. 4-Supervision or Touching Assistance-helper provides verbal cues and/or touching/steadying and/or contact guard assistance as patient completes activity. Assistance may be provided throughout the activity or intermittently. 3-Partial/Moderate Assistance-helper does LESS THAN HALF the effort. [place] lifts, holds or supports trunk or limbs, but provides less than half the effort. 2-Substantial/Maximal Assistance-helper does MORE THAN HALF the effort. [place] lifts or holds trunk or limbs and provides more than half the effort. 6-Phuhwdptp-vlmxha does ALL the effort. Patient does none of the effort to c omplete the activity. Or, the assistance of 2 or more helpers is required for the patient to complete the activity. If activity was not attempted, code reason: 7-Patient Refused. 9-Not Applicable-not attempted and the patient did not perform the activity before the current illness, exacerbation or injury. 10-Not Attempted due to Environmental Limitations-(lack of equipment, weather restraints, etc.). 88-Not Attempted due to Medical Conditions or Safety Concerns. Shower/Bathe Self (QC): 4 Upper Body Dressing (QC): 7 Lower Body Dressing (QC): 7 Toileting Hygiene (QC): 4 Toilet Transfer (QC): 4 Other Treatment As pt was transferring out of the shower, pt had controlled fall. Towel had been placed on floor to catch spray from shower, chair place at 90* from shower bench and FWW placed between. Pt was transferring out of shower and reached for chair instead of FWW to stabilize self. As pt placed wt on chair arm and stepped, chair slid slightly and pt lost balance and was controlled to sit on floor. Scrape on back of L upper arm and bruise on R side of upper torso noted. Nrsg assisted with transferring pt in chair and assessed pt. OT Short Term Goals Short Term Goals Time Frame: Aug 27, 2019 OT Tube Dispatcher Goals Tube Dispatcher Goals Time Frame: Sep 03, 2019 Eating (QC): 6 Oral Hygiene (QC): 6 Toileting Hygiene (QC): 6 Shower/Bathe Self (QC): 6 Upper Body Dressing (QC): 6 Lower Body Dressing (QC): 6 On/Off Footwear (QC): 6 Additional Goals: 1-Demonstrate ADL Tasks, 2-Verbalize Understanding, 3-Impr oveStrength/Yifan 1=Demonstrate adherence to instructed precautions during ADL tasks. 2=Patient will verbalize/demonstrate understanding of assistive devices/modifications for ADL. 3=Patient will improve strength/tolerance for activity to enable patient to perform ADL's. OT Education/Plan Problem List/Assessment Assessment: Decreased Activ Tolerance, Impaired Self-Care Skills Discharge Recommendations Plan/Recommendations: Continue POC Treatment Plan/Plan of Care Patient would benefit from OT for education, treatment and training to promote independence in ADL's, mobility, safety and/or upper extremity function for ADL's. Plan of Care: ADL Retraining, Caregiver Training, Functional Mobility, Group Exercise/Act as Ind, UE Funct Exercise/Act Treatment Duration: Sep 03, 2019 Frequency: At least 5 of 7 days/Wk (IRF) Estimated Hrs Per Day: 1.5 hours per day Agreement: Yes Rehab Potential: Good Time/GCodes Start Time: 11:00 Stop Time: 12:00 Total Time Billed (hr/min): 60 Billed Treatment Time 1 visit-ADL 4 (60 min) ELEAZAR ESCOBEDO Aug 23, 2019 12:06 POS
--- NOTE | 2019-08-23 12:42 | Occupational Ther Daily Note ---
OT Current Status-Daily Note Subjective Pt alert, sitting in recliner. Pt agrees to therapy. Rated pain, 9/10. Mental Status/Objective Patient Orientation: Person, Place, Time, Situation Attachments: IV ADL-Treatment Therapy Code Descriptions/Definitions Functional [place] Measure: 0=Not Assessed/NA 4=Minimal Assistance 1=Total Assistance 5=Supervision or Setup 2=Maximal Assistance 6=Modified [place] 3=Moderate Assistance 7=Complete IndependenceSCALE: Activities may be completed with or without assistive devices. 5-Leospdtdck-emgcfwq completes the activity by him/herself with no assistance from a helper. 5-Set-up or Clean-up Assistance-helper sets up or cleans up; patient completes activity. [place] assists only prior to or following the activity. 4-Supervision or Touching Assistance-helper provides verbal cues and/or touching/steadying and/or contact guard assistance as patient completes activity. Assistance may be provided throughout the activity or intermittently. 3-Partial/Moderate Assistance-helper does LESS THAN HALF the effort. [place] lifts, holds or supports trunk or limbs, but provides less than half the effort. 2-Substantial/Maximal Assistance-helper does MORE THAN HALF the effort. [place] lifts or holds trunk or limbs and provides more than half the effort. 8-Twmhsmywx-vffkyh does ALL the effort. Patient does none of the effort to complete the activity. Or, the assistance of 2 or more helpers is required for the patient to complete the activity. If activity was not attempted, code reason: 7-Patient Refused. 9-Not Applicable-not attempted and the patient did not perform the activity before the current illness, exacerbation or injury. 10-Not Attempted due to Environmental Limitations-(lack of equipment, weather restraints, etc.). 88-Not Attempted due to Medical Conditions or Safety Concerns. Eating (QC): 6 Toileting Hygiene (QC): 4 (Supervision using FWW and grabbars.) Toilet Transfer (QC): 4 (Supervision using FWW and grabbars.) After session, pt lying in bed with call light/phone in reach. All needs met in room. OT Short Term Goals Short Term Goals Time Frame: Aug 27, 2019 OT Civilian Technician Goals [facility] Goals Time Frame: Sep 03, 2019 Eating (QC): 6 Oral Hygiene (QC): 6 Toileting Hygiene (QC): 6 Shower/Bathe Self (QC): 6 Upper Body Dressing (QC): 6 Lower Body Dressing (QC): 6 On/Off Footwear (QC): 6 Additional Goals: 1-Demonstrate ADL Tasks, 2-Verbalize Understanding, 3- ImproveStrength/Yifan 1=Demonstrate adherence to instructed precautions during ADL tasks. 2=Patient will verbalize/demonstrate understanding of assistive devices/modifications for ADL. 3=Patient will improve strength/tolerance for activity to enable patient to perform ADL's. OT Education/Plan Problem List/Assessment Assessment: Decreased Activ Tolerance, Decreased UE Strength, Impaired Coordination, Impaired Funct Balance, Impaired Self-Care Skills Discharge Recommendations Plan/Recommendations: Continue POC Treatment Plan/Plan of Care Patient would benefit from OT for education, treatment and training to promote independence in ADL's, mobility, safety and/or upper extremity function for ADL's. Plan of Care: ADL Retraining, Caregiver Training, Functional Mobility, Group Exercise/Act as Ind, UE Funct Exercise/Act Treatment Duration: Sep 03, 2019 Frequency: At least 5 of 7 days/Wk (IRF) Estimated Hrs Per Day: 1.5 hours per day Agreement: Yes Rehab Potential: Good Time/GCodes Start Time: 12:30 Stop Time: 13:00 Total Time Billed (hr/min): 30 Billed Treatment Time 1 visit-FA 2 (30 min) ELEAZAR ESCOBEDO Aug 23, 2019 12:42 POS
[2019-08-23] MEDS: MAGNESIUM 1 GM/100 ML IVPB 100 ML IV SCH ×2 (13:26→14:34)
--- NOTE | 2019-08-23 14:10 | NUR ---
Reviewed EMR and overall participation/progress with therapies. Will encourage patient about his original goals to be able to use motorized wheelchair less and maximize independence.
--- NOTE | 2019-08-23 14:33 | Progress Note - Cardiology ---
Cardiology SOAP Progress Note Subjective: No cp or palp or syncope or shortness of breath Still has dizziness with posture changes Denies palp or syncope Has gen weakness Objective: I&O/Vital Signs 08/23/19 08/23/19 06:47 08:15 Temp 35.8 Pulse 61 Resp 18 B/P (MAP) 95/58 (70) Pulse Ox 96 O2 Delivery Room Air Room Air 08/23/19 00:00 Intake Total 1360 ml Output Total 1175 ml Balance 185 ml Constitutional: No apparent distress; other (drowsy, awakens easily, drifts back to sleep) Respiratory: No accessory muscle use, No respiratory distress; chest expansion is symmetric, chest is bilaterally symmetric, lungs clear to auscultation Cardiovascular: regular rate-rhythm; No JVD; S1 and S2 Gastrointestional: No tender; soft Extremities: other (mod RLE swelling) Neurologic/Psychiatric: other (moves extremities) Skin: No rash on exposed areas, No ulcerations on exposed areas Results/Procedures: Labs Laboratory Tests 08/22/19 16:04: Glucometer 117H 08/22/19 21:00: Glucometer 142H 08/23/19 05:29: Glucometer 122H 08/23/19 05:40: Sodium Level 133L, Potassium Level 3.8, Chloride Level 96L, Carbon Dioxide Level 28, Anion Gap 9, Blood Urea Nitrogen 12, Creatinine 0.79, Estimat Glomerular Filtration Rate > 60, BUN/Creatinine Ratio 15, Glucose Level 100, Calcium Level 8.8, Corrected Calcium 9.6, Total Bilirubin 2.1H, Aspartate Amino Transf (AST/SGOT) 87H, Alanine Aminotransferase (ALT/SGPT) 67H, Alkaline Phosphatase 254H, Total Protein 5.5L, Albumin 3.0L 08/23/19 06:40: White Blood Count 6.3, Red Blood Count 3.26L, Hemoglobin 10.7L, Hematocrit 31L, Mean Corpuscular Volume 96, Mean Corpuscular Hemoglobin 33, Mean Corpuscular Hemoglobin Concent 34, Red Cell Distribution Width 12.9, Platelet Count 286, Mean Platelet Volume 8.4, Neutrophils (%) (Auto) 61, Lymphocytes (%) (Auto) 23, Monocytes (%) (Auto) 13H, Eosinophils (%) (Auto) 4, Basophils (%) (Auto) 1, Neutrophils # (Auto) 3.8, Lymphocytes # (Auto) 1.4, Monocytes # (Auto) 0.8, Eosinophils # (Auto) 0.2, Basophils # (Auto) 0.0 08/23/19 10:58: Glucometer 134H Laboratory Tests 08/22/19 06:03 08/23/19 05:40 08/23/19 06:40 A/P: Assessment: Postural hypotension, likely related to meds and volume depletion Hypokalemia due to diuretic therapy (on two diuretics: chlorthalidone and furosemide). Chlorthalidone d/c'd on 08/20/19 S/P R THR at [facility] in [place], [place] by Dr. Olivier Report MS about [address] Dickens undertook a w/u and Mr Fitzgerald report he was told his CAD was inoperable H/O PPM implant in January [address] Medina at [facility] for symptomatic bradycardia Echo on 08/20/19: LVEF 45-50%, mild to mod AI, mod MAC, RVSP 25 mmHg Permanent A Fib TSH normal (1.31) on 08/21/19 OAC with Eliquis Chronic anemia DM HTN HLD Obesity Plan: * Reduce furosemide and spironolactone and long-acting dilt. Chlorthalidone already d/c'd * Replenish lytes * Monitor labs * I spoke with him and and answered CV-related questions THERESE VOGEL MD FACP FAC CCDS Aug 23, 2019 14:33 POS
--- NOTE | 2019-08-23 16:20 | Physical Therapy Daily Note ---
PT Daily Note-Current Subjective Agrees to PT. Transfers SCALE: Activities may be completed with or without assistive devices. 3-Ydcsqeuawg-cuhkfdc completes the activity by him/herself with no assistance from a helper. 5-Set-up or Clean-up Assistance-helper sets up or cleans up; patient completes activity. [place] assists only prior to or following the activity. 4-Supervision or Touching Assistance-helper provides verbal cues and/or to uching/steadying and/or contact guard assistance as patient completes activity. Assistance may be provided throughout the activity or intermittently. 3-Partial/Moderate Assistance-helper does LESS THAN HALF the effort. [place] lifts, holds or supports trunk or limbs, but provides less than half the effort. 2-Substantial/Maximal Assistance-helper does MORE THAN HALF the effort. [place] lifts or holds trunk or limbs and provides more than half the effort. 4-Qwoeoelmh-axwlpj does ALL the effort. Patient does none of the effort to complete the activity. Or, the assistance of 2 or more helpers is required for the patient to complete the activity. If activity was not attempted, code reason: 7-Patient Refused. 9-Not Applicable-not attempted and the patient did not perform the activity before the current illness, exacerbation or injury. 10-Not Attempted due to Environmental Limitations-(lack of equipment, weather restraints, etc.). 88-Not Attempted due to Medical Conditions or Safety Concerns. Weight Bearing Right Lower Extremity: Right Weight Bearing/Tolerated Left Lower Extremity: Left Full Weight Bearing Treatments Gait training 50 ft x 5 and 100 ft x 1 with FWW with close CGA. Sit to stand 2 reps of 5 each with cues for sequencng and safety. Assessment Current Status: Good Progress Transfers and gait are progressing. Pt is making functional gain.s PT Short Term Goals Short Term Goals Time Frame: Sep 01, 2019 Roll Left & Right: 4 Sit to lyin Lying to sitting on side of be: 4 Sit to stand: 3 Walk 10 feet: 3 PT Skilled Nursing Goals Executive Search Consultant Goals PT Skilled Nursing Goals Time Frame: Sep 15, 2019 Roll Left & Right (QC): 6 Sit to Lying (QC): 6 Lying-Sitting on Side/Bed(QC): 6 Sit to Stand (QC): 6 Chair/Kfa-yy-Kxeqm Xfer(QC): 6 Toilet Transfer (QC): 6 Car Transfer (QC): 4 Does the Patient Walk: No and Walking Goal IS indicated Walk 10 feet (QC): 5 Walk 50ft with 2 Turns (QC): 9 Walk 150 ft (QC): 9 Walking 10ft on Uneven Surface: 9 1 Step (curb) (QC): 9 4 Steps (QC): 9 12 Steps (QC): 9 Picking up an Object (QC): 9 Does the Pt use WC or Scooter?: Yes Wheel 50 feet with 2 turns (QC: 6 Type: Motorized Wheel 150 feet: 6 Type: Motorized PT Plan Problem List Problem List: Activity Tolerance, Functional Strength, Safety Treatment/Plan Treatment Plan: Continue Plan of Care Treatment Plan: Bed Mobility, Education, Functional Activity Yifan, Functional Strength, Group Therapy, Gait, Safety, Therapeutic Exercise, Transfers Treatment Duration: Sep 15, 2019 Frequency: At least 5 of 7 days/Wk (IRF) Estimated Hrs Per Day: 1.5 hours per day Patient and/or Family Agrees t: Yes Safety Risks/Education Patient Education: Transfer Techniques, Safety Issues Teaching Recipient: Patient Teaching Methods: Demonstration, Discussion Response to Teaching: Reinforcement Needed Time/GCodes Time In: 1510 Time Out: 1555 Total Billed Treatment Time: 45 Total Billed Treatment visit GT 30 Ex 15 ELEAZAR NAGEL PT Aug 23, 2019 16:20 POS
[2019-08-23 21:00] VITALS: BP 103/66
[2019-08-23] MEDS: GABAPENTIN 400 MG (NEURONTIN) CAP PO SCH (21:03)
[2019-08-24 06:00] VITALS: BP 96/65
[2019-08-24] MEDS: inSUlin ASPART (NovoLOG) 1 UNIT/0.01 ML (CHARGE PER UNIT) SC SCH ×4 (06:16→21:00)
[2019-08-24] MEDS: FUROSEMIDE 20 MG (LASIX) TAB PO SCH (06:18)
[2019-08-24] MEDS: FERROUS SULF 325 MG (IRON) TAB PO SCH ×2 (06:18→18:13)
[2019-08-24] MEDS: KCL 10 MEQ TAB (MICRO K) PO SCH ×2 (06:18→18:13)
[2019-08-24] MEDS: metFORMIN 500 MG (GLUCOPHAGE) TAB PO SCH ×2 (06:19→18:13)
[2019-08-24 07:00] LABS: ALANINE AMINOTRANSFERASE 55 U/L (0-55); ALBUMIN 3.2 GM/DL (3.2-4.5); ALKALINE PHOSPHATASE 245 U/L (40-136); BILIRUBIN,TOTAL 1.8 MG/DL (0.1-1.0); BUN/CREATININE RATIO 13; CALCIUM 9.2 MG/DL (8.5-10.1); CARBON DIOXIDE 26 MMOL/L (21-32); CHLORIDE 96 MMOL/L (98-107); CREATININE SERUM 0.91 MG/DL (0.60-1.30); GFR ESTIMATED > 60; GLUCOSE 139 MG/DL (70-105); MAGNESIUM 1.7 MG/DL (1.6-2.4); POTASSIUM 3.7 MMOL/L (3.6-5.0); SODIUM 134 MMOL/L (135-145); TOTAL PROTEIN 6.2 GM/DL (6.4-8.2)
[2019-08-24] MEDS ORDERED: FUROSEMIDE 40 MG (LASIX) TAB PO SCH (09:00)
[2019-08-24] MEDS ORDERED: DILTIAZEM 180 MG (CARDIZEM CD) CAP PO SCH (09:00)
--- NOTE | 2019-08-24 09:19 | Occ Therapy Progress Note ---
Therapy Progress Note Pt refused therapy at this time. Pt stated that he felt nauseous/ill and he couldn't get his pain controlled. Will attempt later in AM. visit-REF ELEAZAR ESCOBEDO Aug 24, 2019 09:19 POS
--- NOTE | 2019-08-24 10:22 | Occ Therapy Progress Note ---
Therapy Progress Note Pt refused therapy stating that he was nauseous, just trying to keep his pills down and did not feel good at all. LEW educated pt on therapy processes and benefits of moving. Pt continued to refuse. Will attempt later in AM. 1-REF ELEAZAR ESCOBEDO Aug 24, 2019 10:22 POS
--- NOTE | 2019-08-24 10:36 | PM&R Progress Note ---
Subjective HPI/CC On Admission Date Seen by Provider: Aug 24, 2019 Time Seen by Provider: 09:00 Subjective/Events-last exam Nausea noted today. Pain issues a lot. Overall will have a lot of recovery left to do and uncertain fi he will be able to return home or may need a prison prior to discharge. Bowels are moving. Reviewed meds and labs Conferred with RN Reviewed therapy notes Review of Systems General: Fatigue Musculoskeletal: back pain, leg pain Objective Exam Vital Signs Vital Signs Date Time Temp Pulse Resp B/P (MAP) Pulse Ox O2 Delivery O2 Flow Rate FiO2 08/25/19 09:00 Room Air 08/25/19 06:30 36.4 72 16 105/60 (75) 98 08/24/19 20:47 2.00 Capillary Refill : General Appearance: No Apparent Distress, WD/WN, Chronically ill, Obese HEENT: PERRL/EOMI, Normal ENT Inspection, Pharynx Normal Neck: Full Range of Motion, Normal Inspection, Non Tender, Supple, Carotid Bruit Respiratory: Chest Non Tender, Normal Breath Sounds, No Accessory Muscle Use, No Respiratory Distress, Decreased Breath Sounds Cardiovascular: Regular Rate, Rhythm, No Gallop, No JVD, No Murmur, Normal Peripheral Pulses Gastrointestinal: Normal Bowel Sounds, No Organomegaly, No Pulsatile Mass, Non Tender, Soft Back: Normal Inspection, No CVA Tenderness, No Vertebral Tenderness Extremity: Normal Capillary Refill, Normal Inspection, Normal Range of Motion, Non Tender, No Calf Tenderness, Pedal Edema Neurologic/Psychiatric: Alert, Oriented x3, No Motor/Sensory Deficits (decreased in legs), Normal Mood/Affect, needle control cheniller II-XII Norm as Tested Skin: Normal Color, Warm/Dry Lymphatic: No Adenopathy Results/Procedures Lab Patient resulted labs reviewed. FIM Transfers Therapy Code Descriptions/Definitions Functional [place] Measure: 0=Not Assessed/NA 4=Minimal Assistance 1=Total Assistance 5=Supervision or Setup 2=Maximal Assistance 6=Modified [place] 3=Moderate Assistance 7=Complete IndependenceSCALE: Activities may be completed with or without assistive devices. 2-Nugzyerzwo-fwpifzb completes the activity by him/herself with no assistance from a helper. 5-Set-up or Clean-up Assistance-helper sets up or cleans up; patient completes activity. [place] assists only prior to or following the activity. 4-Supervision or Touching Assistance-helper provides verbal cues and/or touching/steadying and/or contact guard assistance as patient completes activity. Assistance may be provided throughout the activity or intermittently. 3-Partial/Moderate Assistance-helper does LESS THAN HALF the effort. [place] lifts, holds or supports trunk or limbs, but provides less than half the effort. 2-Substantial/Maximal Assistance-helper does MORE THAN HALF the effort. [place] lifts or holds trunk or limbs and provides more than half the effort. 1-Ccimjytow-bfcath does ALL the effort. Patient does none of the effort to co mplete the activity. Or, the assistance of 2 or more helpers is required for the patient to complete the activity. If activity was not attempted, code reason: 7-Patient Refused. 9-Not Applicable-not attempted and the patient did not perform the activity before the current illness, exacerbation or injury. 10-Not Attempted due to Environmental Limitations-(lack of equipment, weather restraints, etc.). 88-Not Attempted due to Medical Conditions or Safety Concerns. Roll Left to Right (QC): 3 Sit to Lying (QC): 3 Sit to Stand (QC): 4 Chair/Xnk-ql-Xweoc Xfer(QC): 4 Car Transfer (QC): 2 (max assist to complete. ) Gait Training Does the Patient Walk?: Yes Distance: 15', 40'x2 Walk 10 feet (QC): 4 Walk 50 ft with 2 Turns(QC): 88 Walk 150 ft (QC): 88 Walking 10ft/uneven surface-QC: 88 Gait Persons Needed: 1 Gait Assistive Device: FWW Wheelchair Training Does the Pt Use a Wheelchair?: Yes Wheel 50 ft with 2 turns (QC): 6 Wheel 150 ft (QC): 6 Type of Wheelchair: Motorized Stair Training 1 Step (curb) (QC): 88 4 Steps (QC): 88 12 Steps (QC): 88 Balance Picking up an Object (QC): 88 ADL-Treatment Eating (QC): 6 Oral Hygiene (QC): 3 (Pt sat EOB during task, OT set up at tray table. Pt able to open denture tablet, placing tablet and dentures into container. OT then assisted with rinsing dentrues, pt scrubbed with toothpaste and tooth brush (r equired max encouragement), then OT rinsed dentures again. Pt then able to put dentures back into his mouth.) Shower/Bathe Self (QC): 4 Upper Body Dressing (QC): 7 Lower Body Dressing (QC): 7 On/Off Footwear (QC): 1 (Pt required total assist with task) Toileting Hygiene (QC): 4 (Supervision using FWW and grabbars.) Toilet Transfer (QC): 4 (Supervision using FWW and grabbars.) Assessment/Plan Assessment and Plan Assess & Plan/Chief Complaint Assessment: Status post uncomplicated right hip replacement Atrial fibrillation CAD Alcoholism Hypertension Diabetes mellitus Hypoglycemic episode Debility chronic Anemia Hypokalemia Hypotension now resolved after IVF so will heplock s/p non-injury fall Plan: Inpatient rehab protocol Monitor potassium Supplement potassium Appreciate cardiology Monitor blood sugar and blood pressure Fall risk Orthostasis poses fall risk (1) Debility (2) CAD (coronary artery disease) (3) Diabetes mellitus (4) Pacemaker (5) Atrial fibrillation (6) IBS (irritable bowel syndrome) (7) KRAIG (obstructive sleep apnea) (8) Hypertension (9) Hyperlipemia (10) Depression (11) BPH (benign prostatic hyperplasia) (12) Status post right hip replacement TOLU PENA DO Aug 24, 2019 10:36
[2019-08-24] MEDS: GABAPENTIN 300 MG (NEURONTIN) CAP PO SCH ×2 (11:12→14:15)
[2019-08-24] MEDS: APIXABAN 5 MG (ELIQUIS) TABLET PO SCH ×2 (11:12→20:45)
[2019-08-24] MEDS: meTOprolol TARTRATE 50 MG (LOPRESSOR) TAB PO SCH ×2 (11:12→20:45)
[2019-08-24] MEDS: DOCUSATE SODIUM 100 MG (COLACE) CAP PO SCH (11:12)
[2019-08-24] MEDS: SPIRONOLACTONE 25 MG (ALDACTONE) TAB PO SCH (11:13)
[2019-08-24] MEDS: DIGOXIN 0.25 MG (LANOXIN) TAB PO SCH (11:13)
[2019-08-24] MEDS: DILTIAZEM 240 MG (CARDIZEM CD) CAP PO SCH (11:13)
[2019-08-24] MEDS: EMPAGLIFLOZIN 25 MG TAB PO SCH (11:14)
[2019-08-24] MEDS: CYANOCOBALAMIN 1,000 MCG (VITAMIN B-12) TABLET PO SCH (11:20)
[2019-08-24] MEDS: SENNA W/DOCUSATE (SENOKOT S) TABLET PO SCH ×2 (11:20→20:45)
[2019-08-24] MEDS: FINASTERIDE (PROSCAR) 5 MG TAB PO SCH (11:20)
[2019-08-24] MEDS: IBUPROFEN 600 MG (MOTRIN) TAB PO SCH ×3 (11:21→19:54)
[2019-08-24] MEDS: POLYETHYLENE GLYCOL 17 GM (MIRALAX) PACK PO SCH ×2 (11:21→20:46)
--- NOTE | 2019-08-24 12:07 | Progress Note - Cardiology ---
Cardiology SOAP Progress Note Objective: I&O/Vital Signs 08/30/19 05:48 Temp 36.8 Pulse 77 Resp 18 B/P (MAP) 106/68 (81) Pulse Ox 98 O2 Delivery Room Air 08/29/19 23:59 Intake Total 2670 ml Output Total 2875 ml Balance -205 ml Constitutional: No apparent distress; other (drowsy, awakens easily, drifts back to sleep) Respiratory: No accessory muscle use, No respiratory distress; chest expansion is symmetric, chest is bilaterally symmetric, lungs clear to auscultation Cardiovascular: regular rate-rhythm; No JVD; S1 and S2 Gastrointestional: No tender; soft Extremities: other (mod RLE swelling) Neurologic/Psychiatric: other (moves extremities) Skin: No rash on exposed areas, No ulcerations on exposed areas Results/Procedures: Labs Laboratory Tests 08/29/19 10:43: Glucometer 117H 08/29/19 16:29: Glucometer 118H 08/29/19 20:25: Glucometer 123H 08/30/19 05:26: Glucometer 114H 08/30/19 05:27: White Blood Count 6.9, Red Blood Count 3.36L, Hemoglobin 10.6L, Hematocrit 32L, Mean Corpuscular Volume 96, Mean Corpuscular Hemoglobin 32, Mean Corpuscular Hemoglobin Concent 33, Red Cell Distribution Width 13.5, Platelet Count 288, Mean Platelet Volume 8.1, Neutrophils (%) (Auto) 71, Lymphocytes (%) (Auto) 13, Monocytes (%) (Auto) 11, Eosinophils (%) (Auto) 3, Basophils (%) (Auto) 1, Neutrophils # (Auto) 4.9, Lymphocytes # (Auto) 0.9L, Monocytes # (Auto) 0.8, Eosinophils # (Auto) 0.2, Basophils # (Auto) 0.1, Sodium Level 137, Potassium Level 3.7, Chloride Level 103, Carbon Dioxide Level 22, Anion Gap 12, Blood Urea Nitrogen 8, Creatinine 0.70, Estimat Glomerular Filtration Rate > 60, BUN/Creatinine Ratio 11, Glucose Level 110H, Calcium Level 8.9, Corrected Calcium 9.5, Total Bilirubin 1.1H, Aspartate Amino Transf (AST/SGOT) 16, Alanine Aminotransferase (ALT/SGPT) 17, Alkaline Phosphatase 138H, Total Protein 6.0L, Albumin 3.2 A/P: Assessment: Postural hypotension, likely related to meds and volume depletion Hypokalemia due to diuretic therapy (on two diuretics: chlorthalidone and furosemide). Chlorthalidone d/c'd on 08/20/19 S/P R THR at [facility] in [place], [place] by Dr. Olivier Report [place] about [address] Dickens undertook a w/u and Mr Fitzgerald report he was told his CAD was inoperable H/O PPM implant in January [address] Medina at [facility] for symptomatic bradycardia Echo on 08/20/19: LVEF 45-50%, mild to mod AI, mod MAC, RVSP 25 mmHg Permanent A Fib TSH normal (1.31) on 08/21/19 OAC with Eliquis Chronic anemia DM HTN HLD Obesity Plan: * Reduce Digoxin * Reduce BB, since he is only receiving it sporadically d/t episodes of low BP * Replenish lytes * Monitor labs * I spoke with him and and answered CV-related questions CATHY MYERS Aug 24, 2019 12:07
--- NOTE | 2019-08-24 12:52 | Occupational Ther Daily Note ---
OT Current Status-Daily Note Subjective Pt alert, lying in bed with pillow over his head stating that he has a headache from the light. Lowered light for pt. Pt attempted to refuse therapy stating he still felt terrible and was going to throw up. Nrsg in room and encouraged pt to participate in therapy. OT/PT co-treat, 2 clinicians for skilled i nstructions and techniques du to pt's increased nausea, pain and decreased mobility. OT focused on UE placement during mobility and ADLs. PT focused on mobility and LE exercises. Mental Status/Objective Patient Orientation: Person, Place, Time, Situation Attachments: IV ADL-Treatment Pt required assist x2 supine to EOB due to pain and decreased mobility. EOB to stand assist x1 with bed elevated. Pt then ambulated to bathroom. Transferred to toilet with CGA stating that he couldn't take one hand off of walker to push pants down, verbal cues to complete. Pt manipulated clothing with CGA. Pt changed briefs after set up and hiked over hips using FWW and grabbars. Pt ambulated to sink and use sink to stabilize self and washed hands and completed oral care with SBA. After therapy, pt sitting in recliner with call light/phone in reach. All needs met in room. Therapy Code Descriptions/Definitions Functional [place] Measure: 0=Not Assessed/NA 4=Minimal Assistance 1=Total Assistance 5=Supervision or Setup 2=Maximal Assistance 6=Modified [place] 3=Moderate Assistance 7=Complete IndependenceSCALE: Activities may be completed with or without assistive devices. 6-Dgirqojlbo-wxgnnwp completes the activity by him/herself with no assistance from a helper. 5-Set-up or Clean-up Assistance-helper sets up or cleans up; patient completes activity. [place] assists only prior to or following the activity. 4-Supervision or Touching Assistance-helper provides verbal cues and/or touching/steadying and/or contact guard assistance as patient completes activity. Assistance may be provided throughout the activity or intermittently. 3-Partial/Moderate Assistance-helper does LESS THAN HALF the effort. [place] lifts, holds or supports trunk or limbs, but provides less than half the effort. 2-Substantial/Maximal Assistance-helper does MORE THAN HALF the effort. [place] lifts or holds trunk or limbs and provides more than half the effort. 5-Hjnvtfjsu-utawtr does ALL the effort. Patient does none of the effort to complete the activity. Or, the assistance of 2 or more helpers is required for the patient to complete the activity. If activity was not attempted, code reason: 7-Patient Refused. 9-Not Applicable-not attempted and the patient did not perform the activity before the current illness, exacerbation or injury. 10-Not Attempted due to Environmental Limitations-(lack of equipment, weather restraints, etc.). 88-Not Attempted due to Medical Conditions or Safety Concerns. Oral Hygiene (QC): 4 Lower Body Dressing (QC): 4 OT Short Term Goals Short Term Goals Time Frame: Aug 27, 2019 OT Flooring Helper Goals Usp Goals Time Frame: Sep 03, 2019 Eating (QC): 6 Oral Hygiene (QC): 6 Toileting Hygiene (QC): 6 Shower/Bathe Self (QC): 6 Upper Body Dressing (QC): 6 Lower Body Dressing (QC): 6 On/Off Footwear (QC): 6 Additional Goals: 1-Demonstrate ADL Tasks, 2-Verbalize Understanding, 3- ImproveStrength/Yifan 1=Demonstrate adherence to instructed precautions during ADL tasks. 2=Patient will verbalize/demonstrate understanding of assistive devices/modif ications for ADL. 3=Patient will improve strength/tolerance for activity to enable patient to perform ADL's. OT Education/Plan Problem List/Assessment Assessment: Decreased Activ Tolerance, Impaired Self-Care Skills Discharge Recommendations Plan/Recommendations: Continue POC Treatment Plan/Plan of Care Patient would benefit from OT for education, treatment and training to promote independence in ADL's, mobility, safety and/or upper extremity function for ADL's. Plan of Care: ADL Retraining, Caregiver Training, Functional Mobility, Group Exercise/Act as Ind, UE Funct Exercise/Act Treatment Duration: Sep 03, 2019 Frequency: At least 5 of 7 days/Wk (IRF) Estimated Hrs Per Day: 1.5 hours per day Agreement: Yes Rehab Potential: Good Time/GCodes Start Time: 11:00 Stop Time: 12:00 Total Time Billed (hr/min): 60 Billed Treatment Time 1 visit-FA 4 (60 min) ELEAZAR ESCOBEDO Aug 24, 2019 12:52 POS
--- NOTE | 2019-08-24 12:53 | Physical Therapy Daily Note ---
PT Daily Note-Current Subjective Pt requiring max encouragement to participate in therapy session. states not feeling well today, some nausea and pain, did receive pain med and nausea medication earlier. Pain Numeric Pain Scale: 10-Worst Possible Pain Comment: hip, butt, headache Appearance Pt in bed with pillow covering face upon arrival. Co tx with OT. Pt requesting and assisted to bathroom. At end of session, pt sitting up in recliner with call light, phone and bedside table within reach. Mental Status Patient Orientation: Person, Place, Time, Eyes Open, Situation Transfers SCALE: Activities may be completed with or without assistive devices. 6-Jmbtnnonco-iziftqx completes the activity by him/herself with no assistance from a helper. 5-Set-up or Clean-up Assistance-helper sets up or cleans up; patient completes activity. [place] assists only prior to or following the activity. 4-Supervision or Touching Assistance-helper provides verbal cues and/or touching/steadying and/or contact guard assistance as patient completes activity. Assistance may be provided throughout the activity or intermittently. 3-Partial/Moderate Assistance-helper does LESS THAN HALF the effort. [place] lifts, holds or supports trunk or limbs, but provides less than half the effort. 2-Substantial/Maximal Assistance-helper does MORE THAN HALF the effort. [place] lifts or holds trunk or limbs and provides more than half the effort. 1-Oqtzrlujp-ieqiij does ALL the effort. Patient does none of the effort to complete the activity. Or, the assistance of 2 or more helpers is required for the patient to complete the activity. If activity was not attempted, code reason: 7-Patient Refused. 9-Not Applicable-not attempted and the patient did not perform the activity before the current illness, exacerbation or injury. 10-Not Attempted due to Environmental Limitations-(lack of equipment, weather restraints, etc.). 88-Not Attempted due to Medical Conditions or Safety Concerns. Lying to Sitting/Side of Bed(Q: 3 Sit to Stand (QC): 4 (height of bed elevated) Toilet Transfer (QC): 4 skilled instruction required for hand placement and safety during sit to and from stand transitions, physical A required supine to sit EOB with HOB slightly elevated and pt using bedrail Weight Bearing Right Lower Extremity: Right Weight Bearing/Tolerated Left Lower Extremity: Left Full Weight Bearing Gait Training Does the Patient Walk?: Yes Distance: 15 x2 Walk 10 feet (QC): 4 Gait Assistive Device: FWW heavily relying on walker with UE's, decreased WB RLE, RLE knee flex slight ER, slow pace, step to gait pattern Exercises Supine Ex: Ankle pumps, Hip abd/add (AAROM RLE, AROM LLE) Supine Reps: 10 (x2 sets) Seated Therapy Exercises: Ankle pumps (20), Sit to stand (5), Long arc quads (10) Treatments OT/PT co-treat, 2 clinicians for skilled instructions and techniques due to pt's increased nausea, pain and decreased mobility. OT focused on UE placement during mobility and ADLs. PT focused on mobility and LE exercises., education, safety, bed mobility, activity tolerance, transfers, gait, toileting, ADL's, functional mobility, balance, strength. BP supine at rest 121/71, BP after supine to sit 114/66. SPO2 100%, 77-79bpm. Assessment Current Status: Fair Progress inappropriate comments at times, encouragement required to participate in therapy PT Short Term Goals Short Term Goals Time Frame: Sep 01, 2019 Roll Left & Right: 4 Sit to lyin Lying to sitting on side of be: 4 Sit to stand: 3 Walk 10 feet: 3 PT Assistant Secretary Goals Assistant Secretary Goals PT Assistant Secretary Goals Time Frame: Sep 15, 2019 Roll Left & Right (QC): 6 Sit to Lying (QC): 6 Lying-Sitting on Side/Bed(QC): 6 Sit to Stand (QC): 6 Chair/Vzh-hk-Aoujq Xfer(QC): 6 Toilet Transfer (QC): 6 Car Transfer (QC): 4 Does the Patient Walk: No and Walking Goal IS indicated Walk 10 feet (QC): 5 Walk 50ft with 2 Turns (QC): 9 Walk 150 ft (QC): 9 Walking 10ft on Uneven Surface: 9 1 Step (curb) (QC): 9 4 Steps (QC): 9 12 Steps (QC): 9 Picking up an Object (QC): 9 Does the Pt use WC or Scooter?: Yes Wheel 50 feet with 2 turns (QC: 6 Type: Motorized Wheel 150 feet: 6 Type: Motorized PT Plan Treatment/Plan Treatment Plan: Continue Plan of Care Treatment Plan: Bed Mobility, Education, Functional Activity Yifan, Functional Strength, Group Therapy, Gait, Safety, Therapeutic Exercise, Transfers Treatment Duration: Sep 15, 2019 Frequency: At least 5 of 7 days/Wk (IRF) Estimated Hrs Per Day: 1.5 hours per day Patient and/or Family Agrees t: Yes Safety Risks/Education Patient Education: Gait Training, Transfer Techniques, Reviewed Precautions, Correct Positioning, Safety Issues Teaching Recipient: Patient Teaching Methods: Demonstration, Discussion Response to Teaching: Verbalize Understanding, Return Demonstration, Reinforcement Needed Time/GCodes Time In: 1100 Time Out: 1200 Total Billed Treatment Time: 60 Total Billed Treatment 1 visit, FA x45 min, EX x15 min MAZIN JOHNSON ASSISTED LIVING DIRECTOR Aug 24, 2019 12:53 POS
--- NOTE | 2019-08-24 13:47 | Occupational Ther Daily Note ---
OT Current Status-Daily Note Subjective Pt alert, sitting in recliner. Pt agrees to therapy. Pt c/o pain with movement, rated 9/10. Pain meds given prior to therapy session. Mental Status/Objective Patient Orientation: Person, Place, Time, Situation Attachments: IV ADL-Treatment Pt able to complete own meal set up and uses regular utensils to eat. Sit to stand CGA then ambulated to room door and back with CGA for safety using FWW. Pt then required assist with LE's for EOB to supine. After therapy, pt lying in bed with call light/phone in reach. All needs met in room. Therapy Code Descriptions/Definitions Functional [place] Measure: 0=Not Assessed/NA 4=Minimal Assistance 1=Total Assistance 5=Supervision or Setup 2=Maximal Assistance 6=Modified [place] 3=Moderate Assistance 7=Complete IndependenceSCALE: Activities may be completed with or without assistive devices. 9-Khpzfgaqmj-mbvygfu completes the activity by him/herself with no assistance from a helper. 5-Set-up or Clean-up Assistance-helper sets up or cleans up; patient completes activity. [place] assists only prior to or following the activity. 4-Supervision or Touching Assistance-helper provides verbal cues and/or touching/steadying and/or contact guard assistance as patient completes activity. Assistance may be provided throughout the activity or intermittently. 3-Partial/Moderate Assistance-helper does LESS THAN HALF the effort. [place] lifts, holds or supports trunk or limbs, but provides less than half the effort. 2-Substantial/Maximal Assistance-helper does MORE THAN HALF the effort. [place] lifts or holds trunk or limbs and provides more than half the effort. 6-Gnbxcifkm-hynknz does ALL the effort. Patient does none of the effort to complete the activity. Or, the assistance of 2 or more helpers is required for the patient to complete the activity. If activity was not attempted, code reason: 7-Patient Refused. 9-Not Applicable-not attempted and the patient did not perform the activity before the current illness, exacerbation or injury. 10-Not Attempted due to Environmental Limitations-(lack of equipment, weather restraints, etc.). 88-Not Attempted due to Medical Conditions or Safety Concerns. OT Short Term Goals Short Term Goals Time Frame: Aug 27, 2019 OT Surveillance Sensor Officer Goals Surveillance Sensor Officer Goals Time Frame: Sep 03, 2019 Eating (QC): 6 Oral Hygiene (QC): 6 Toileting Hygiene (QC): 6 Shower/Bathe Self (QC): 6 Upper Body Dressing (QC): 6 Lower Body Dressing (QC): 6 On/Off Footwear (QC): 6 Additional Goals: 1-Demonstrate ADL Tasks, 2-Verbalize Understanding, 3-ImproveStrength/Yifan 1=Demonstrate adherence to instructed precautions during ADL tasks. 2=Patient will verbalize/demonstrate understanding of assistive devices/modifications for ADL. 3=Patient will improve strength/tolerance for activity to enable patient to per form ADL's. OT Education/Plan Problem List/Assessment Assessment: Decreased Activ Tolerance, Decreased UE Strength, Impaired Coordination, Impaired Funct Balance, Impaired Self-Care Skills Discharge Recommendations Plan/Recommendations: Continue POC Treatment Plan/Plan of Care Patient would benefit from OT for education, treatment and training to promote independence in ADL's, mobility, safety and/or upper extremity function for ADL's. Plan of Care: ADL Retraining, Caregiver Training, Functional Mobility, Group Exercise/Act as Ind, UE Funct Exercise/Act Treatment Duration: Sep 03, 2019 Frequency: At least 5 of 7 days/Wk (IRF) Estimated Hrs Per Day: 1.5 hours per day Agreement: Yes Rehab Potential: Good Time/GCodes Start Time: 13:00 Stop Time: 13:30 Total Time Billed (hr/min): 30 Billed Treatment Time 1 visit-FA 2 (30 min) ELEAZAR ESCOBEDO Aug 24, 2019 13:47 POS
--- NOTE | 2019-08-24 15:14 | Physical Therapy Daily Note ---
PT Daily Note-Current Subjective Patient reluctantly agrees to PT. Pain Numeric Pain Scale: 8 Location: Right Location Body Site: Hip Pain Description: Acute Mental Status Patient Orientation: Normal For Age Transfers SCALE: Activities may be completed with or without assistive devices. 5-Ivodzsacwx-uyxbifj completes the activity by him/herself with no assistance from a helper. 5-Set-up or Clean-up Assistance-helper sets up or cleans up; patient completes activity. [place] assists only prior to or following the activity. 4-Supervision or Touching Assistance-helper provides verbal cues and/or touching/steadying and/or contact guard assistance as patient completes activity. Assistance may be provided throughout the activity or intermittently. 3-Partial/Moderate Assistance-helper does LESS THAN HALF the effort. [place] lifts, holds or supports trunk or limbs, but provides less than half the effort. 2-Substantial/Maximal Assistance-helper does MORE THAN HALF the effort. [place] lifts or holds trunk or limbs and provides more than half the effort. 3-Ytjuwogpn-wynstu does ALL the effort. Patient does none of the effort to complete the activity. Or, the assistance of 2 or more helpers is required for the patient to complete the activity. If activity was not attempted, code reason: 7-Patient Refused. 9-Not Applicable-not attempted and the patient did not perform the activity before the current illness, exacerbation or injury. 10-Not Attempted due to Environmental Limitations-(lack of equipment, weather restraints, etc.). 88-Not Attempted due to Medical Conditions or Safety Concerns. Roll Left & Right (QC): 3 Sit to Lying (QC): 3 Lying to Sitting/Side of Bed(Q: 3 Sit to Stand (QC): 4 Chair/Umf-rc-Gvnkb Xfer(QC): 4 Weight Bearing Right Lower Extremity: Right Weight Bearing/Tolerated Left Lower Extremity: Left Full Weight Bearing Gait Training Does the Patient Walk?: Yes Distance: 150' x 2 Walk 10 feet (QC): 5 Walk 50 ft with 2 Turns(QC): 5 Walk 150 ft (QC): 5 Gait Assistive Device: FWW slow, antalgic, step to gait sequence Exercises Supine Ex: Ankle pumps, Quad Set, Heel Slides Supine Reps: 12 (AAROM right LE) Seated Therapy Exercises: Ankle pumps, Long arc quads Seated Reps: 15 (AAROM) Assessment Patient progressing with treatment plan. Patient continues to require much encouragement to participate with therapy. PT Short Term Goals Short Term Goals Time Frame: Sep 01, 2019 Roll Left & Right: 4 Sit to lyin Lying to sitting on side of be: 4 Sit to stand: 3 Walk 10 feet: 3 PT Slurry Man Goals Retirement Goals PT Slurry Man Goals Time Frame: Sep 15, 2019 Roll Left & Right (QC): 6 Sit to Lying (QC): 6 Lying-Sitting on Side/Bed(QC): 6 Sit to Stand (QC): 6 Chair/Znn-wg-Idujb Xfer(QC): 6 Toilet Transfer (QC): 6 Car Transfer (QC): 4 Does the Patient Walk: No and Walking Goal IS indicated Walk 10 feet (QC): 5 Walk 50ft with 2 Turns (QC): 9 Walk 150 ft (QC): 9 Walking 10ft on Uneven Surface: 9 1 Step (curb) (QC): 9 4 Steps (QC): 9 12 Steps (QC): 9 Picking up an Object (QC): 9 Does the Pt use WC or Scooter?: Yes Wheel 50 feet with 2 turns (QC: 6 Type: Motorized Wheel 150 feet: 6 Type: Motorized PT Plan Treatment/Plan Treatment Plan: Continue Plan of Care Treatment Plan: Bed Mobility, Education, Functional Activity Yifan, Functional Strength, Group Therapy, Gait, Safety, Therapeutic Exercise, Transfers Treatment Duration: Sep 15, 2019 Frequency: At least 5 of 7 days/Wk (IRF) Estimated Hrs Per Day: 1.5 hours per day Patient and/or Family Agrees t: Yes Time/GCodes Time In: 1426 Time Out: 1458 Total Billed Treatment Time: 32 Total Billed Treatment 1 visit EX 16 min GT 16 min JUNIOR LILLY PT Aug 24, 2019 15:14 POS
--- NOTE | 2019-08-24 16:42 | Progress Note - Cardiology ---
Cardiology SOAP Progress Note Subjective: Feels less dizzy since meds reduced No cp or palp or syncope Chronic weakness persists Objective: I&O/Vital Signs 08/24/19 06:00 Temp 35.6 Pulse 65 Resp 18 B/P (MAP) 96/65 (75) Pulse Ox 98 O2 Delivery Room Air 08/24/19 00:00 Intake Total 2025 ml Output Total 1520 ml Balance 505 ml Constitutional: No apparent distress; other (drowsy, awakens easily, drifts back to sleep) Respiratory: No accessory muscle use, No respiratory distress; chest expansion is symmetric, chest is bilaterally symmetric, lungs clear to auscultation Cardiovascular: regular rate-rhythm; No JVD; S1 and S2 Gastrointestional: No tender; soft Extremities: other (mod RLE swelling) Neurologic/Psychiatric: other (moves extremities) Skin: No rash on exposed areas, No ulcerations on exposed areas Results/Procedures: Labs Laboratory Tests 08/23/19 17:01: Glucometer 140H 08/23/19 20:44: Glucometer 158H 08/24/19 05:58: Glucometer 164H 08/24/19 06:28: Sodium Level 134L, Potassium Level 3.7, Chloride Level 96L, Carbon Dioxide Level 26, Anion Gap 12, Blood Urea Nitrogen 12, Creatinine 0.91, Estimat Glomerular Filtration Rate > 60, BUN/Creatinine Ratio 13, Glucose Level 139H, Calcium Level 9.2, Corrected Calcium 9.8, Magnesium Level 1.7, Total Bilirubin 1.8H, Aspartate Amino Transf (AST/SGOT) 46H, Alanine Aminotransferase (ALT/SGPT) 55, Alkaline Phosphatase 245H, Total Protein 6.2L, Albumin 3.2, Digoxin Level 1.07 08/24/19 10:52: Glucometer 146H Laboratory Tests 08/23/19 05:40 08/23/19 06:40 08/24/19 06:28 A/P: Assessment: Postural hypotension, likely related to meds and volume depletion Hypokalemia due to diuretic therapy (on two diuretics: chlorthalidone and furosemide). Chlorthalidone d/c'd on 08/20/19 S/P R THR at [facility] in [place], [place] by Dr. Olivier Report [place] about [address]. [address] Dickens undertook a w/u and Mr Fitzgerald report he was told his CAD was inoperable H/O PPM implant in January [address] Medina at [facility] for symptomatic bradycardia Echo on 08/20/19: LVEF 45-50%, mild to mod AI, mod MAC, RVSP 25 mmHg Permanent A Fib TSH normal (1.31) on 08/21/19 OAC with Eliquis Chronic anemia DM HTN HLD Obesity Plan: * Continue current regimen of reduced meds * Monitor labs * I spoke with him and and answered CV-related questions THERESE VOGEL MD FACP FAC CCDS Aug 24, 2019 16:42 POS
[2019-08-24 18:00] VITALS: BP 94/66
[2019-08-24] MEDS: GABAPENTIN 400 MG (NEURONTIN) CAP PO SCH (20:45)
[2019-08-24] MEDS: MELATONIN 3 MG TABLET PO PRN (20:45)
[2019-08-25] MEDS: inSUlin ASPART (NovoLOG) 1 UNIT/0.01 ML (CHARGE PER UNIT) SC SCH ×4 (05:29→20:58)
[2019-08-25] MEDS: metFORMIN 500 MG (GLUCOPHAGE) TAB PO SCH ×2 (06:01→17:32)
[2019-08-25] MEDS: FERROUS SULF 325 MG (IRON) TAB PO SCH ×2 (06:01→17:32)
[2019-08-25] MEDS: KCL 10 MEQ TAB (MICRO K) PO SCH ×2 (06:02→17:32)
[2019-08-25] MEDS: FUROSEMIDE 20 MG (LASIX) TAB PO SCH (06:02)
[2019-08-25 06:30] VITALS: BP 105/60
[2019-08-25] MEDS: meTOprolol TARTRATE 50 MG (LOPRESSOR) TAB PO SCH ×2 (09:17→21:04)
[2019-08-25] MEDS: DILTIAZEM 240 MG (CARDIZEM CD) CAP PO SCH (09:17)
[2019-08-25] MEDS: DIGOXIN 0.125 MG (LANOXIN) TAB PO SCH (09:17)
[2019-08-25] MEDS: APIXABAN 5 MG (ELIQUIS) TABLET PO SCH ×2 (09:17→21:02)
[2019-08-25] MEDS: GABAPENTIN 300 MG (NEURONTIN) CAP PO SCH ×2 (09:17→13:22)
[2019-08-25] MEDS: POLYETHYLENE GLYCOL 17 GM (MIRALAX) PACK PO SCH ×2 (09:17→21:02)
[2019-08-25] MEDS: IBUPROFEN 600 MG (MOTRIN) TAB PO SCH ×3 (09:17→21:02)
[2019-08-25] MEDS: DOCUSATE SODIUM 100 MG (COLACE) CAP PO SCH (09:18)
[2019-08-25] MEDS: SPIRONOLACTONE 25 MG (ALDACTONE) TAB PO SCH (09:18)
[2019-08-25] MEDS: CYANOCOBALAMIN 1,000 MCG (VITAMIN B-12) TABLET PO SCH (09:18)
[2019-08-25] MEDS: SENNA W/DOCUSATE (SENOKOT S) TABLET PO SCH ×2 (09:18→21:02)
[2019-08-25] MEDS: CALCIUM CARBONATE 500 MG (TUMS) TAB.CHEW PO PRN (09:25)
[2019-08-25] MEDS: FINASTERIDE (PROSCAR) 5 MG TAB PO SCH (09:25)
[2019-08-25] MEDS: EMPAGLIFLOZIN 25 MG TAB PO SCH (09:26)
--- NOTE | 2019-08-25 10:41 | Occupational Ther Daily Note ---
OT Current Status-Daily Note Subjective Pt alert, lying in bed with pillow over eyes. Pt stated that he was nauseous and didn't understand why they have so much carbs on the menu. Discussed with dietary and dietary has discussed with pt about menu. Did request that pt get eggs instead of pancakes or italian toast. After encouragement pt agrees to therapy. Pt c/o pain, did not rate and nausea. Reported to nrsg, nrsg brought meds. Mental Status/Objective Patient Orientation: Person, Place, Time, Situation Attachments: IV ADL-Treatment Pt agrees to shower. Mod A for supine <--> EOB with HOB elevated and using bed rails. Pt transferred into/out of shower with mod to min A for safety using grabbars, shower bench and FWW. Pt completed shower sitting on bench using grabbars and hand held shower, SBA. Pt declines long handle sponge and uses wash cloth on floor to scrub feet. Pt does know hip precautions and adheres to them. Pt does have increased pain initially and decreases during mobility. Using AE, pt able to don/doff lower body clothing with CGA to SBA in standing to hike pants over hips. Pt wants to use hospital gown due to issues with using urinal and it spilling. Pt takes increased time to complete tasks due to increased pain and decreased motivation. After therapy, pt lying in bed with call light/phone in reach. All needs met in room. Therapy Code Descriptions/Definitions Functional [place] Measure: 0=Not Assessed/NA 4=Minimal Assistance 1=Total Assistance 5=Supervision or Setup 2=Maximal Assistance 6=Modified [place] 3=Moderate Assistance 7=Complete IndependenceSCALE: Activities may be completed with or without assistive devices. 3-Nfjwnteodg-iapwwen completes the activity by him/herself with no assistance from a helper. 5-Set-up or Clean-up Assistance-helper sets up or cleans up; patient completes activity. [place] assists only prior to or following the activity. 4-Supervision or Touching Assistance-helper provides verbal cues and/or touching/steadying and/or contact guard assistance as patient completes activity. Assistance may be provided throughout the activity or intermittently. 3-Partial/Moderate Assistance-helper does LESS THAN HALF the effort. [place] lifts, holds or supports trunk or limbs, but provides less than half the effort. 2-Substantial/Maximal Assistance-helper does MORE THAN HALF the effort. [place] lifts or holds trunk or limbs and provides more than half the effort. 8-Yfsbfudvl-eiidde does ALL the effort. Patient does none of the effort to complete the activity. Or, the assistance of 2 or more helpers is required for the patient to complete the activity. If activity was not attempted, code reason: 7-Patient Refused. 9-Not Applicable-not attempted and the patient did not perform the activity before the current illness, exacerbation or injury. 10-Not Attempted due to Environmental Limitations-(lack of equipment, weather restraints, etc.). 88-Not Attempted due to Medical Conditions or Safety Concerns. Shower/Bathe Self (QC): 4 Upper Body Dressing (QC): 5 Lower Body Dressing (QC): 4 (Footwear (QC) 5) OT Short Term Goals Short Term Goals Time Frame: Aug 27, 2019 OT Rounding Machine Operator Goals Custodial Goals Time Frame: Sep 03, 2019 Eating (QC): 6 Oral Hygiene (QC): 6 Toileting Hygiene (QC): 6 Shower/Bathe Self (QC): 6 Upper Body Dressing (QC): 6 Lower Body Dressing (QC): 6 On/Off Footwear (QC): 6 Additional Goals: 1-Demonstrate ADL Tasks, 2-Verbalize Understanding, 3- ImproveStrength/Yifan 1=Demonstrate adherence to instructed precautions during ADL tasks. 2=Patient will verbalize/demonstrate understanding of assistive devices/modifications for ADL. 3=Patient will improve strength/tolerance for activity to enable patient to perform ADL's. OT Education/Plan Problem List/Assessment Assessment: Decreased Activ Tolerance, Impaired Coordination, Impaired Funct Balance, Impaired Self-Care Skills Discharge Recommendations Plan/Recommendations: Continue POC Treatment Plan/Plan of Care Patient would benefit from OT for education, treatment and training to promote independence in ADL's, mobility, safety and/or upper extremity function for ADL's. Plan of Care: ADL Retraining, Caregiver Training, Functional Mobility, Group Exercise/Act as Ind, UE Funct Exercise/Act Treatment Duration: Sep 03, 2019 Frequency: At least 5 of 7 days/Wk (IRF) Estimated Hrs Per Day: 1.5 hours per day Agreement: Yes Rehab Potential: Good Time/GCodes Start Time: 09:00 Stop Time: 10:30 Total Time Billed (hr/min): 90 Billed Treatment Time 1 visit-ADL 6 (90 min) ELEAZAR ESCOBEDO Aug 25, 2019 10:41
--- NOTE | 2019-08-25 11:56 | Physical Therapy Daily Note ---
PT Daily Note-Current Subjective Pt. states he really wants to get out of here. States his is having surgery for colon cancer soon, states he has help everyday at home. Pt. resists some of the active hip exercises and was educated by this MATHEMATICAL TECHNICIAN about how exercise with improve function etc. pt. c/o dizziness in sit and stand as well. BPs low in these positions, see below no tolerance for upright position. Nursing advised Pain Numeric Pain Scale: 5-Moderate Pain Location: Right Location Body Site: Hip Pain Description: Ache Appearance right knee ext lag 10-15 degrees Mental Status Patient Orientation: Person, Place, Time, Situation, Normal For Age Transfers SCALE: Activities may be completed with or without assistive devices. 4-Brovfnuftc-ztweriv completes the activity by him/herself with no assistance from a helper. 5-Set-up or Clean-up Assistance-helper sets up or cleans up; patient completes activity. [place] assists only prior to or following the activity. 4-Supervision or Touching Assistance-helper provides verbal cues and/or touching/steadying and/or contact guard assistance as patient completes activity. Assistance may be provided throughout the activity or intermittently. 3-Partial/Moderate Assistance-helper does LESS THAN HALF the effort. [place] lifts, holds or supports trunk or limbs, but provides less than half the effort. 2-Substantial/Maximal Assistance-helper does MORE THAN HALF the effort. [place] lifts or holds trunk or limbs and provides more than half the effort. 1-Offoznjnd-wzbqpt does ALL the effort. Patient does none of the effort to complete the activity. Or, the assistance of 2 or more helpers is required for the patient to complete the activity. If activity was not attempted, code reason: 7-Patient Refused. 9-Not Applicable-not attempted and the patient did not perform the activity before the current illness, exacerbation or injury. 10-Not Attempted due to Environmental Limitations-(lack of equipment, weather restraints, etc.). 88-Not Attempted due to Medical Conditions or Safety Concerns. Roll Left & Right (QC): 4 Sit to Lying (QC): 4 Lying to Sitting/Side of Bed(Q: 4 Sit to Stand (QC): 4 Chair/Uze-tl-Vuymx Xfer(QC): 4 Weight Bearing Right Lower Extremity: Right Weight Bearing/Tolerated Left Lower Extremity: Left Full Weight Bearing Gait Training pt. took only 2-3 steps dance fashion bed to recliner which was positioned right next to bed. gait was not feasible with low BPs , see below Exercises Supine Ex: Ankle pumps, Quad Set, Rolling, Glut sets, Heel Slides (assisted right), Short Arc Quads, Straight leg raise (assisted), Hip abd/add (assisted) Supine Reps: 15 Seated Therapy Exercises: Ankle pumps, Sit to stand, Long arc quads Seated Reps: 10 Assessment Current Status: Fair [place] seated BP initially in sitting when pt. 1st c/o dizziness: 90/54 HR78, standing: BP 53/28 HR 70, seated again BP: 82/50, HR 64, supine in recliner BP: 94/59 HR 64 pt. unable to tolerate gait secondary to low BP. up in recliner with nursing advised, call brambila at hand PT Short Term Goals Short Term Goals Time Frame: Sep 01, 2019 Roll Left & Right: 4 Sit to lyin Lying to sitting on side of be: 4 Sit to stand: 3 Walk 10 feet: 3 PT Fixer Boarding Room Goals Fixer Boarding Room Goals PT Fixer Boarding Room Goals Time Frame: Sep 15, 2019 Roll Left & Right (QC): 6 Sit to Lying (QC): 6 Lying-Sitting on Side/Bed(QC): 6 Sit to Stand (QC): 6 Chair/Asj-wv-Xjdtj Xfer(QC): 6 Toilet Transfer (QC): 6 Car Transfer (QC): 4 Does the Patient Walk: No and Walking Goal IS indicated Walk 10 feet (QC): 5 Walk 50ft with 2 Turns (QC): 9 Walk 150 ft (QC): 9 Walking 10ft on Uneven Surface: 9 1 Step (curb) (QC): 9 4 Steps (QC): 9 12 Steps (QC): 9 Picking up an Object (QC): 9 Does the Pt use WC or Scooter?: Yes Wheel 50 feet with 2 turns (QC: 6 Type: Motorized Wheel 150 feet: 6 Type: Motorized PT Plan Treatment/Plan Treatment Plan: Continue Plan of Care Treatment Plan: Bed Mobility, Education, Functional Activity Yifan, Functional Strength, Group Therapy, Gait, Safety, Therapeutic Exercise, Transfers Treatment Duration: Sep 15, 2019 Frequency: At least 5 of 7 days/Wk (IRF) Estimated Hrs Per Day: 1.5 hours per day Patient and/or Family Agrees t: Yes Safety Risks/Education Patient Education: Transfer Techniques, Correct Positioning, Disease Process, Safety Issues Teaching Recipient: Patient Teaching Methods: Demonstration, Discussion Response to Teaching: Verbalize Understanding, Return Demonstration, Reinforcement Needed Time/GCodes Time In: 1100 Time Out: 1200 Total Billed Treatment Time: 60 Total Billed Treatment 1,FA35m,EX25m CARLOS PERALTA MATHEMATICAL TECHNICIAN Aug 25, 2019 11:56
--- NOTE | 2019-08-25 15:29 | Therapy Group Daily Note ---
Therapy Daily Group Note Patient Education Topic Other List Below (memory) Exercises LE Seated Exercise, UE Exercise Session Ratio (pt:therapist): 3:1 Goal of Session: Memory Strategies, UE/LE Strengthing Goal Met for this Session: Yes Pt Benefit of Group: Contributions to Others, Increased Functional Strength, Improved Cognition, Recognition of Peers, Socialization Other/Notes Pt attended OT/PT group this pm. Pt introduced self to group for socialization and listened to peers. Pt was able to lead one seated exercise and then completed peer led seated exercises as able . Education consisted of memory strategies. Pt acknowledged understanding of educational topic. Pt participated in group memory activity. Pt returned to room with needs met after session. Start Time: 13:00 Stop Time: 14:15 Total Billed Treatment Time: 75 Total Billed Treatment 1 visit, GRP(75minutes) LETICIA JESSICA OT Aug 25, 2019 15:29
[2019-08-25 18:00] VITALS: BP 98/60
--- NOTE | 2019-08-25 19:06 | Progress Note - Cardiology ---
Cardiology SOAP Progress Note Subjective: He reports postural dizziness His nurse reports hypotensive episodes No cp or palp or syncope Gen weakness No [place] Objective: I&O/Vital Signs 08/25/19 09:00 O2 Delivery Room Air 08/25/19 00:00 Intake Total 2025 ml Output Total 1520 ml Balance 505 ml Constitutional: No apparent distress; other (drowsy, awakens easily, drifts back to sleep) Respiratory: No accessory muscle use, No respiratory distress; chest expansion is symmetric, chest is bilaterally symmetric, lungs clear to auscultation Cardiovascular: regular rate-rhythm; No JVD; S1 and S2 Gastrointestional: No tender; soft Extremities: other (mod RLE swelling) Neurologic/Psychiatric: other (moves extremities) Skin: No rash on exposed areas, No ulcerations on exposed areas Results/Procedures: Labs Laboratory Tests 08/24/19 21:00: Glucometer 160H 08/25/19 05:24: Glucometer 127H 08/25/19 10:57: Glucometer 132H 08/25/19 17:04: Glucometer 129H Laboratory Tests 08/24/19 06:28 A/P: Assessment: Postural hypotension, likely related to meds and volume depletion Hypokalemia due to diuretic therapy (on two diuretics: chlorthalidone and furosemide). Chlorthalidone d/c'd on 08/20/19 S/P R THR at [facility] in [place], [place] by Dr. Olivier Report [place] about [address]. [address] Dickens undertook a w/u and Mr Fitzgerald report he was told his CAD was inoperable H/O PPM implant in January [address] Medina at [facility] for symptomatic bradycardia Echo on 08/20/19: LVEF 45-50%, mild to mod AI, mod MAC, RVSP 25 mmHg Permanent A Fib TSH normal (1.31) on 08/21/19 OAC with Eliquis Chronic anemia DM HTN HLD Obesity Plan: * Stop furosemide * Stop spironolactone * Stop K * Stop Cardizem * Continue dig * Continue apixaban * Monitor labs * I discussed our treatment plan and its rationale with him, and answered CV- related questions THERESE VOGEL MD FACP [facility] CCDS Aug 25, 2019 19:06
[2019-08-25] MEDS: GABAPENTIN 400 MG (NEURONTIN) CAP PO SCH (21:02)
--- NOTE | 2019-08-25 21:33 | PM&R Progress Note ---
Subjective HPI/CC On Admission Date Seen by Provider: Aug 25, 2019 Time Seen by Provider: 08:45 Subjective/Events-last exam Had a BM No nausea Not very optimistic today Tried to motivate and encourage No new pain s reported Overall participating pretty well Reviewed meds and labs Conferred with RN Reviewed therapy notes Review of Systems Musculoskeletal: back pain, leg pain Objective Exam Vital Signs Vital Signs Date Time Temp Pulse Resp B/P (MAP) Pulse Ox O2 Delivery O2 Flow Rate FiO2 08/25/19 18:00 36.6 60 18 98/60 (73) 98 Room Air 08/24/19 20:47 2.00 Capillary Refill : General Appearance: No Apparent Distress, WD/WN, Chronically ill, Obese HEENT: PERRL/EOMI, Normal ENT Inspection, Pharynx Normal Neck: Full Range of Motion, Normal Inspection, Non Tender, Supple, Carotid Bruit Respiratory: Chest Non Tender, Normal Breath Sounds, No Accessory Muscle Use, No Respiratory Distress, Decreased Breath Sounds Cardiovascular: Regular Rate, Rhythm, No Gallop, No JVD, No Murmur, Normal Peripheral Pulses Gastrointestinal: Normal Bowel Sounds, No Organomegaly, No Pulsatile Mass, Non Tender, Soft Back: Normal Inspection, No CVA Tenderness, No Vertebral Tenderness Extremity: Normal Capillary Refill, Normal Inspection, Normal Range of Motion, Non Tender, No Calf Tenderness, Pedal Edema Neurologic/Psychiatric: Alert, Oriented x3, No Motor/Sensory Deficits (decreased in legs), Normal 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 FIM Transfers Therapy Code Descriptions/Definitions Functional [place] Measure: 0=Not Assessed/NA 4=Minimal Assistance 1=Total Assistance 5=Supervision or Setup 2=Maximal Assistance 6=Modified [place] 3=Moderate Assistance 7=Complete IndependenceSCALE: Activities may be completed with or without assistive devices. 7-Owfphxzgtz-gwuzblr completes the activity by him/herself with no assistance from a helper. 5-Set-up or Clean-up Assistance-helper sets up or cleans up; patient completes activity. [place] assists only prior to or following the activity. 4-Supervision or Touching Assistance-helper provides verbal cues and/or touching/steadying and/or contact guard assistance as patient completes activity. Assistance may be provided throughout the activity or intermittently. 3-Partial/Moderate Assistance-helper does LESS THAN HALF the effort. [place] lifts, holds or supports trunk or limbs, but provides less than half the effort. 2-Substantial/Maximal Assistance-helper does MORE THAN HALF the effort. [place] lifts or holds trunk or limbs and provides more than half the effort. 9-Wmadvlxgu-eluamy does ALL the effort. Patient does none of the effort to com plete the activity. Or, the assistance of 2 or more helpers is required for the patient to complete the activity. If activity was not attempted, code reason: 7-Patient Refused. 9-Not Applicable-not attempted and the patient did not perform the activity before the current illness, exacerbation or injury. 10-Not Attempted due to Environmental Limitations-(lack of equipment, weather restraints, etc.). 88-Not Attempted due to Medical Conditions or Safety Concerns. Roll Left to Right (QC): 4 Sit to Lying (QC): 4 Sit to Stand (QC): 4 Chair/Ymo-mt-Bejps Xfer(QC): 4 Car Transfer (QC): 2 (max assist to complete. ) Gait Training Does the Patient Walk?: Yes Distance: 150' x 2 Walk 10 feet (QC): 5 Walk 50 ft with 2 Turns(QC): 5 Walk 150 ft (QC): 5 Walking 10ft/uneven surface-QC: 88 Gait Persons Needed: 1 Gait Assistive Device: FWW Wheelchair Training Does the Pt Use a Wheelchair?: Yes Wheel 50 ft with 2 turns (QC): 6 Wheel 150 ft (QC): 6 Type of Wheelchair: Motorized Stair Training 1 Step (curb) (QC): 88 4 Steps (QC): 88 12 Steps (QC): 88 Balance Picking up an Object (QC): 88 ADL-Treatment Eating (QC): 6 Oral Hygiene (QC): 4 Shower/Bathe Self (QC): 4 Upper Body Dressing (QC): 5 Lower Body Dressing (QC): 4 (Footwear (QC) 5) On/Off Footwear (QC): 1 (Pt required total assist with task) Toileting Hygiene (QC): 4 (Supervision using FWW and grabbars.) Toilet Transfer (QC): 4 (Supervision using FWW and grabbars.) Assessment/Plan Assessment and Plan Assess & Plan/Chief Complaint Assessment: Status post uncomplicated right hip replacement Atrial fibrillation CAD Alcoholism Hypertension Diabetes mellitus Hypoglycemic episode Debility chronic Anemia Hypokalemia Hypotension now resolved after IVF so will heplock s/p non-injury fall Plan: Inpatient rehab protocol Monitor potassium Supplement potassium Appreciate cardiology Monitor blood sugar and blood pressure Fall risk Orthostasis poses fall risk (1) Debility (2) CAD (coronary artery disease) (3) Diabetes mellitus (4) Pacemaker (5) Atrial fibrillation (6) IBS (irritable bowel syndrome) (7) KRAIG (obstructive sleep apnea) (8) Hypertension (9) Hyperlipemia (10) Depression (11) BPH (benign prostatic hyperplasia) (12) Status post right hip replacement TOLU PENA DO Aug 25, 2019 21:33
[2019-08-26] VITALS (7 sets, daily range): BP systolic 93–131; BP diastolic 60–73
[2019-08-26 05:48] LABS: MEAN PLATELET VOLUME 8.4 FL (7.4-10.4); RED CELL DISTRIBUTION WIDTH 13.2 % (10.0-14.5); WHITE BLOOD COUNT 7.7 10^3/uL (4.3-11.0)
[2019-08-26 06:00] LABS: CREATININE SERUM 0.88 MG/DL (0.60-1.30)
[2019-08-26] MEDS: FERROUS SULF 325 MG (IRON) TAB PO SCH ×2 (06:09→17:17)
[2019-08-26] MEDS: metFORMIN 500 MG (GLUCOPHAGE) TAB PO SCH ×2 (06:09→17:18)
[2019-08-26] MEDS: inSUlin ASPART (NovoLOG) 1 UNIT/0.01 ML (CHARGE PER UNIT) SC SCH ×4 (06:26→22:34)
[2019-08-26] MEDS: FINASTERIDE (PROSCAR) 5 MG TAB PO SCH (09:05)
[2019-08-26] MEDS: GABAPENTIN 300 MG (NEURONTIN) CAP PO SCH ×2 (09:05→12:12)
[2019-08-26] MEDS: IBUPROFEN 600 MG (MOTRIN) TAB PO SCH (09:05)
[2019-08-26] MEDS: APIXABAN 5 MG (ELIQUIS) TABLET PO SCH ×2 (09:05→20:31)
[2019-08-26] MEDS: POLYETHYLENE GLYCOL 17 GM (MIRALAX) PACK PO SCH ×2 (09:06→20:31)
[2019-08-26] MEDS: DOCUSATE SODIUM 100 MG (COLACE) CAP PO SCH (09:06)
[2019-08-26] MEDS: SENNA W/DOCUSATE (SENOKOT S) TABLET PO SCH ×2 (09:06→20:31)
[2019-08-26] MEDS: meTOprolol TARTRATE 50 MG (LOPRESSOR) TAB PO SCH (09:07)
[2019-08-26] MEDS: CYANOCOBALAMIN 1,000 MCG (VITAMIN B-12) TABLET PO SCH (09:08)
[2019-08-26] MEDS: EMPAGLIFLOZIN 25 MG TAB PO SCH (09:18)
--- NOTE | 2019-08-26 09:22 | NUR ---
PT checked orthostatic B/P's, Dr. Ramirez in to see ptKatherine held.
[2019-08-26] MEDS: DIGOXIN 0.125 MG (LANOXIN) TAB PO SCH (09:28)
--- NOTE | 2019-08-26 09:57 | Physical Therapy Daily Note ---
PT Daily Note-Current Subjective Patient in bathroom pre tx, agrees to PT with max encouragement, patient doesn't want to participate because he says he has had low blood pressure and is dizzy and has fallen in the shower yesterday. Patient ambulates a short distance back to his bed and gets dressed with max assist for lowers and SBA for shirt. Reginaldo tobar states he has significant pain and gets his morning meds from nurse. Patient has had BP issues and they are measured at this time. Seated 93/60, stand 97/64, seated 120/73, stand 98/66, stand 110/69, stand 94/56, stand 103/63, stand 100/53. Patient states he is still dizzy and seeing stars. Ambulation will not be performed and will go to the gym in . Appearance Patient BTB post tx with nurse call, phone, tray,all needs met. Mental Status Patient Orientation: Normal For Age Transfers SCALE: Activities may be completed with or without assistive devices. 5-Zmoczicrkl-aecdmpd completes the activity by him/herself with no assistance from a helper. 5-Set-up or Clean-up Assistance-helper sets up or cleans up; patient completes activity. [place] assists only prior to or following the activity. 4-Supervision or Touching Assistance-helper provides verbal cues and/or touching/steadying and/or contact guard assistance as patient completes activity. Assistance may be provided throughout the activity or intermittently. 3-Partial/Moderate Assistance-helper does LESS THAN HALF the effort. [place] lifts, holds or supports trunk or limbs, but provides less than half the effort. 2-Substantial/Maximal Assistance-helper does MORE THAN HALF the effort. [place] lifts or holds trunk or limbs and provides more than half the effort. 7-Zsnzdabus-omldlv does ALL the effort. Patient does none of the effort to complete the activity. Or, the assistance of 2 or more helpers is required for the patient to complete the activity. If activity was not attempted, code reason: 7-Patient Refused. 9-Not Applicable-not attempted and the patient did not perform the activity before the current illness, exacerbation or injury. 10-Not Attempted due to Environmental Limitations-(lack of equipment, weather restraints, etc.). 88-Not Attempted due to Medical Conditions or Safety Concerns. Roll Left & Right (QC): 6 Sit to Lying (QC): 3 Lying to Sitting/Side of Bed(Q: 3 Sit to Stand (QC): 4 Chair/Cqq-wp-Tnkga Xfer(QC): 4 CGA for transfers but it is difficult for patient because he is reluctant to bear weight through his right leg. Weight Bearing Right Lower Extremity: Right Weight Bearing/Tolerated Left Lower Extremity: Left Full Weight Bearing Exercises NuStep Minutes: 15 NuStep Workload: 4 Treatments dressing, ambulation, bed mobility and transfers, LE exercise Assessment Current Status: Poor Progress no ambulation due to dizziness and BP issues PT Short Term Goals Short Term Goals Time Frame: Sep 01, 2019 Roll Left & Right: 4 Sit to lyin Lying to sitting on side of be: 4 Sit to stand: 3 Walk 10 feet: 3 PT Teacher Aide Clerical Goals Teacher Aide Clerical Goals PT Mcfp Goals Time Frame: Sep 15, 2019 Roll Left & Right (QC): 6 Sit to Lying (QC): 6 Lying-Sitting on Side/Bed(QC): 6 Sit to Stand (QC): 6 Chair/Eia-dp-Orxnd Xfer(QC): 6 Toilet Transfer (QC): 6 Car Transfer (QC): 4 Does the Patient Walk: No and Walking Goal IS indicated Walk 10 feet (QC): 5 Walk 50ft with 2 Turns (QC): 9 Walk 150 ft (QC): 9 Walking 10ft on Uneven Surface: 9 1 Step (curb) (QC): 9 4 Steps (QC): 9 12 Steps (QC): 9 Picking up an Object (QC): 9 Does the Pt use WC or Scooter?: Yes Wheel 50 feet with 2 turns (QC: 6 Type: Motorized Wheel 150 feet: 6 Type: Motorized PT Plan Problem List Problem List: Activity Tolerance, Functional Strength, Safety, Balance, Gait, Transfer, Bed Mobility, ROM Treatment/Plan Treatment Plan: Continue Plan of Care Treatment Plan: Bed Mobility, Education, Functional Activity Yifan, Functional Strength, Group Therapy, Gait, Safety, Therapeutic Exercise, Transfers Treatment Duration: Sep 15, 2019 Frequency: At least 5 of 7 days/Wk (IRF) Estimated Hrs Per Day: 1.5 hours per day Patient and/or Family Agrees t: Yes Safety Risks/Education Patient Education: Gait Training, Transfer Techniques, Correct Positioning, Safety Issues Teaching Recipient: Patient Teaching Methods: Demonstration, Discussion Response to Teaching: Reinforcement Needed Time/GCodes Time In: 0900 Time Out: 1000 Total Billed Treatment Time: 60 Total Billed Treatment 1 visit EX 15' FA 45' CAMPOS MARTINEZ PT Aug 26, 2019 09:57
[2019-08-26] MEDS ORDERED: NS (IVPB) 250 ML IV ONE (10:00)
--- NOTE | 2019-08-26 10:18 | PM&R Progress Note ---
Subjective HPI/CC On Admission Date Seen by Provider: Aug 26, 2019 Time Seen by Provider: 09:00 Subjective/Events-last exam Pt still having difficulties. Weakness with hypotension noted but systolic did not get down to 60. Does not use his CPAP machine. Dr. Oro will address BP medications. Baclofen required of 5 Mg Q6HRs so will try that. Overall very difficult to navigate and high-risk for falls with orthostasis. Reviewed meds and labs Conferred with RN Reviewed therapy notes Review of Systems Musculoskeletal: back pain, leg pain Objective Exam Vital Signs Vital Signs Date Time Temp Pulse Resp B/P (MAP) Pulse Ox O2 Delivery O2 Flow Rate FiO2 08/27/19 06:15 37.1 109 20 124/67 (86) 99 Room Air 08/26/19 23:37 2.00 Capillary Refill : General Appearance: No Apparent Distress, WD/WN, Chronically ill, Obese HEENT: PERRL/EOMI, Normal ENT Inspection, Pharynx Normal Neck: Full Range of Motion, Normal Inspection, Non Tender, Supple, Carotid Bruit Respiratory: Chest Non Tender, Normal Breath Sounds, No Accessory Muscle Use, No Respiratory Distress, Decreased Breath Sounds Cardiovascular: Regular Rate, Rhythm, No Gallop, No JVD, No Murmur, Normal Peripheral Pulses Gastrointestinal: Normal Bowel Sounds, No Organomegaly, No Pulsatile Mass, Non Tender, Soft Back: Normal Inspection, No CVA Tenderness, No Vertebral Tenderness Extremity: Normal Capillary Refill, Normal Inspection, Normal Range of Motion, Non Tender, No Calf Tenderness, Pedal Edema Neurologic/Psychiatric: Alert, Oriented x3, No Motor/Sensory Deficits (decreased in legs), 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 FIM Transfers Therapy Code Descriptions/Definitions Functional [place] Measure: 0=Not Assessed/NA 4=Minimal Assistance 1=Total Assistance 5=Supervision or Setup 2=Maximal Assistance 6=Modified [place] 3=Moderate Assistance 7=Complete IndependenceSCALE: Activities may be completed with or without assistive devices. 8-Inglfdhxea-kjtvvog completes the activity by him/herself with no assistance from a helper. 5-Set-up or Clean-up Assistance-helper sets up or cleans up; patient completes activity. [place] assists only prior to or following the activity. 4-Supervision or Touching Assistance-helper provides verbal cues and/or touching/steadying and/or contact guard assistance as patient completes activity. Assistance may be provided throughout the activity or intermittently. 3-Partial/Moderate Assistance-helper does LESS THAN HALF the effort. [place] lifts, holds or supports trunk or limbs, but provides less than half the effort. 2-Substantial/Maximal Assistance-helper does MORE THAN HALF the effort. [place] lifts or holds trunk or limbs and provides more than half the effort. 6-Lsxqroluz-ghcffq does ALL the effort. Patient does none of the effort to complete the activity. Or, the assistance of 2 or more helpers is required for the patient to complete the activity. If activity was not attempted, code reason: 7-Patient Refused. 9-Not Applicable-not attempted and the patient did not perform the activity before the current illness, exacerbation or injury. 10-Not Attempted due to Environmental Limitations-(lack of equipment, weather restraints, etc.). 88-Not Attempted due to Medical Conditions or Safety Concerns. Roll Left to Right (QC): 6 Sit to Lying (QC): 3 Sit to Stand (QC): 4 Chair/Ewk-yu-Agigj Xfer(QC): 4 Car Transfer (QC): 2 (max assist to complete. ) Gait Training Does the Patient Walk?: Yes Distance: 150' x 2 Walk 10 feet (QC): 5 Walk 50 ft with 2 Turns(QC): 5 Walk 150 ft (QC): 5 Walking 10ft/uneven surface-QC: 88 Gait Persons Needed: 1 Gait Assistive Device: FWW Wheelchair Training Does the Pt Use a Wheelchair?: Yes Wheel 50 ft with 2 turns (QC): 6 Wheel 150 ft (QC): 6 Type of Wheelchair: Motorized Stair Training 1 Step (curb) (QC): 88 4 Steps (QC): 88 12 Steps (QC): 88 Balance Picking up an Object (QC): 88 ADL-Treatment Eating (QC): 6 Oral Hygiene (QC): 4 Shower/Bathe Self (QC): 4 Upper Body Dressing (QC): 5 Lower Body Dressing (QC): 4 (Footwear (QC) 5) On/Off Footwear (QC): 1 (Pt required total assist with task) Toileting Hygiene (QC): 4 (Supervision using FWW and grabbars.) Toilet Transfer (QC): 4 (Supervision using FWW and grabbars.) Assessment/Plan Assessment and Plan Assess & Plan/Chief Complaint Assessment: Status post uncomplicated right hip replacement Atrial fibrillation CAD Alcoholism Hypertension Diabetes mellitus Hypoglycemic episode Debility chronic Anemia Hypokalemia Hypotension now resolved after IVF so will heplock s/p non-injury fall Plan: Inpatient rehab protocol Monitor potassium Supplement potassium Appreciate cardiology Monitor blood sugar and blood pressure Fall risk Orthostasis poses fall risk (1) Debility (2) CAD (coronary artery disease) (3) Diabetes mellitus (4) Pacemaker (5) Atrial fibrillation (6) IBS (irritable bowel syndrome) (7) KRAIG (obstructive sleep apnea) (8) Hypertension (9) Hyperlipemia (10) Depression (11) BPH (benign prostatic hyperplasia) (12) Status post right hip replacement TOLU PENA DO Aug 26, 2019 10:18
[2019-08-26 10:31] LABS: BUN/CREATININE RATIO 15; CALCIUM 8.2 MG/DL (8.5-10.1); CARBON DIOXIDE 25 MMOL/L (21-32); CHLORIDE 98 MMOL/L (98-107); CREATININE SERUM 0.86 MG/DL (0.60-1.30); GFR ESTIMATED > 60; GLUCOSE 90 MG/DL (70-105); POTASSIUM 4.1 MMOL/L (3.6-5.0); SODIUM 135 MMOL/L (135-145)
[2019-08-26] MEDS ORDERED: DILTIAZEM 180 MG (CARDIZEM CD) CAP PO NR (11:19)
[2019-08-26] MEDS ORDERED: DIGOXIN 0.125 MG (LANOXIN) TAB PO NR (11:20)
--- NOTE | 2019-08-26 12:58 | Occupational Ther Daily Note ---
OT Current Status-Daily Note Subjective Pt alert, lying in bed. Pt required encouragement to participate in therapy. Pt agrees to therapy. Pt c/o pain in R groin. Mental Status/Objective Patient Orientation: Person, Place, Time, Situation Attachments: IV ADL-Treatment Therapy Code Descriptions/Definitions Functional [place] Measure: 0=Not Assessed/NA 4=Minimal Assistance 1=Total Assistance 5=Supervision or Setup 2=Maximal Assistance 6=Modified [place] 3=Moderate Assistance 7=Complete IndependenceSCALE: Activities may be completed with or without assistive devices. 4-Bhokvzfkcr-zbzjhhg completes the activity by him/herself with no assistance from a helper. 5-Set-up or Clean-up Assistance-helper sets up or cleans up; patient completes activity. [place] assists only prior to or following the activity. 4-Supervision or Touching Assistance-helper provides verbal cues and/or touching/steadying and/or contact guard assistance as patient completes activity. Assistance may be provided throughout the activity or intermittently. 3-Partial/Moderate Assistance-helper does LESS THAN HALF the effort. [place] lifts, holds or supports trunk or limbs, but provides less than half the effort. 2-Substantial/Maximal Assistance-helper does MORE THAN HALF the effort. [place] lifts or holds trunk or limbs and provides more than half the effort. 4-Gbcpexnoi-xcgkba does ALL the effort. Patient does none of the effort to complete the activity. Or, the assistance of 2 or more helpers is required for the patient to complete the activity. If activity was not attempted, code reason: 7-Patient Refused. 9-Not Applicable-not attempted and the patient did not perform the activity before the current illness, exacerbation or injury. 10-Not Attempted due to Environmental Limitations-(lack of equipment, weather restraints, etc.). 88-Not Attempted due to Medical Conditions or Safety Concerns. Other Treatment Due to pt's drop in BP when standing today, pt propelled w/c to/from therapy gym. Arm bike for 15 min duration at 15 long resistance to increase strength and activity tolerance for daily functional tasks. 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 After therapy, pt sitting in w/c with call light/phone in reach. All needs met in room. OT Short Term Goals Short Term Goals Time Frame: Aug 27, 2019 OT Fpc Goals Fpc Goals Time Frame: Sep 03, 2019 Eating (QC): 6 Oral Hygiene (QC): 6 Toileting Hygiene (QC): 6 Shower/Bathe Self (QC): 6 Upper Body Dressing (QC): 6 Lower Body Dressing (QC): 6 On/Off Footwear (QC): 6 Additional Goals: 1-Demonstrate ADL Tasks, 2-Verbalize Understanding, 3- ImproveStrength/Yifan 1=Demonstrate adherence to instructed precautions during ADL tasks. 2=Patient will verbalize/demonstrate understanding of assistive devices/modifications for ADL. 3=Patient will improve strength/tolerance for activity to enable patient to perform ADL's. OT Education/Plan Problem List/Assessment Assessment: Decreased Activ Tolerance, Decreased UE Strength, Impaired Coordination, Impaired Funct Balance, Impaired Self-Care Skills Discharge Recommendations Plan/Recommendations: Continue POC Treatment Plan/Plan of Care Patient would benefit from OT for education, treatment and training to promote independence in ADL's, mobility, safety and/or upper extremity function for ADL's. Plan of Care: ADL Retraining, Caregiver Training, Functional Mobility, Group Exercise/Act as Ind, UE Funct Exercise/Act Treatment Duration: Sep 03, 2019 Frequency: At least 5 of 7 days/Wk (IRF) Estimated Hrs Per Day: 1.5 hours per day Agreement: Yes Rehab Potential: Good Time/GCodes Start Time: 11:00 Stop Time: 12:00 Total Time Billed (hr/min): 60 Billed Treatment Time 1 visit-EX 4 (60 min) ELEAZAR ESCOBEDO Aug 26, 2019 12:58
--- NOTE | 2019-08-26 13:52 | NUR ---
Call to Dr. Oro's office, to speak w ROBBIE Guzman, given pager #, & paged, to verify new orders.
--- NOTE | 2019-08-26 14:40 | Occupational Ther Daily Note ---
OT Current Status-Daily Note Subjective Pt seated upright in wheelchair at start of session, agreeable to OT tx. He did not verbalize any pain. ADL-Treatment Therapy Code Descriptions/Definitions Functional [place] Measure: 0=Not Assessed/NA 4=Minimal Assistance 1=Total Assistance 5=Supervision or Setup 2=Maximal Assistance 6=Modified [place] 3=Moderate Assistance 7=Complete IndependenceSCALE: Activities may be completed with or without assistive devices. 7-Pkhomebiko-pbqiokv completes the activity by him/herself with no assistance from a helper. 5-Set-up or Clean-up Assistance-helper sets up or cleans up; patient completes activity. [place] assists only prior to or following the activity. 4-Supervision or Touching Assistance-helper provides verbal cues and/or touching/steadying and/or contact guard assistance as patient completes activity. Assistance may be provided throughout the activity or intermittently. 3-Partial/Moderate Assistance-helper does LESS THAN HALF the effort. [place] lifts, holds or supports trunk or limbs, but provides less than half the effort. 2-Substantial/Maximal Assistance-helper does MORE THAN HALF the effort. [place] lifts or holds trunk or limbs and provides more than half the effort. 5-Uzhecepve-rdhxrs does ALL the effort. Patient does none of the effort to complete the activity. Or, the assistance of 2 or more helpers is required for the patient to complete the activity. If activity was not attempted, code reason: 7-Patient Refused. 9-Not Applicable-not attempted and the patient did not perform the activity before the current illness, exacerbation or injury. 10-Not Attempted due to Environmental Limitations-(lack of equipment, weather restraints, etc.). 88-Not Attempted due to Medical Conditions or Safety Concerns. Other Treatment Pt performed functional activity with 2lb wrist cuffs on BUEs. Pt took a deck of cards and placed each in designated area in order to increase BUE strength, fine motor coordination, functional endurance with tasks and in hand manipulation skills Pt completed this functional activity [id number], with min rest breaks. Post OT session, pt seated upright in recliner, call light in reach and all needs met. Education OT Patient Education: Correct positioning, Energy conservation, Exercise program, Progress toward Goal/Update tx plan, Purpose of tx/functional activities Teaching Recipient: Patient Teaching Methods: Demonstration, Discussion Response to Teaching: Verbalize Understanding, Return Demonstration OT Short Term Goals Short Term Goals Time Frame: Aug 27, 2019 OT Wrapping Machine Tender Goals Detention Goals Time Frame: Sep 03, 2019 Eating (QC): 6 Oral Hygiene (QC): 6 Toileting Hygiene (QC): 6 Shower/Bathe Self (QC): 6 Upper Body Dressing (QC): 6 Lower Body Dressing (QC): 6 On/Off Footwear (QC): 6 Additional Goals: 1-Demonstrate ADL Tasks, 2-Verbalize Understanding, 3- ImproveStrength/Yifan 1=Demonstrate adherence to instructed precautions during ADL tasks. 2=Patient will verbalize/demonstrate understanding of assistive devices/mo difications for ADL. 3=Patient will improve strength/tolerance for activity to enable patient to perform ADL's. OT Education/Plan Problem List/Assessment Assessment: Decreased Activ Tolerance, Decreased UE Strength, Impaired I ADL's, Impaired Self-Care Skills Discharge Recommendations Plan/Recommendations: Continue POC Treatment Plan/Plan of Care Patient would benefit from OT for education, treatment and training to promote independence in ADL's, mobility, safety and/or upper extremity function for ADL's. Plan of Care: ADL Retraining, Caregiver Training, Functional Mobility, Group Exercise/Act as Ind, UE Funct Exercise/Act Treatment Duration: Sep 03, 2019 Frequency: At least 5 of 7 days/Wk (IRF) Estimated Hrs Per Day: 1.5 hours per day Agreement: Yes Rehab Potential: Good Time/GCodes Start Time: 14:00 Stop Time: 14:30 Total Time Billed (hr/min): 30 Billed Treatment Time 1, FA 2 INDIGO PERDOMO OT Aug 26, 2019 14:40
[2019-08-26] MEDS ORDERED: IBUPROFEN 600 MG (MOTRIN) TAB PO PRN (15:30)
--- NOTE | 2019-08-26 15:42 | NUR ---
Call back to Dr. Oro's office for them to leave note for Megan, as hasn't returned call yet. RN wanted to confirm new meds, see current v/s. Also call placed to Pharmacy & asked if they could profile baclofen, as pt wants to take it.
[2019-08-26] MEDS: BACLOFEN 10 MG (LIORESAL) TAB PO PRN ×2 (15:52→20:30)
--- NOTE | 2019-08-26 16:05 | NUR ---
"RD ASSESSMENT PMHx: COPD; afib; CAD; hypercholesterolemia; HTN; chronic constipation; DM PT INTERACTION: Pt was awake and pleasant during nutrition follow-up. Pt states eating well since last assessment. Note pt avg PO intake of 100% x2d, per chart review. Pt states some recent issues with nausea on 08/25, but that have since resolved. Pt states recent issues with constipation and that his last BM was 08/26. Note pt currently on bowel regimen of colace qd; miralax BID; and senna BID, per chart review. ABNORMAL NUTRITION-RELATED LAB VALUES LOW: Pro 6.2; Na 134; Cl 96 HIGH: glu 139; bili 1.8; AST 46; alkphos 245 Est. kcal needs: 4592-7928 kcal | 20-25 kcal/kg Est. Pro needs: 83-105 g Pro | 0.8-1.0 g Pro/kg PES STATEMENT: Given pt's PO intake, no nutrition needs at this time (NO-1.1) INTERVENTION: Continue with current diet order of CHO 60g/m 3snack diet. Will continue to follow and reassess as pt needs and status change. MONITOR/EVALUATE: PO Intake; Plan of Care; Hydration Status; Weight Status; Lab Values Ashutosh Page, MS, RD, LD"
[2019-08-26] MEDS: NS IV 1000 ML 1,000 ML IV SCH ×2 (16:13→20:32)
[2019-08-26] MEDS ORDERED: NS IV 500 ML 500 ML ONE (16:16)
--- NOTE | 2019-08-26 16:20 | Physical Therapy Daily Note ---
PT Daily Note-Current Subjective Pt sitting in W/C upon arrival. Pt requests to return to bed. Pain Numeric Pain Scale: 10-Worst Possible Pain Location: Right, Medial Location Body Site: Thigh Pain Description: Ache Mental Status Patient Orientation: Person, Place, Situation Transfers SCALE: Activities may be completed with or without assistive devices. 1-Cwzdvdxtmf-wvpkdmw completes the activity by him/herself with no assistance from a helper. 5-Set-up or Clean-up Assistance-helper sets up or cleans up; patient completes activity. [place] assists only prior to or following the activity. 4-Supervision or Touching Assistance-helper provides verbal cues and/or touching/steadying and/or contact guard assistance as patient completes activity. Assistance may be provided throughout the activity or intermittently. 3-Partial/Moderate Assistance-helper does LESS THAN HALF the effort. [place] lifts, holds or supports trunk or limbs, but provides less than half the effort. 2-Substantial/Maximal Assistance-helper does MORE THAN HALF the effort. [place] lifts or holds trunk or limbs and provides more than half the effort. 1-Bugdgsyvz-zlgjst does ALL the effort. Patient does none of the effort to complete the activity. Or, the assistance of 2 or more helpers is required for the patient to complete the activity. If activity was not attempted, code reason: 7-Patient Refused. 9-Not Applicable-not attempted and the patient did not perform the activity before the current illness, exacerbation or injury. 10-Not Attempted due to Environmental Limitations-(lack of equipment, weather restraints, etc.). 88-Not Attempted due to Medical Conditions or Safety Concerns. Sit to Lying (QC): 4 Lying to Sitting/Side of Bed(Q: 4 Sit to Stand (QC): 5 Weight Bearing Right Lower Extremity: Right Weight Bearing/Tolerated Left Lower Extremity: Left Full Weight Bearing Exercises Supine Ex: Ankle pumps, Quad Set, Glut sets, Heel Slides, Straight leg raise, Hip abd/add Supine Reps: 15 Treatments Pt transfers from W/C to EOB to Supine with [employer] assist to lift B LE into bed. Pt completes Supine Ex in bed with encouragement from family and [employer]. Pt resting at end of Rx with all needs met, call light next to pt. Assessment Current Status: Fair Progress Pt self limits and needs encouragement to push self during Rx. PT Short Term Goals Short Term Goals Time Frame: Sep 01, 2019 Roll Left & Right: 4 Sit to lyin Lying to sitting on side of be: 4 Sit to stand: 3 Walk 10 feet: 3 PT Senior Living Goals Senior Living Goals PT Senior Living Goals Time Frame: Sep 15, 2019 Roll Left & Right (QC): 6 Sit to Lying (QC): 6 Lying-Sitting on Side/Bed(QC): 6 Sit to Stand (QC): 6 Chair/Buf-tg-Elscm Xfer(QC): 6 Toilet Transfer (QC): 6 Car Transfer (QC): 4 Does the Patient Walk: No and Walking Goal IS indicated Walk 10 feet (QC): 5 Walk 50ft with 2 Turns (QC): 9 Walk 150 ft (QC): 9 Walking 10ft on Uneven Surface: 9 1 Step (curb) (QC): 9 4 Steps (QC): 9 12 Steps (QC): 9 Picking up an Object (QC): 9 Does the Pt use WC or Scooter?: Yes Wheel 50 feet with 2 turns (QC: 6 Type: Motorized Wheel 150 feet: 6 Type: Motorized PT Plan Problem List Problem List: Activity Tolerance, Functional Strength, Safety, Balance, Gait, Transfer Treatment/Plan Treatment Plan: Continue Plan of Care Treatment Plan: Bed Mobility, Education, Functional Activity Yifan, Functional Strength, Group Therapy, Gait, Safety, Therapeutic Exercise, Transfers Treatment Duration: Sep 15, 2019 Frequency: At least 5 of 7 days/Wk (IRF) Estimated Hrs Per Day: 1.5 hours per day Patient and/or Family Agrees t: Yes Safety Risks/Education Patient Education: Transfer Techniques, Correct Positioning, Safety Issues Teaching Recipient: Patient Teaching Methods: Discussion Response to Teaching: Verbalize Understanding Time/GCodes Time In: 1430 Time Out: 1500 Total Billed Treatment Time: 30 Total Billed Treatment 1, EX x2 (30m) LYNN TORREZ PTA Aug 26, 2019 16:20
--- NOTE | 2019-08-26 17:05 | NUR ---
Weekly Team Conference Reviewed weekly team conference summary with patient, including target discharge of 09/02/19. Patient is in agreement to discharge back to his home on that date, there will need to be some prearrangements to accommodate this. Met with patient's DPOA/ASTER Clif Capellan and (patient's daughter) Manjeet. They are also in agreement to the discharge on 09/02/19. Clif and Manjeet will be flying back to [place] on . They will prepare patient's home, including getting groceries stocked. They confirmed they have people who will transport patient home at discharge. HHC: Set up for RN, PT, OT. IN-HOME Services: Resume with established agency. PCP: Will need followup appointment with [facility]. Continue intermittent review, observation during therapy, and discharge planning.
--- NOTE | 2019-08-26 18:05 | NUR ---
Notified Dr. Simon, of earlier orders for Cardizem, but, that pt had decreased B/P this morning. Rec'd orders to hold the Cardizem from Dr. Simon at this time. This RN had paged Dr. Oro, & Megan Reyes pagers several times, but, did not receive a call back, along w calling the office twice. Notified Dr. Ramirez when she came to unit to see new admit, she stated that she believed Dr. Simon was soil conservation aide.
[2019-08-26] MEDS: GABAPENTIN 400 MG (NEURONTIN) CAP PO SCH (20:30)
[2019-08-27] MEDS: NS IV 1000 ML 1,000 ML IV SCH ×2 (02:51→19:32)
[2019-08-27] MEDS: inSUlin ASPART (NovoLOG) 1 UNIT/0.01 ML (CHARGE PER UNIT) SC SCH ×4 (05:42→20:50)
[2019-08-27] MEDS: FERROUS SULF 325 MG (IRON) TAB PO SCH ×2 (05:46→17:30)
[2019-08-27] MEDS: metFORMIN 500 MG (GLUCOPHAGE) TAB PO SCH ×2 (05:46→17:30)
[2019-08-27] MEDS: BACLOFEN 10 MG (LIORESAL) TAB PO PRN (05:46)
[2019-08-27 06:15] VITALS: BP 124/67
[2019-08-27 08:22] VITALS: BP 134/70
[2019-08-27] MEDS: GABAPENTIN 300 MG (NEURONTIN) CAP PO SCH ×2 (08:27→11:45)
--- NOTE | 2019-08-27 08:27 | Occupational Ther Daily Note ---
OT Current Status-Daily Note Subjective Pt alert, sitting in bathroom. Pt agrees to therapy, but states he is to warn out to do any therapy after toileting. Pt c/o pain all over, nrsg in room. Mental Status/Objective Patient Orientation: Person, Place, Time, Situation Attachments: IV ADL-Treatment Therapy Code Descriptions/Definitions Functional [place] Measure: 0=Not Assessed/NA 4=Minimal Assistance 1=Total Assistance 5=Supervision or Setup 2=Maximal Assistance 6=Modified [place] 3=Moderate Assistance 7=Complete IndependenceSCALE: Activities may be completed with or without assistive devices. 3-Jbwyqfnoss-xooalmq completes the activity by him/herself with no assistance from a helper. 5-Set-up or Clean-up Assistance-helper sets up or cleans up; patient completes activity. [place] assists only prior to or following the activity. 4-Supervision or Touching Assistance-helper provides verbal cues and/or touching/steadying and/or contact guard assistance as patient completes activity. Assistance may be provided throughout the activity or intermittently. 3-Partial/Moderate Assistance-helper does LESS THAN HALF the effort. [place] lifts, holds or supports trunk or limbs, but provides less than half the effort. 2-Substantial/Maximal Assistance-helper does MORE THAN HALF the effort. [place] lifts or holds trunk or limbs and provides more than half the effort. 7-Rpqkqmxum-sizjzv does ALL the effort. Patient does none of the effort to complete the activity. Or, the assistance of 2 or more helpers is required for the patient to complete the activity. If activity was not attempted, code reason: 7-Patient Refused. 9-Not Applicable-not attempted and the patient did not perform the activity before the current illness, exacerbation or injury. 10-Not Attempted due to Environmental Limitations-(lack of equipment, weather restraints, etc.). 88-Not Attempted due to Medical Conditions or Safety Concerns. Toileting Hygiene (QC): 4 (CGA in standing to complete hygiene and clothing manipulation.) Toilet Transfer (QC): 4 (CGA for transfer using FWW and grabbars.) Pt was able to stand at sink to cleanse hands. Leaning on sink for stability. Min A with LE's to get back into bed. Call light/phone in reach. All needs met in room. Nrsg in room. OT Short Term Goals Short Term Goals Time Frame: Aug 27, 2019 OT Pot Pusher Goals Intermediate Goals Time Frame: Sep 03, 2019 Eating (QC): 6 Oral Hygiene (QC): 6 Toileting Hygiene (QC): 6 Shower/Bathe Self (QC): 6 Upper Body Dressing (QC): 6 Lower Body Dressing (QC): 6 On/Off Footwear (QC): 6 Additional Goals: 1-Demonstrate ADL Tasks, 2-Verbalize Understanding, 3- ImproveStrength/Yifan 1=Demonstrate adherence to instructed precautions during ADL tasks. 2=Patient will verbalize/demonstrate understanding of assistive devices/modif ications for ADL. 3=Patient will improve strength/tolerance for activity to enable patient to perform ADL's. OT Education/Plan Problem List/Assessment Assessment: Decreased Activ Tolerance, Impaired Funct Balance, Impaired Self- Care Skills Discharge Recommendations Plan/Recommendations: Continue POC Treatment Plan/Plan of Care Patient would benefit from OT for education, treatment and training to promote independence in ADL's, mobility, safety and/or upper extremity function for ADL's. Plan of Care: ADL Retraining, Caregiver Training, Functional Mobility, Group Exercise/Act as Ind, UE Funct Exercise/Act Treatment Duration: Sep 03, 2019 Frequency: At least 5 of 7 days/Wk (IRF) Estimated Hrs Per Day: 1.5 hours per day Agreement: Yes Rehab Potential: Good Time/GCodes Start Time: 08:02 Stop Time: 08:25 Total Time Billed (hr/min): 23 Billed Treatment Time 1 visit-ADL 2 (23 min) ELEAZAR ESCOBEDO Aug 27, 2019 08:27
[2019-08-27] MEDS: FINASTERIDE (PROSCAR) 5 MG TAB PO SCH (08:28)
[2019-08-27] MEDS: DIGOXIN 0.25 MG (LANOXIN) TAB PO SCH (08:28)
[2019-08-27] MEDS: APIXABAN 5 MG (ELIQUIS) TABLET PO SCH ×2 (08:28→20:19)
[2019-08-27] MEDS: CYANOCOBALAMIN 1,000 MCG (VITAMIN B-12) TABLET PO SCH (08:30)
[2019-08-27] MEDS: SENNA W/DOCUSATE (SENOKOT S) TABLET PO SCH ×2 (08:31→20:19)
[2019-08-27] MEDS: DOCUSATE SODIUM 100 MG (COLACE) CAP PO SCH (08:31)
[2019-08-27] MEDS: POLYETHYLENE GLYCOL 17 GM (MIRALAX) PACK PO SCH ×2 (08:31→20:19)
[2019-08-27] MEDS: EMPAGLIFLOZIN 25 MG TAB PO SCH (08:34)
[2019-08-27] MEDS ORDERED: DILTIAZEM 180 MG (CARDIZEM CD) CAP PO SCH (09:00)
--- NOTE | 2019-08-27 09:55 | Physical Therapy Daily Note ---
PT Daily Note-Current Subjective Patient in bed pre tx, agrees to PT, has 9/10 pain in right leg. Patient's BP sitting is 126/77, standing 95/61, 117/65, 111/67. Appearance Patient BTB post tx with nurse call, phone, tray, all needs met. Mental Status Patient Orientation: Person, Place, Situation Attachments: IV Transfers SCALE: Activities may be completed with or without assistive devices. 0-Ipleanneil-wynjlfb completes the activity by him/herself with no assistance from a helper. 5-Set-up or Clean-up Assistance-helper sets up or cleans up; patient completes activity. [place] assists only prior to or following the activity. 4-Supervision or Touching Assistance-helper provides verbal cues and/or touching/steadying and/or contact guard assistance as patient completes activity. Assistance may be provided throughout the activity or intermittently. 3-Partial/Moderate Assistance-helper does LESS THAN HALF the effort. [place] lifts, holds or supports trunk or limbs, but provides less than half the effort. 2-Substantial/Maximal Assistance-helper does MORE THAN HALF the effort. [place] lifts or holds trunk or limbs and provides more than half the effort. 8-Yyzfhgpmk-kdiquu does ALL the effort. Patient does none of the effort to complete the activity. Or, the assistance of 2 or more helpers is required for the patient to complete the activity. If activity was not attempted, code reason: 7-Patient Refused. 9-Not Applicable-not attempted and the patient did not perform the activity before the current illness, exacerbation or injury. 10-Not Attempted due to Environmental Limitations-(lack of equipment, weather restraints, etc.). 88-Not Attempted due to Medical Conditions or Safety Concerns. Roll Left & Right (QC): 3 Sit to Lying (QC): 3 Lying to Sitting/Side of Bed(Q: 3 Sit to Stand (QC): 4 Chair/Scg-xq-Brbvc Xfer(QC): 4 Min assist for supine <-> sit, CGA for sit <-> stand and transfers. Patient needs to stand for a while before ambulating to let his BP adjust. Weight Bearing Right Lower Extremity: Right Weight Bearing/Tolerated Left Lower Extremity: Left Full Weight Bearing Gait Training Distance: 75'x4 Walk 10 feet (QC): 4 Walk 50 ft with 2 Turns(QC): 4 Gait Persons Needed: 1 Gait Assistive Device: FWW CGA, slow, antalgic, does not bear much weight through his right leg, flexed right knee. Treatments bed mobility and transfers, ambulation Assessment Current Status: Fair Progress improved ambulation but patient is always resistant to participating in the morning and needs extra time for encouragement and extra time to measure BP and for rest breaks PT Short Term Goals Short Term Goals Time Frame: Sep 01, 2019 Roll Left & Right: 4 Sit to lyin Lying to sitting on side of be: 4 Sit to stand: 3 Walk 10 feet: 3 PT Literature Professor Goals Intermediate Goals PT Literature Professor Goals Time Frame: Sep 15, 2019 Roll Left & Right (QC): 6 Sit to Lying (QC): 6 Lying-Sitting on Side/Bed(QC): 6 Sit to Stand (QC): 6 Chair/Iuf-ch-Dponu Xfer(QC): 6 Toilet Transfer (QC): 6 Car Transfer (QC): 4 Does the Patient Walk: No and Walking Goal IS indicated Walk 10 feet (QC): 5 Walk 50ft with 2 Turns (QC): 9 Walk 150 ft (QC): 9 Walking 10ft on Uneven Surface: 9 1 Step (curb) (QC): 9 4 Steps (QC): 9 12 Steps (QC): 9 Picking up an Object (QC): 9 Does the Pt use WC or Scooter?: Yes Wheel 50 feet with 2 turns (QC: 6 Type: Motorized Wheel 150 feet: 6 Type: Motorized PT Plan Problem List Problem List: Activity Tolerance, Functional Strength, Safety, Balance, Gait, Transfer, Bed Mobility, ROM Treatment/Plan Treatment Plan: Continue Plan of Care Treatment Plan: Bed Mobility, Education, Functional Activity Yifan, Functional Strength, Group Therapy, Gait, Safety, Therapeutic Exercise, Transfers Treatment Duration: Sep 15, 2019 Frequency: At least 5 of 7 days/Wk (IRF) Estimated Hrs Per Day: 1.5 hours per day Patient and/or Family Agrees t: Yes Safety Risks/Education Patient Education: Gait Training, Transfer Techniques, Correct Positioning, Safety Issues Teaching Recipient: Patient Teaching Methods: Demonstration, Discussion Response to Teaching: Reinforcement Needed Time/GCodes Time In: 900 Time Out: 1000 Total Billed Treatment Time: 60 Total Billed Treatment 1 visit GT 40' FA 20' CAMPOS MARTINEZ PT Aug 27, 2019 09:54
--- NOTE | 2019-08-27 10:25 | Occ Therapy Progress Note ---
Therapy Progress Note Attempted to see pt. Pt stated that he had just got comfortable in bed and did not want to move. OT educated pt on rehab schedule and the need to work with OT. Pt then requested to have BP taken, 114/54. Pt stated that he couldn't get up or he would have spots in his eyes from the low pressure. Will attempt at 1100 1 visit-REF ([phone]) ELEAZAR ESCOBEDO Aug 27, 2019 10:25
--- NOTE | 2019-08-27 10:55 | PM&R Progress Note ---
Subjective HPI/CC On Admission Date Seen by Provider: Aug 27, 2019 Time Seen by Provider: 09:15 Subjective/Events-last exam Somatic complaints continue IV fluid will be done after 24 hours Orthostatic at times, spoke with Dr. Oro about his Cardizem Somatic issues continue Discharge planned for next week Overall very difficult to navigate and high-risk for falls with orthostasis. Reviewed meds and labs Conferred with RN Reviewed therapy notes Review of Systems General: Fatigue, Other (dizziness) Objective Exam Vital Signs Vital Signs Date Time Temp Pulse Resp B/P (MAP) Pulse Ox O2 Delivery O2 Flow Rate FiO2 08/27/19 17:41 36.4 81 20 113/64 (80) 97 Room Air 08/26/19 23:37 2.00 Capillary Refill : General Appearance: No Apparent Distress, WD/WN, Chronically ill, Obese HEENT: PERRL/EOMI, Normal ENT Inspection, Pharynx Normal Neck: Full Range of Motion, Normal Inspection, Non Tender, Supple, Carotid Bruit Respiratory: Chest Non Tender, Normal Breath Sounds, No Accessory Muscle Use, No Respiratory Distress, Decreased Breath Sounds Cardiovascular: Regular Rate, Rhythm, No Gallop, No JVD, No Murmur, Normal Peripheral Pulses Gastrointestinal: Normal Bowel Sounds, No Organomegaly, No Pulsatile Mass, Non Tender, Soft Back: Normal Inspection, No CVA Tenderness, No Vertebral Tenderness Extremity: Normal Capillary Refill, Normal Inspection, Normal Range of Motion, Non Tender, No Calf Tenderness, Pedal Edema Neurologic/Psychiatric: Alert, Oriented x3, No Motor/Sensory Deficits (decreased in legs), Normal Mood/Affect, admissions coordinator II-XII Norm as Tested Skin: Normal Color, Warm/Dry Lymphatic: No Adenopathy Results/Procedures Lab Patient resulted labs reviewed. FIM Transfers Therapy Code Descriptions/Definitions Functional [place] Measure: 0=Not Assessed/NA 4=Minimal Assistance 1=Total Assistance 5=Supervision or Setup 2=Maximal Assistance 6=Modified [place] 3=Moderate Assistance 7=Complete IndependenceSCALE: Activities may be completed with or without assistive devices. 5-Rwxaqjikem-ktayhdm completes the activity by him/herself with no assistance from a helper. 5-Set-up or Clean-up Assistance-helper sets up or cleans up; patient completes activity. [place] assists only prior to or following the activity. 4-Supervision or Touching Assistance-helper provides verbal cues and/or touching/steadying and/or contact guard assistance as patient completes activity. Assistance may be provided throughout the activity or intermittently. 3-Partial/Moderate Assistance-helper does LESS THAN HALF the effort. [place] lifts, holds or supports trunk or limbs, but provides less than half the effort. 2-Substantial/Maximal Assistance-helper does MORE THAN HALF the effort. [place] lifts or holds trunk or limbs and provides more than half the effort. 5-Tjmwpjdzp-uypubk does ALL the effort. Patient does none of the effort to comp lete the activity. Or, the assistance of 2 or more helpers is required for the patient to complete the activity. If activity was not attempted, code reason: 7-Patient Refused. 9-Not Applicable-not attempted and the patient did not perform the activity before the current illness, exacerbation or injury. 10-Not Attempted due to Environmental Limitations-(lack of equipment, weather restraints, etc.). 88-Not Attempted due to Medical Conditions or Safety Concerns. Roll Left to Right (QC): 3 Sit to Lying (QC): 3 Sit to Stand (QC): 4 Chair/Guj-tn-Findh Xfer(QC): 4 Car Transfer (QC): 2 (max assist to complete. ) Gait Training Does the Patient Walk?: Yes Distance: 75'x4 Walk 10 feet (QC): 4 Walk 50 ft with 2 Turns(QC): 4 Walk 150 ft (QC): 5 Walking 10ft/uneven surface-QC: 88 Gait Persons Needed: 1 Gait Assistive Device: FWW Wheelchair Training Does the Pt Use a Wheelchair?: Yes Wheel 50 ft with 2 turns (QC): 6 Wheel 150 ft (QC): 6 Type of Wheelchair: Motorized Stair Training 1 Step (curb) (QC): 88 4 Steps (QC): 88 12 Steps (QC): 88 Balance Picking up an Object (QC): 88 ADL-Treatment Eating (QC): 6 Oral Hygiene (QC): 4 Shower/Bathe Self (QC): 4 Upper Body Dressing (QC): 5 Lower Body Dressing (QC): 4 (Footwear (QC) 5) On/Off Footwear (QC): 1 (Pt required total assist with task) Toileting Hygiene (QC): 4 (CGA in standing to complete hygiene and clothing ma nipulation.) Toilet Transfer (QC): 4 (CGA for transfer using FWW and grabbars.) Assessment/Plan Assessment and Plan Assess & Plan/Chief Complaint Assessment: Status post uncomplicated right hip replacement Atrial fibrillation CAD Alcoholism Hypertension Diabetes mellitus Hypoglycemic episode Debility chronic Anemia Hypokalemia Hypotension now resolved after IVF so will heplock s/p non-injury fall Plan: Inpatient rehab protocol Monitor potassium Supplement potassium Appreciate cardiology Monitor blood sugar and blood pressure Fall risk Orthostasis poses fall risk (1) Debility (2) CAD (coronary artery disease) (3) Diabetes mellitus (4) Pacemaker (5) Atrial fibrillation (6) IBS (irritable bowel syndrome) (7) KRAIG (obstructive sleep apnea) (8) Hypertension (9) Hyperlipemia (10) Depression (11) BPH (benign prostatic hyperplasia) (12) Status post right hip replacement TOLU PENA DO Aug 27, 2019 10:55
--- NOTE | 2019-08-27 11:56 | Occupational Ther Daily Note ---
OT Current Status-Daily Note Subjective Pt alert, lying in bed. Pt required encouragement to participate in therapy. Pt c/o ears ringing, BP 116/74 (supine) 111/64 (sitting), reported to nrsg. Pt c/o pain, just had pain medications. Mental Status/Objective Patient Orientation: Person, Place, Time, Situation ADL-Treatment Pt agrees to shower. Refuses to don any clothing, wants hospital gown stating that when he has to use urinal and get into bed it is just easier. LEW encourage pt to dress again, pt continues to refuse. Min A to assist with R LE into bed. After therapy, pt lying in bed with call light/phone in reach. All needs met in room. Therapy Code Descriptions/Definitions Functional [place] Measure: 0=Not Assessed/NA 4=Minimal Assistance 1=Total Assistance 5=Supervision or Setup 2=Maximal Assistance 6=Modified [place] 3=Moderate Assistance 7=Complete IndependenceSCALE: Activities may be completed with or without assistive devices. 9-Qkoierlsdw-sjovdko completes the activity by him/herself with no assistance from a helper. 5-Set-up or Clean-up Assistance-helper sets up or cleans up; patient completes activity. [place] assists only prior to or following the activity. 4-Supervision or Touching Assistance-helper provides verbal cues and/or touching/steadying and/or contact guard assistance as patient completes activity. Assistance may be provided throughout the activity or intermittently. 3-Partial/Moderate Assistance-helper does LESS THAN HALF the effort. [place] lifts, holds or supports trunk or limbs, but provides less than half the effort. 2-Substantial/Maximal Assistance-helper does MORE THAN HALF the effort. [place] lifts or holds trunk or limbs and provides more than half the effort. 0-Gdrnjkvhs-qctyjq does ALL the effort. Patient does none of the effort to complete the activity. Or, the assistance of 2 or more helpers is required for the patient to complete the activity. If activity was not attempted, code reason: 7-Patient Refused. 9-Not Applicable-not attempted and the patient did not perform the activity before the current illness, exacerbation or injury. 10-Not Attempted due to Environmental Limitations-(lack of equipment, weather restraints, etc.). 88-Not Attempted due to Medical Conditions or Safety Concerns. Oral Hygiene (QC): 6 (Dentures. Pt completed own oral care sitting at sink.) Shower/Bathe Self (QC): 4 (Supervision using grabbars, hand held shower and mica wer bench. Pt sits to complete all areas, leaning side to side to cleanse buttocks.) Lower Body Dressing (QC): 4 (Using AE to thread feet into brief then CGA in standing while hikes pants over feet.) On/Off Footwear: 6 (Using sock aide, pt able to complete by self.) OT Short Term Goals Short Term Goals Time Frame: Aug 27, 2019 OT Skewer Up Goals Retirement Goals Time Frame: Sep 03, 2019 Eating (QC): 6 Oral Hygiene (QC): 6 Toileting Hygiene (QC): 6 Shower/Bathe Self (QC): 6 Upper Body Dressing (QC): 6 Lower Body Dressing (QC): 6 On/Off Footwear (QC): 6 Additional Goals: 1-Demonstrate ADL Tasks, 2-Verbalize Understanding, 3- ImproveStrength/Yifan 1=Demonstrate adherence to instructed precautions during ADL tasks. 2=Patient will verbalize/demonstrate understanding of assistive devices/modifications for ADL. 3=Patient will improve strength/tolerance for activity to enable patient to perform ADL's. OT Education/Plan Problem List/Assessment Assessment: Decreased Activ Tolerance, Decreased Safety Aware, Decreased UE Strength, Impaired Coordination, Impaired Funct Balance, Impaired Self-Care Skills Discharge Recommendations Plan/Recommendations: Continue POC Treatment Plan/Plan of Care Patient would benefit from OT for education, treatment and training to promote independence in ADL's, mobility, safety and/or upper extremity function for ADL's. Plan of Care: ADL Retraining, Caregiver Training, Functional Mobility, Group Exercise/Act as Ind, UE Funct Exercise/Act Treatment Duration: Sep 03, 2019 Frequency: At least 5 of 7 days/Wk (IRF) Estimated Hrs Per Day: 1.5 hours per day Agreement: Yes Rehab Potential: Good Time/GCodes Start Time: 10:55 Stop Time: 11:57 Total Time Billed (hr/min): 62 Billed Treatment Time 1 visit-ADL 4 (62 min) ELEAZAR ESCOBEDO Aug 27, 2019 11:56
--- NOTE | 2019-08-27 14:33 | Therapy Group Daily Note ---
Therapy Daily Group Note Patient Education Topic Fall Prevention, Other List Below (components of balance, ARU expectations) Exercises LE Seated Exercise, Fine Motor Session Ratio (pt:therapist): 4:1 Goal of Session: Education on ARU Expectations, Safety with Transfers, Other (list) (balance education and strategies for safety) Goal Met for this Session: Yes Pt Benefit of Group: Contributions to Others, Increased Functional Safety, Increased Functional Strength, Socialization Other/Notes Pt. participated in group PT OT session this date. Pt. ambulated to and from with CGA FWW. Pts. introduced selves and shared their [place] vacation as well as their [place] food and preparation traditions. Pts were educated in basic ARU expectations hina 3 hr requirement etc. Education focus was balance, its components , what influences balance as well as ways to stay safe at home and while TRFing and walking. Seated balance and U&L extremity exercises were demonstrated with pts participating as tolerated. Pt. to room after group with call brambila at hand Start Time: 13:00 Stop Time: 14:20 Total Billed Treatment Time: 80 Total Billed Treatment 1,GRP CARLOS PERALTA DUAL HOSE CEMENTER Aug 27, 2019 14:33
--- NOTE | 2019-08-27 15:12 | Progress Note - Cardiology ---
Cardiology SOAP Progress Note Subjective: Less dizzy with posture changes Gen weakness No cp or palp or syncope No shortness of breath at rest Objective: I&O/Vital Signs 08/27/19 08/27/19 08/27/19 06:15 08:22 08:47 Temp 37.1 Pulse 109 88 Resp 20 20 B/P (MAP) 124/67 (86) 134/70 (91) Pulse Ox 99 99 O2 Delivery Room Air Room Air Room Air 08/27/19 00:00 Intake Total 2850 ml Output Total 2000 ml Balance 850 ml Constitutional: No apparent distress; other (drowsy, awakens easily, drifts back to sleep) Respiratory: No accessory muscle use, No respiratory distress; chest expansion is symmetric, chest is bilaterally symmetric, lungs clear to auscultation Cardiovascular: regular rate-rhythm; No JVD; S1 and S2 Gastrointestional: No tender; soft Extremities: other (mod RLE swelling) Neurologic/Psychiatric: other (moves extremities) Skin: No rash on exposed areas, No ulcerations on exposed areas Results/Procedures: Labs Laboratory Tests 08/26/19 15:41: Glucometer 136H 08/26/19 20:42: Glucometer 126H 08/27/19 05:39: Glucometer 97 08/27/19 11:04: Glucometer 127H Laboratory Tests 08/26/19 05:12 A/P: Assessment: Postural hypotension, likely related to meds and volume depletion Hypokalemia due to diuretic therapy (on two diuretics: chlorthalidone and furosemide). Chlorthalidone d/c'd on 08/20/19 S/P R THR at [facility] in [place], [place] by Dr. Olivier Report [place] about [address]. [address] Dickens undertook a w/u and Mr Fitzgerald report he was told his CAD was inoperable H/O PPM implant in January [address] Medina at [facility] for symptomatic bradycardia Echo on 08/20/19: LVEF 45-50%, mild to mod AI, mod MAC, RVSP 25 mmHg Permanent A Fib TSH normal (1.31) on 08/21/19 OAC with Eliquis Chronic anemia DM HTN HLD Obesity Plan: * Multiple med d/c'd (see orders and previous notes) * Continue diltiazem in a lower dose * Continue dig * Continue apixaban * D/c iv fluids tomorrow am * Monitor labs from time to time * Dr Simon covering Cardiology. Please call if needed THERESE VOGEL MD FACP FAC CCDS Aug 27, 2019 15:12
--- NOTE | 2019-08-27 15:50 | NUR ---
[facility] [phone] FX: [phone] POCKET MACHINE OPERATOR/Manju Alerted Manju of patient discharge planned for 09/02/19, and asked to get him tentatively on the schedule for resume of services. HHC orders for RN, PT and OT will be faxed to them as part of discharge. 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 Manju will contact them to alert to resume services relative to patient return home 09/02/19. Letter for airline completed for [employer] and [employer] because of patient change of condition requiring their delay in return flight back to [place]. Resume discharge planning next week.
[2019-08-27 17:41] VITALS: BP 113/64
[2019-08-27] MEDS: GABAPENTIN 400 MG (NEURONTIN) CAP PO SCH (20:19)
[2019-08-28] MEDS: NS IV 1000 ML 1,000 ML IV SCH (02:06)
[2019-08-28] MEDS: inSUlin ASPART (NovoLOG) 1 UNIT/0.01 ML (CHARGE PER UNIT) SC SCH ×5 (05:45→20:42)
[2019-08-28 06:16] VITALS: BP 127/77
[2019-08-28] MEDS: FERROUS SULF 325 MG (IRON) TAB PO SCH ×2 (06:24→08:17)
[2019-08-28] MEDS: metFORMIN 500 MG (GLUCOPHAGE) TAB PO SCH ×2 (06:24→08:18)
[2019-08-28] MEDS: GABAPENTIN 300 MG (NEURONTIN) CAP PO SCH ×2 (08:17→12:55)
[2019-08-28] MEDS: FINASTERIDE (PROSCAR) 5 MG TAB PO SCH (08:17)
[2019-08-28] MEDS: SENNA W/DOCUSATE (SENOKOT S) TABLET PO SCH ×2 (08:18→20:41)
[2019-08-28] MEDS: DIGOXIN 0.25 MG (LANOXIN) TAB PO SCH (08:18)
[2019-08-28] MEDS: DOCUSATE SODIUM 100 MG (COLACE) CAP PO SCH (08:18)
[2019-08-28] MEDS: BACLOFEN 10 MG (LIORESAL) TAB PO PRN (08:18)
[2019-08-28] MEDS: DILTIAZEM 120 MG (CARDIZEM CD) CAP PO SCH (08:19)
[2019-08-28] MEDS: CYANOCOBALAMIN 1,000 MCG (VITAMIN B-12) TABLET PO SCH (08:20)
[2019-08-28] MEDS: POLYETHYLENE GLYCOL 17 GM (MIRALAX) PACK PO SCH ×2 (08:20→20:42)
[2019-08-28] MEDS: APIXABAN 5 MG (ELIQUIS) TABLET PO SCH ×2 (08:24→20:41)
[2019-08-28] MEDS: EMPAGLIFLOZIN 25 MG TAB PO SCH (08:25)
[2019-08-28 09:00] VITALS: BP 107/56
[2019-08-28] MEDS ORDERED: DILTIAZEM 180 MG (CARDIZEM CD) CAP PO SCH (09:00)
--- NOTE | 2019-08-28 12:36 | PM&R Progress Note ---
Subjective HPI/CC On Admission Date Seen by Provider: Aug 28, 2019 Time Seen by Provider: 12:30 Subjective/Events-last exam Somatic complaints continue but minimal since his son brought him [place] food today and he is currently visiting IV fluid were DC after 24 hours Orthostatic at times, spoke with Dr. Oro yesterday about his Cardizem and the lower dose seems to be helping him Somatic issues continue Discharge planned for next week Overall very difficult to navigate and high-risk for falls with orthostasis. Reviewed meds and labs Conferred with RN Reviewed therapy notes Review of Systems Musculoskeletal: back pain, leg pain Objective Exam Vital Signs Vital Signs Date Time Temp Pulse Resp B/P (MAP) Pulse Ox O2 Delivery O2 Flow Rate FiO2 08/28/19 15:39 36.4 90 16 112/67 (82) 98 Room Air 08/27/19 20:20 2.00 Capillary Refill : General Appearance: No Apparent Distress, WD/WN, Chronically ill, Obese HEENT: PERRL/EOMI, Normal ENT Inspection, Pharynx Normal Neck: Full Range of Motion, Normal Inspection, Non Tender, Supple, Carotid Bruit Respiratory: Chest Non Tender, Normal Breath Sounds, No Accessory Muscle Use, No Respiratory Distress, Decreased Breath Sounds Cardiovascular: Regular Rate, Rhythm, No Gallop, No JVD, No Murmur, Normal Peripheral Pulses Gastrointestinal: Normal Bowel Sounds, No Organomegaly, No Pulsatile Mass, Non Tender, Soft Back: Normal Inspection, No CVA Tenderness, No Vertebral Tenderness Extremity: Normal Capillary Refill, Normal Inspection, Normal Range of Motion, Non Tender, No Calf Tenderness, Pedal Edema Neurologic/Psychiatric: Alert, Oriented x3, No Motor/Sensory Deficits (decreased in legs), Normal Mood/Affect, line patroller II-XII Norm as Tested Skin: Normal Color, Warm/Dry Lymphatic: No Adenopathy Results/Procedures Lab Patient resulted labs reviewed. FIM Transfers Therapy Code Descriptions/Definitions Functional [place] Measure: 0=Not Assessed/NA 4=Minimal Assistance 1=Total Assistance 5=Supervision or Setup 2=Maximal Assistance 6=Modified [place] 3=Moderate Assistance 7=Complete IndependenceSCALE: Activities may be completed with or without assistive devices. 0-Bvqaigyupc-xucsfmx completes the activity by him/herself with no assistance from a helper. 5-Set-up or Clean-up Assistance-helper sets up or cleans up; patient completes activity. [place] assists only prior to or following the activity. 4-Supervision or Touching Assistance-helper provides verbal cues and/or touching/steadying and/or contact guard assistance as patient completes activity. Assistance may be provided throughout the activity or intermittently. 3-Partial/Moderate Assistance-helper does LESS THAN HALF the effort. [place] lifts, holds or supports trunk or limbs, but provides less than half the effort. 2-Substantial/Maximal Assistance-helper does MORE THAN HALF the effort. [place] lifts or holds trunk or limbs and provides more than half the effort. 7-Mbenafwqw-kjxvpq does ALL the effort. Patient does none of the effort to complete the activity. Or, the assistance of 2 or more helpers is required for the patient to complete the activity. If activity was not attempted, code reason: 7-Patient Refused. 9-Not Applicable-not attempted and the patient did not perform the activity before the current illness, exacerbation or injury. 10-Not Attempted due to Environmental Limitations-(lack of equipment, weather restraints, etc.). 88-Not Attempted due to Medical Conditions or Safety Concerns. Roll Left to Right (QC): 3 Sit to Lying (QC): 3 Sit to Stand (QC): 4 Chair/Ohk-yh-Cbmup Xfer(QC): 4 Car Transfer (QC): 2 (max assist to complete. ) Gait Training Does the Patient Walk?: Yes Distance: 75'x4 Walk 10 feet (QC): 4 Walk 50 ft with 2 Turns(QC): 4 Walk 150 ft (QC): 5 Walking 10ft/uneven surface-QC: 88 Gait Persons Needed: 1 Gait Assistive Device: FWW Wheelchair Training Does the Pt Use a Wheelchair?: Yes Wheel 50 ft with 2 turns (QC): 6 Wheel 150 ft (QC): 6 Type of Wheelchair: Motorized Stair Training 1 Step (curb) (QC): 88 4 Steps (QC): 88 12 Steps (QC): 88 Balance Picking up an Object (QC): 88 ADL-Treatment Eating (QC): 6 Oral Hygiene (QC): 6 (Dentures. Pt completed own oral care sitting at sink.) Shower/Bathe Self (QC): 4 (Supervision using grabbars, hand held shower and shower bench. Pt sits to complete all areas, leaning side to side to cleanse buttocks.) Upper Body Dressing (QC): 5 Lower Body Dressing (QC): 4 (Using AE to thread feet into brief then CGA in standing while hikes pants over feet.) On/Off Footwear (QC): 6 (Using sock aide, pt able to complete by self.) Toileting Hygiene (QC): 4 (CGA in standing to complete hygiene and clothing manipulation.) Toilet Transfer (QC): 4 (CGA for transfer using FWW and grabbars.) Assessment/Plan Assessment and Plan Assess & Plan/Chief Complaint Assessment: Status post uncomplicated right hip replacement Atrial fibrillation CAD Alcoholism Hypertension Diabetes mellitus Hypoglycemic episode Debility chronic Anemia Hypokalemia Hypotension now resolved after IVF so will heplock s/p non-injury fall Plan: Inpatient rehab protocol Monitor potassium Supplement potassium Appreciate cardiology Monitor blood sugar and blood pressure Fall risk Orthostasis poses fall risk but seems improved today with decreased Cardizem doses (1) Debility (2) CAD (coronary artery disease) (3) Diabetes mellitus (4) Pacemaker (5) Atrial fibrillation (6) IBS (irritable bowel syndrome) (7) KRAIG (obstructive sleep apnea) (8) Hypertension (9) Hyperlipemia (10) Depression (11) BPH (benign prostatic hyperplasia) (12) Status post right hip replacement TOLU PENA DO Aug 28, 2019 12:36
--- NOTE | 2019-08-28 12:38 | NUR ---
DR PENA HERE TO SEE PT/NO NEW ORDERS
--- NOTE | 2019-08-28 15:21 | Cardiology Progress Note ---
Cardiology SOAP Progress Note Subjective: No cardiac complaints. Objective: I&O/Vital Signs 08/28/19 08/28/19 06:16 09:00 Temp 36.9 Pulse 125 Resp 22 B/P (MAP) 127/77 (94) Pulse Ox 97 O2 Delivery Room Air Room Air 08/28/19 00:00 Intake Total 1450 ml Output Total 1400 ml Balance 50 ml Constitutional: No apparent distress; other (drowsy, awakens easily, drifts back to sleep) Respiratory: No accessory muscle use, No respiratory distress; chest expansion is symmetric, chest is bilaterally symmetric, lungs clear to auscultation Cardiovascular: regular rate-rhythm; No JVD; S1 and S2 Gastrointestional: No tender; soft, audible bowel sounds Extremities: normal inspection, other (mod RLE swelling) Neurologic/Psychiatric: no motor/sensory deficits, alert, normal mood/affect, oriented x 3, other (moves extremities) Skin: normal color; No rash on exposed areas, No ulcerations on exposed areas Results/Procedures: Labs Laboratory Tests 08/27/19 15:44: Glucometer 178H 08/27/19 20:47: Glucometer 125H 08/28/19 05:15: Glucometer 130H 08/28/19 11:08: Glucometer 110 A/P: Assessment/Dx: Postural hypotension, likely related to meds and volume depletion Hypokalemia due to diuretic therapy (on two diuretics: chlorthalidone and furosemide). Chlorthalidone d/c'd on 08/20/19 S/P R THR at [facility] in [place], [place] by Dr. Olivier Report [place] about [address]. [address] Dickens undertook a w/u and Mr Fitzgerald report he was told his CAD was inoperable H/O PPM implant in January [address] Medina at [facility] for symptomatic bradycardia Echo on 08/20/19: LVEF 45-50%, mild to mod AI, mod MAC, RVSP 25 mmHg Permanent A Fib TSH normal (1.31) on 08/21/19 OAC with Eliquis Chronic anemia DM HTN HLD Obesity Plan: Plan: * Multiple med d/c'd (see orders and previous notes) * Continue diltiazem in a lower dose * Continue dig * Continue apixaban * D/c iv fluids * Monitor labs from time to time Thank you for your consultation. Please call me if you have any questions. Claudia Simon MD, FACP, FACC, FSCAI, FHRS, CCDS Interventional Cardiology Cardiac Electrophysiology Vascular Medicine and Endovascular Interventions Maco SIMON MD Aug 28, 2019 15:21
[2019-08-28 15:39] VITALS: BP 112/67
[2019-08-28] MEDS: GABAPENTIN 400 MG (NEURONTIN) CAP PO SCH (20:41)
[2019-08-29] MEDS: BACLOFEN 10 MG (LIORESAL) TAB PO PRN ×2 (01:22→19:53)
[2019-08-29] MEDS: inSUlin ASPART (NovoLOG) 1 UNIT/0.01 ML (CHARGE PER UNIT) SC SCH ×4 (05:35→20:28)
[2019-08-29 05:38] VITALS: BP 116/68
[2019-08-29] MEDS: FERROUS SULF 325 MG (IRON) TAB PO SCH ×2 (06:36→17:30)
[2019-08-29] MEDS: metFORMIN 500 MG (GLUCOPHAGE) TAB PO SCH ×2 (06:36→17:30)
[2019-08-29] MEDS: CYANOCOBALAMIN 1,000 MCG (VITAMIN B-12) TABLET PO SCH (09:24)
[2019-08-29] MEDS: SENNA W/DOCUSATE (SENOKOT S) TABLET PO SCH ×2 (09:24→19:53)
[2019-08-29] MEDS: EMPAGLIFLOZIN 25 MG TAB PO SCH (09:24)
[2019-08-29] MEDS: FINASTERIDE (PROSCAR) 5 MG TAB PO SCH (09:24)
[2019-08-29] MEDS: DOCUSATE SODIUM 100 MG (COLACE) CAP PO SCH (09:24)
[2019-08-29] MEDS: DILTIAZEM 120 MG (CARDIZEM CD) CAP PO SCH (09:25)
[2019-08-29] MEDS: GABAPENTIN 300 MG (NEURONTIN) CAP PO SCH ×2 (09:25→12:11)
[2019-08-29] MEDS: APIXABAN 5 MG (ELIQUIS) TABLET PO SCH ×2 (09:25→19:53)
[2019-08-29] MEDS: DIGOXIN 0.25 MG (LANOXIN) TAB PO SCH (09:25)
[2019-08-29] MEDS: POLYETHYLENE GLYCOL 17 GM (MIRALAX) PACK PO SCH ×2 (09:27→19:54)
[2019-08-29 09:28] VITALS: BP 130/82
--- NOTE | 2019-08-29 10:42 | Cardiology Progress Note ---
Cardiology SOAP Progress Note Subjective: No cardiac complaints. Objective: I&O/Vital Signs 08/29/19 08/29/19 05:38 09:28 Temp 37.2 Pulse 97 96 Resp 20 B/P (MAP) 116/68 (84) 130/82 (98) Pulse Ox 95 O2 Delivery Room Air Room Air 08/29/19 00:00 Intake Total 2260 ml Output Total 2275 ml Balance -15 ml Constitutional: No apparent distress; other (drowsy, awakens easily, drifts back to sleep) Respiratory: No accessory muscle use, No respiratory distress; chest expansion is symmetric, chest is bilaterally symmetric, lungs clear to auscultation Cardiovascular: regular rate-rhythm; No JVD; S1 and S2 Gastrointestional: No tender; soft, audible bowel sounds Extremities: normal inspection, other (mod RLE swelling) Neurologic/Psychiatric: no motor/sensory deficits, alert, normal mood/affect, oriented x 3, other (moves extremities) Skin: normal color; No rash on exposed areas, No ulcerations on exposed areas Results/Procedures: Labs Laboratory Tests 08/28/19 11:08: Glucometer 110 08/28/19 15:26: Glucometer 163H 08/28/19 20:41: Glucometer 143H 08/29/19 05:24: Glucometer 135H A/P: Assessment/Dx: Postural hypotension, likely related to meds and volume depletion Hypokalemia due to diuretic therapy (on two diuretics: chlorthalidone and furosemide). Chlorthalidone d/c'd on 08/20/19 S/P R THR at [facility] in [place], [place] by Dr. Olivier Report [place] about [address]. [address] Dickens undertook a w/u and Mr Fitzgerald report he was told his CAD was inoperable H/O PPM implant in January [address] Medina at [facility] for symptomatic bradycardia Echo on 08/20/19: LVEF 45-50%, mild to mod AI, mod MAC, RVSP 25 mmHg Permanent A Fib TSH normal (1.31) on 08/21/19 OAC with Eliquis Chronic anemia DM HTN HLD Obesity Plan: Plan: * Multiple med d/c'd (see orders and previous notes) * Continue diltiazem in a lower dose * Continue dig * Continue apixaban * D/c iv fluids * Monitor labs from time to time Thank you for your consultation. Please call me if you have any questions. Claudia Simon MD, FACP, FACC, FSCAI, FHRS, CCDS Interventional Cardiology Cardiac Electrophysiology Vascular Medicine and Endovascular Interventions Maco SIMON MD Aug 29, 2019 10:42
--- NOTE | 2019-08-29 11:00 | NUR ---
DR PENA HERE TO SEE PT/NO NEW ORDERS AT THIS TIME
--- NOTE | 2019-08-29 12:26 | PM&R Progress Note ---
Subjective HPI/CC On Admission Date Seen by Provider: Aug 29, 2019 Time Seen by Provider: 12:10 Subjective/Events-last exam Somatic complaints continue but minimal today IV fluids are no longer needed BP stable Dr Oro changed meds and that seems to be helping orthostasis Somatic issues continue Discharge planned for next week Overall very difficult to navigate and high-risk for falls with orthostasis but that seems to be much improved. Reviewed meds and labs Conferred with RN Reviewed therapy notes Review of Systems General: Fatigue Objective Exam Vital Signs Vital Signs Date Time Temp Pulse Resp B/P (MAP) Pulse Ox O2 Delivery O2 Flow Rate FiO2 08/29/19 17:10 37.0 79 18 134/72 (92) 97 Room Air 08/28/19 20:20 2.00 Capillary Refill : General Appearance: No Apparent Distress, WD/WN, Chronically ill, Obese HEENT: PERRL/EOMI, Normal ENT Inspection, Pharynx Normal Neck: Full Range of Motion, Normal Inspection, Non Tender, Supple, Carotid Bruit Respiratory: Chest Non Tender, Normal Breath Sounds, No Accessory Muscle Use, No Respiratory Distress, Decreased Breath Sounds Cardiovascular: Regular Rate, Rhythm, No Gallop, No JVD, No Murmur, Normal Peripheral Pulses Gastrointestinal: Normal Bowel Sounds, No Organomegaly, No Pulsatile Mass, Non Tender, Soft Back: Normal Inspection, No CVA Tenderness, No Vertebral Tenderness Extremity: Normal Capillary Refill, Normal Inspection, Normal Range of Motion, Non Tender, No Calf Tenderness, Pedal Edema Neurologic/Psychiatric: Alert, Oriented x3, No Motor/Sensory Deficits (decreased in legs), Normal Mood/Affect, family dinner service specialist II-XII Norm as Tested Skin: Normal Color, Warm/Dry Lymphatic: No Adenopathy Results/Procedures Lab Patient resulted labs reviewed. FIM Transfers Therapy Code Descriptions/Definitions Functional [place] Measure: 0=Not Assessed/NA 4=Minimal Assistance 1=Total Assistance 5=Supervision or Setup 2=Maximal Assistance 6=Modified [place] 3=Moderate Assistance 7=Complete IndependenceSCALE: Activities may be completed with or without assistive devices. 5-Scyggmoqan-dumlfhn completes the activity by him/herself with no assistance from a helper. 5-Set-up or Clean-up Assistance-helper sets up or cleans up; patient completes activity. [place] assists only prior to or following the activity. 4-Supervision or Touching Assistance-helper provides verbal cues and/or touching/steadying and/or contact guard assistance as patient completes activity. Assistance may be provided throughout the activity or intermittently. 3-Partial/Moderate Assistance-helper does LESS THAN HALF the effort. [place] lifts, holds or supports trunk or limbs, but provides less than half the effort. 2-Substantial/Maximal Assistance-helper does MORE THAN HALF the effort. [place] lifts or holds trunk or limbs and provides more than half the effort. 2-Adunhurwl-htgdsh does ALL the effort. Patient does none of the effort to complete the activity. Or, the assistance of 2 or more helpers is required for the patient to complete the activity. If activity was not attempted, code reason: 7-Patient Refused. 9-Not Applicable-not attempted and the patient did not perform the activity before the current illness, exacerbation or injury. 10-Not Attempted due to Environmental Limitations-(lack of equipment, weather restraints, etc.). 88-Not Attempted due to Medical Conditions or Safety Concerns. Roll Left to Right (QC): 3 Sit to Lying (QC): 3 Sit to Stand (QC): 4 Chair/Gzb-cd-Jbosv Xfer(QC): 4 Car Transfer (QC): 2 (max assist to complete. ) Gait Training Does the Patient Walk?: Yes Distance: 75'x4 Walk 10 feet (QC): 4 Walk 50 ft with 2 Turns(QC): 4 Walk 150 ft (QC): 5 Walking 10ft/uneven surface-QC: 88 Gait Persons Needed: 1 Gait Assistive Device: FWW Wheelchair Training Does the Pt Use a Wheelchair?: Yes Wheel 50 ft with 2 turns (QC): 6 Wheel 150 ft (QC): 6 Type of Wheelchair: Motorized Stair Training 1 Step (curb) (QC): 88 4 Steps (QC): 88 12 Steps (QC): 88 Balance Picking up an Object (QC): 88 ADL-Treatment Eating (QC): 6 Oral Hygiene (QC): 6 (Dentures. Pt completed own oral care sitting at sink.) Shower/Bathe Self (QC): 4 (Supervision using grabbars, hand held shower and shower bench. Pt sits to complete all areas, leaning side to side to cleanse buttocks.) Upper Body Dressing (QC): 5 Lower Body Dressing (QC): 4 (Using AE to thread feet into brief then CGA in standing while hikes pants over feet.) On/Off Footwear (QC): 6 (Using sock aide, pt able to complete by self.) Toileting Hygiene (QC): 4 (CGA in standing to complete hygiene and clothing manipulation.) Toilet Transfer (QC): 4 (CGA for transfer using FWW and grabbars.) Assessment/Plan Assessment and Plan Assess & Plan/Chief Complaint Assessment: Status post uncomplicated right hip replacement Atrial fibrillation CAD Alcoholism Hypertension Diabetes mellitus Hypoglycemic episode Debility chronic Anemia Hypokalemia Hypotension now resolved after IVF so will heplock s/p non-injury fall Plan: Inpatient rehab protocol Monitor potassium Supplement potassium Appreciate cardiology Monitor blood sugar and blood pressure Fall risk Orthostasis poses fall risk but seems improved today with decreased Cardizem doses (1) Debility (2) CAD (coronary artery disease) (3) Diabetes mellitus (4) Pacemaker (5) Atrial fibrillation (6) IBS (irritable bowel syndrome) (7) KRAIG (obstructive sleep apnea) (8) Hypertension (9) Hyperlipemia (10) Depression (11) BPH (benign prostatic hyperplasia) (12) Status post right hip replacement TOLU PENA DO Aug 29, 2019 12:26
[2019-08-29 17:10] VITALS: BP 134/72
[2019-08-29] MEDS: GABAPENTIN 400 MG (NEURONTIN) CAP PO SCH (19:53)
[2019-08-30] MEDS: inSUlin ASPART (NovoLOG) 1 UNIT/0.01 ML (CHARGE PER UNIT) SC SCH ×4 (05:28→21:30)
[2019-08-30 05:48] VITALS: BP 106/68
[2019-08-30 06:00] LABS: BASOPHILS # (AUTO) 0.1 10^3/uL (0.0-0.1); BASOPHILS % (AUTO) 1 % (0-10); EOSINOPHILS # (AUTO) 0.2 10^3/uL (0.0-0.3); EOSINOPHILS % (AUTO) 3 % (0-10); HEMATOCRIT 32 % (40-54); HEMOGLOBIN 10.6 G/DL (13.3-17.7); LYMPHOCYTES # (AUTO) 0.9 X 10^3 (1.0-4.0); LYMPHOCYTES % (AUTO) 13 % (12-44); MEAN CORPUSCULAR HEMOGLOBIN 32 PG (25-34); MEAN CORPUSCULAR HGB CONC 33 G/DL (32-36); MEAN CORPUSCULAR VOLUME 96 FL (80-99); MEAN PLATELET VOLUME 8.1 FL (7.4-10.4); MONOCYTES # (AUTO) 0.8 X 10^3 (0.0-1.0); MONOCYTES % (AUTO) 11 % (0-12); NEUTROPHILS # (AUTO) 4.9 X 10^3 (1.8-7.8); NEUTROPHILS % (AUTO) 71 % (42-75); PLATELET COUNT 288 10^3/uL (130-400); RED CELL DISTRIBUTION WIDTH 13.5 % (10.0-14.5); WHITE BLOOD COUNT 6.9 10^3/uL (4.3-11.0)
[2019-08-30 06:20] LABS: ALANINE AMINOTRANSFERASE 17 U/L (0-55); ALBUMIN 3.2 GM/DL (3.2-4.5); ALKALINE PHOSPHATASE 138 U/L (40-136); BILIRUBIN,TOTAL 1.1 MG/DL (0.1-1.0); BUN/CREATININE RATIO 11; CALCIUM 8.9 MG/DL (8.5-10.1); CARBON DIOXIDE 22 MMOL/L (21-32); CHLORIDE 103 MMOL/L (98-107); GFR ESTIMATED > 60; GLUCOSE 110 MG/DL (70-105); POTASSIUM 3.7 MMOL/L (3.6-5.0); SODIUM 137 MMOL/L (135-145)
[2019-08-30] MEDS: metFORMIN 500 MG (GLUCOPHAGE) TAB PO SCH ×2 (06:27→17:29)
[2019-08-30] MEDS: FERROUS SULF 325 MG (IRON) TAB PO SCH ×2 (06:27→17:30)
--- NOTE | 2019-08-30 09:11 | PM&R Progress Note ---
Subjective HPI/CC On Admission Date Seen by Provider: Aug 30, 2019 Time Seen by Provider: 09:15 Subjective/Events-last exam Somatic complaints continue but minimal today Low dose of Cardizem has resolved the orthostasis Dr Oro changed meds and that seems to be helping orthostasis Somatic issues continue Discharge planned for tomorrow before his appt with Dr Olivier Overall very difficult to navigate and high-risk for falls with orthostasis but that seems to be much improved. Reviewed meds and labs Conferred with RN Reviewed therapy notes Review of Systems General: Fatigue Musculoskeletal: leg pain Objective Exam Vital Signs Vital Signs Date Time Temp Pulse Resp B/P (MAP) Pulse Ox O2 Delivery O2 Flow Rate FiO2 08/30/19 15:43 37.2 78 16 113/78 (90) 97 Room Air 08/29/19 20:14 2.00 Capillary Refill : General Appearance: No Apparent Distress, WD/WN, Chronically ill, Obese HEENT: PERRL/EOMI, Normal ENT Inspection, Pharynx Normal Neck: Full Range of Motion, Normal Inspection, Non Tender, Supple, Carotid Bruit Respiratory: Chest Non Tender, Normal Breath Sounds, No Accessory Muscle Use, No Respiratory Distress, Decreased Breath Sounds Cardiovascular: Regular Rate, Rhythm, No Gallop, No JVD, No Murmur, Normal Peripheral Pulses Gastrointestinal: Normal Bowel Sounds, No Organomegaly, No Pulsatile Mass, Non Tender, Soft Back: Normal Inspection, No CVA Tenderness, No Vertebral Tenderness Extremity: Normal Capillary Refill, Normal Inspection, Normal Range of Motion, Non Tender, No Calf Tenderness, Pedal Edema Neurologic/Psychiatric: Alert, Oriented x3, No Motor/Sensory Deficits (decreased in legs), Normal Mood/Affect, behavior interventionist II-XII Norm as Tested Skin: Normal Color, Warm/Dry Lymphatic: No Adenopathy Results/Procedures Lab Laboratory Tests 08/30/19 05:27 Patient resulted labs reviewed. FIM Transfers Therapy Code Descriptions/Definitions Functional [place] Measure: 0=Not Assessed/NA 4=Minimal Assistance 1=Total Assistance 5=Supervision or Setup 2=Maximal Assistance 6=Modified [place] 3=Moderate Assistance 7=Complete IndependenceSCALE: Activities may be completed with or without assistive devices. 6-Ksfjtjcxkg-qajayqn completes the activity by him/herself with no assistance from a helper. 5-Set-up or Clean-up Assistance-helper sets up or cleans up; patient completes activity. [place] assists only prior to or following the activity. 4-Supervision or Touching Assistance-helper provides verbal cues and/or touching/steadying and/or contact guard assistance as patient completes activity. Assistance may be provided throughout the activity or intermittently. 3-Partial/Moderate Assistance-helper does LESS THAN HALF the effort. [place] lifts, holds or supports trunk or limbs, but provides less than half the effort. 2-Substantial/Maximal Assistance-helper does MORE THAN HALF the effort. [place] lifts or holds trunk or limbs and provides more than half the effort. 1-Werrrejnj-fljgtd does ALL the effort. Patient does none of the effort to complete the activity. Or, the assistance of 2 or more helpers is required for the patient to complete the activity. If activity was not attempted, code reason: 7-Patient Refused. 9-Not Applicable-not attempted and the patient did not perform the activity before the current illness, exacerbation or injury. 10-Not Attempted due to Environmental Limitations-(lack of equipment, weather restraints, etc.). 88-Not Attempted due to Medical Conditions or Safety Concerns. Roll Left to Right (QC): 3 Sit to Lying (QC): 3 Sit to Stand (QC): 4 Chair/Acl-no-Vdcra Xfer(QC): 4 Car Transfer (QC): 2 (max assist to complete. ) Gait Training Does the Patient Walk?: Yes Distance: 75'x4 Walk 10 feet (QC): 4 Walk 50 ft with 2 Turns(QC): 4 Walk 150 ft (QC): 5 Walking 10ft/uneven surface-QC: 88 Gait Persons Needed: 1 Gait Assistive Device: FWW Wheelchair Training Does the Pt Use a Wheelchair?: Yes Wheel 50 ft with 2 turns (QC): 6 Wheel 150 ft (QC): 6 Type of Wheelchair: Motorized Stair Training 1 Step (curb) (QC): 88 4 Steps (QC): 88 12 Steps (QC): 88 Balance Picking up an Object (QC): 88 ADL-Treatment Eating (QC): 6 Oral Hygiene (QC): 6 (Dentures. Pt completed own oral care sitting at sink.) Shower/Bathe Self (QC): 4 (Supervision using grabbars, hand held shower and shower bench. Pt sits to complete all areas, leaning side to side to cleanse buttocks.) Upper Body Dressing (QC): 5 Lower Body Dressing (QC): 4 (Using AE to thread feet into brief then CGA in standing while hikes pants over feet.) On/Off Footwear (QC): 6 (Using sock aide, pt able to complete by self.) Toileting Hygiene (QC): 4 (CGA in standing to complete hygiene and clothing manipulation.) Toilet Transfer (QC): 4 (CGA for transfer using FWW and grabbars.) Assessment/Plan Assessment and Plan Assess & Plan/Chief Complaint Assessment: Status post uncomplicated right hip replacement Atrial fibrillation CAD Alcoholism Hypertension Diabetes mellitus Hypoglycemic episode Debility chronic Anemia Hypokalemia Hypotension now resolved after IVF so will heplock s/p non-injury fall Plan: Inpatient rehab protocol Monitor potassium Supplement potassium Appreciate cardiology Monitor blood sugar and blood pressure Fall risk Orthostasis poses fall risk but seems improved today with decreased Cardizem doses DC tomorrow (1) Debility (2) CAD (coronary artery disease) (3) Diabetes mellitus (4) Pacemaker (5) Atrial fibrillation (6) IBS (irritable bowel syndrome) (7) KRAIG (obstructive sleep apnea) (8) Hypertension (9) Hyperlipemia (10) Depression (11) BPH (benign prostatic hyperplasia) (12) Status post right hip replacement TOLU PENA DO Aug 30, 2019 09:11
[2019-08-30 09:19] VITALS: BP 133/64
[2019-08-30] MEDS: FINASTERIDE (PROSCAR) 5 MG TAB PO SCH (09:24)
[2019-08-30] MEDS: DIGOXIN 0.25 MG (LANOXIN) TAB PO SCH (09:24)
[2019-08-30] MEDS: GABAPENTIN 300 MG (NEURONTIN) CAP PO SCH ×2 (09:24→11:44)
[2019-08-30] MEDS: DILTIAZEM 120 MG (CARDIZEM CD) CAP PO SCH (09:25)
[2019-08-30] MEDS: SENNA W/DOCUSATE (SENOKOT S) TABLET PO SCH ×2 (09:25→19:56)
[2019-08-30] MEDS: APIXABAN 5 MG (ELIQUIS) TABLET PO SCH ×2 (09:25→19:56)
[2019-08-30] MEDS: DOCUSATE SODIUM 100 MG (COLACE) CAP PO SCH (09:25)
[2019-08-30] MEDS: POLYETHYLENE GLYCOL 17 GM (MIRALAX) PACK PO SCH ×2 (09:25→19:58)
[2019-08-30] MEDS: EMPAGLIFLOZIN 25 MG TAB PO SCH ×2 (09:26→09:45)
[2019-08-30] MEDS: CYANOCOBALAMIN 1,000 MCG (VITAMIN B-12) TABLET PO SCH (09:26)
--- NOTE | 2019-08-30 09:33 | Physical Therapy Daily Note ---
PT Daily Note-Current Subjective Pt. in bed and needs encouragement to participate. No c/o pain unless he is in process oif TRF sit to sup or during some exercises Pain Location: No Pain Reported Appearance brief saturated with urine, pt. requests change of brief and gown Mental Status Patient Orientation: Normal For Age Transfers SCALE: Activities may be completed with or without assistive devices. 1-Djjqamyeyb-vbtlfwc completes the activity by him/herself with no assistance from a helper. 5-Set-up or Clean-up Assistance-helper sets up or cleans up; patient completes activity. [place] assists only prior to or following the activity. 4-Supervision or Touching Assistance-helper provides verbal cues and/or touch ing/steadying and/or contact guard assistance as patient completes activity. Assistance may be provided throughout the activity or intermittently. 3-Partial/Moderate Assistance-helper does LESS THAN HALF the effort. [place] lifts, holds or supports trunk or limbs, but provides less than half the effort. 2-Substantial/Maximal Assistance-helper does MORE THAN HALF the effort. [place] lifts or holds trunk or limbs and provides more than half the effort. 4-Yzwbshciv-iybmcl does ALL the effort. Patient does none of the effort to complete the activity. Or, the assistance of 2 or more helpers is required for the patient to complete the activity. If activity was not attempted, code reason: 7-Patient Refused. 9-Not Applicable-not attempted and the patient did not perform the activity before the current illness, exacerbation or injury. 10-Not Attempted due to Environmental Limitations-(lack of equipment, weather restraints, etc.). 88-Not Attempted due to Medical Conditions or Safety Concerns. Roll Left & Right (QC): 6 Sit to Lying (QC): 6 Lying to Sitting/Side of Bed(Q: 6 Sit to Stand (QC): 6 Chair/Aeo-oz-Vocmy Xfer(QC): 6 Toilet Transfer (QC): 6 Car Transfer (QC): 6 at bed in gym which is flat and firm pt. had more leverage and performed TRFs better using psuedo rail of FWW held firmly by COMMERCIAL REAL ESTATE ASSOCIATE Weight Bearing Right Lower Extremity: Right Weight Bearing/Tolerated Left Lower Extremity: Left Full Weight Bearing Gait Training Does the Patient Walk?: Yes Walk 10 feet (QC): 6 Walk 50 ft with 2 Turns(QC): 6 Walk 150 ft (QC): 6 Walking 10ft/uneven surface-QC: 6 Gait Persons Needed: 0 Gait Assistive Device: FWW slow, flexed over device, mod wt bearing on device Stair Training pt. refuses to attempt steps in any fashion and states he doesnt have steps at home Balance Special Test Comments unsafe to trial Exercises Supine Ex: Ankle pumps, Quad Set, Rolling, Glut sets, Heel Slides, Short Arc Quads (assisted right), Scooting, Straight leg raise (assisted right), Hip abd/add (assisted right) Supine Reps: 12 Seated Therapy Exercises: Ankle pumps, Sit to stand, Long arc quads Seated Reps: 10 Treatments pt. stood EOB for clean up, min assist to doff brief in standing, pt. cleaned himself with cloth , sat and mod assist to joanne clean brief and gown Assessment Current Status: Good Progress PT Short Term Goals Short Term Goals Time Frame: Sep 01, 2019 Roll Left & Right: 4 Sit to lyin Lying to sitting on side of be: 4 Sit to stand: 3 Walk 10 feet: 3 PT Hotel General Manager Goals Chcf Goals PT Chcf Goals Time Frame: Sep 15, 2019 Roll Left & Right (QC): 6 Sit to Lying (QC): 6 Lying-Sitting on Side/Bed(QC): 6 Sit to Stand (QC): 6 Chair/Iju-oj-Qeqai Xfer(QC): 6 Toilet Transfer (QC): 6 Car Transfer (QC): 4 Does the Patient Walk: No and Walking Goal IS indicated Walk 10 feet (QC): 5 Walk 50ft with 2 Turns (QC): 9 Walk 150 ft (QC): 9 Walking 10ft on Uneven Surface: 9 1 Step (curb) (QC): 9 4 Steps (QC): 9 12 Steps (QC): 9 Picking up an Object (QC): 9 Does the Pt use WC or Scooter?: Yes Wheel 50 feet with 2 turns (QC: 6 Type: Motorized Wheel 150 feet: 6 Type: Motorized PT Plan Treatment/Plan Treatment Plan: Continue Plan of Care Treatment Plan: Bed Mobility, Education, Functional Activity Yifan, Functional Strength, Group Therapy, Gait, Safety, Therapeutic Exercise, Transfers Treatment Duration: Sep 15, 2019 Frequency: At least 5 of 7 days/Wk (IRF) Estimated Hrs Per Day: 1.5 hours per day Patient and/or Family Agrees t: Yes Safety Risks/Education Patient Education: Gait Training, Transfer Techniques, Correct Positioning, Disease Process, Safety Issues Teaching Recipient: Patient Teaching Methods: Demonstration, Discussion Response to Teaching: Verbalize Understanding, Return Demonstration, Reinforcement Needed Time/GCodes Time In: 845 Time Out: 930 Total Billed Treatment Time: 45 Total Billed Treatment 1,GT15m,EX15m,FA15m CARLOS PERALTA COMMERCIAL REAL ESTATE ASSOCIATE Aug 30, 2019 09:33
[2019-08-30] MEDS: BACLOFEN 10 MG (LIORESAL) TAB PO PRN (09:38)
--- NOTE | 2019-08-30 09:41 | NUR ---
Vitamin B12 still not scanning today, as wasn't on Friday also, call made to Pharmacy both days, & notified. Valeria in Pharmacy states that it is scanning down there for them. Notified ANGELA Salgado/rd manager.
--- NOTE | 2019-08-30 12:49 | Occupational Ther Daily Note ---
OT Current Status-Daily Note Subjective Pt alert, ambulating from bathroom with nrsg. Pt agrees to therapy. No c/o pain. Mental Status/Objective Patient Orientation: Person, Place, Time, Situation ADL-Treatment Pt agrees to shower. Mod I for supine to EOB with HOB elevated and using bed rails then min A for R LE. Pt transferred into shower with SBA for safety using grabbars, shower bench and FWW, CGA to transfer out of shower. Pt completed shower sitting on bench using grabbars and hand held shower, supervision. Pt declines long handle sponge and uses wash cloth on floor to scrub feet. Using AE, pt able to don/doff lower body clothing with SBA in standing to hike pants over hips. After therapy, pt lying in bed with call light/phone in reach. All needs met in room. Therapy Code Descriptions/Definitions Functional [place] Measure: 0=Not Assessed/NA 4=Minimal Assistance 1=Total Assistance 5=Supervision or Setup 2=Maximal Assistance 6=Modified [place] 3=Moderate Assistance 7=Complete IndependenceSCALE: Activities may be completed with or without assistive devices. 8-Pwayyudvwk-grwnitp completes the activity by him/herself with no assistance from a helper. 5-Set-up or Clean-up Assistance-helper sets up or cleans up; patient completes activity. [place] assists only prior to or following the activity. 4-Supervision or Touching Assistance-helper provides verbal cues and/or touching/steadying and/or contact guard assistance as patient completes activity. Assistance may be provided throughout the activity or intermittently. 3-Partial/Moderate Assistance-helper does LESS THAN HALF the effort. [place] lifts, holds or supports trunk or limbs, but provides less than half the effort. 2-Substantial/Maximal Assistance-helper does MORE THAN HALF the effort. [place] lifts or holds trunk or limbs and provides more than half the effort. 1-Clqdumulj-vunzhz does ALL the effort. Patient does none of the effort to complete the activity. Or, the assistance of 2 or more helpers is required for the patient to complete the activity. If activity was not attempted, code reason: 7-Patient Refused. 9-Not Applicable-not attempted and the patient did not perform the activity before the current illness, exacerbation or injury. 10-Not Attempted due to Environmental Limitations-(lack of equipment, weather restraints, etc.). 88-Not Attempted due to Medical Conditions or Safety Concerns. Shower/Bathe Self (QC): 4 Upper Body Dressing (QC): 5 Lower Body Dressing (QC): 4 On/Off Footwear: 5 OT Short Term Goals Short Term Goals Time Frame: Aug 27, 2019 OT Gear Hobber Operator Goals Skilled Nursing Goals Time Frame: Sep 03, 2019 Eating (QC): 6 Oral Hygiene (QC): 6 Toileting Hygiene (QC): 6 Shower/Bathe Self (QC): 6 Upper Body Dressing (QC): 6 Lower Body Dressing (QC): 6 On/Off Footwear (QC): 6 Additional Goals: 1-Demonstrate ADL Tasks, 2-Verbalize Understanding, 3-ImproveStrength/Yifan 1=Demonstrate adherence to instructed precautions during ADL tasks. 2=Patient will verbalize/demonstrate understanding of assistive devices/modifications for ADL. 3=Patient will improve strength/tolerance for activity to enable patient to perform ADL's. OT Education/Plan Problem List/Assessment Assessment: Decreased Activ Tolerance, Impaired Self-Care Skills Discharge Recommendations Plan/Recommendations: Continue POC Treatment Plan/Plan of Care Patient would benefit from OT for education, treatment and training to promote independence in ADL's, mobility, safety and/or upper extremity function for ADL's. Plan of Care: ADL Retraining, Caregiver Training, Functional Mobility, Group Exercise/Act as Ind, UE Funct Exercise/Act Treatment Duration: Sep 03, 2019 Frequency: At least 5 of 7 days/Wk (IRF) Estimated Hrs Per Day: 1.5 hours per day Agreement: Yes Rehab Potential: Good Time/GCodes Start Time: 10:30 Stop Time: 12:00 Total Time Billed (hr/min): 90 Billed Treatment Time 1 visit-ADL 6 (90 min) ELEAZAR ESCOBEDO Aug 30, 2019 12:49
--- NOTE | 2019-08-30 13:34 | Physical Therapy Daily Note ---
PT Daily Note-Current Subjective Pt. agrees to Rx. States he will ride home in an [employer] style vehicle. Hopes to DC tomorrow Pain Location: No Pain Reported Mental Status Patient Orientation: Normal For Age Transfers SCALE: Activities may be completed with or without assistive devices. 8-Tphukedlkw-jiuxzxr completes the activity by him/herself with no assistance from a helper. 5-Set-up or Clean-up Assistance-helper sets up or cleans up; patient completes activity. [place] assists only prior to or following the activity. 4-Supervision or Touching Assistance-helper provides verbal cues and/or touching/steadying and/or contact guard assistance as patient completes activity. Assistance may be provided throughout the activity or intermittently. 3-Partial/Moderate Assistance-helper does LESS THAN HALF the effort. Nome lifts, holds or supports trunk or limbs, but provides less than half the effort. 2-Substantial/Maximal Assistance-helper does MORE THAN HALF the effort. [place] lifts or holds trunk or limbs and provides more than half the effort. 7-Tbvzblksb-mbvzsf does ALL the effort. Patient does none of the effort to complete the activity. Or, the assistance of 2 or more helpers is required for the patient to complete the activity. If activity was not attempted, code reason: 7-Patient Refused. 9-Not Applicable-not attempted and the patient did not perform the activity before the current illness, exacerbation or injury. 10-Not Attempted due to Environmental Limitations-(lack of equipment, weather restraints, etc.). 88-Not Attempted due to Medical Conditions or Safety Concerns. Roll Left & Right (QC): 6 Sit to Lying (QC): 6 Lying to Sitting/Side of Bed(Q: 6 Sit to Stand (QC): 6 Chair/Puo-yt-Wbctf Xfer(QC): 6 Toilet Transfer (QC): 6 Car Transfer (QC): 6 at home pt. states he uses a trapeze above his bed. pt. demonstrated indep in sup to sit in gym on flat bed using FWW used as rail Weight Bearing Right Lower Extremity: Right Weight Bearing/Tolerated Left Lower Extremity: Left Full Weight Bearing Gait Training Does the Patient Walk?: Yes Walk 10 feet (QC): 6 Walk 50 ft with 2 Turns(QC): 6 Walk 150 ft (QC): 6 Walking 10ft/uneven surface-QC: 6 Gait Persons Needed: 0 Gait Assistive Device: FWW Exercises Supine Ex: Bridging (to pull pants up in bed), Ankle pumps, Quad Set, Rolling, Glut sets, Heel Slides, Scooting, Hip abd/add Supine Reps: 12 Treatments pt. at table and chairs outside his room seated with son in law for game of [employer] Assessment Current Status: Good Progress PT Short Term Goals Short Term Goals Time Frame: Sep 01, 2019 Roll Left & Right: 4 Sit to lyin Lying to sitting on side of be: 4 Sit to stand: 3 Walk 10 feet: 3 PT Forestry Scientist Goals Forestry Scientist Goals PT Detention Goals Time Frame: Sep 15, 2019 Roll Left & Right (QC): 6 Sit to Lying (QC): 6 Lying-Sitting on Side/Bed(QC): 6 Sit to Stand (QC): 6 Chair/Pfi-dd-Urqig Xfer(QC): 6 Toilet Transfer (QC): 6 Car Transfer (QC): 4 Does the Patient Walk: No and Walking Goal IS indicated Walk 10 feet (QC): 5 Walk 50ft with 2 Turns (QC): 9 Walk 150 ft (QC): 9 Walking 10ft on Uneven Surface: 9 1 Step (curb) (QC): 9 4 Steps (QC): 9 12 Steps (QC): 9 Picking up an Object (QC): 9 Does the Pt use WC or Scooter?: Yes Wheel 50 feet with 2 turns (QC: 6 Type: Motorized Wheel 150 feet: 6 Type: Motorized PT Plan Treatment/Plan Treatment Plan: Continue Plan of Care Treatment Plan: Bed Mobility, Education, Functional Activity Yifan, Functional Strength, Group Therapy, Gait, Safety, Therapeutic Exercise, Transfers Treatment Duration: Sep 15, 2019 Frequency: At least 5 of 7 days/Wk (IRF) Estimated Hrs Per Day: 1.5 hours per day Patient and/or Family Agrees t: Yes Safety Risks/Education Patient Education: Gait Training, Transfer Techniques, Correct Positioning, Disease Process, Safety Issues Teaching Recipient: Patient Teaching Methods: Demonstration, Discussion Response to Teaching: Verbalize Understanding, Return Demonstration, Rein forcement Needed Time/GCodes Time In: 1300 Time Out: 1345 Total Billed Treatment Time: 45 Total Billed Treatment 1,GT15m,FA30m CARLOS PERALTA ENGLISH HORN PLAYER Aug 30, 2019 13:34
[2019-08-30 15:43] VITALS: BP 113/78
[2019-08-30] MEDS ORDERED: OXC5T PO (16:11)
[2019-08-30] MEDS ORDERED: DILT120C94 PO (16:11)
[2019-08-30] MEDS ORDERED: METO100T12 PO (16:11)
[2019-08-30] MEDS ORDERED: FERR325T18 PO (16:11)
[2019-08-30] MEDS ORDERED: BACL10TA PO (16:11)
--- NOTE | 2019-08-30 16:12 | D/C HH Face to Face Order ---
D/C Face to Face Orders Reconcile Patient Problems Problems Reviewed?: Yes Instructions for Patient [facility] Patient Instructions/FollowUp: Dr Olivier 08/31/19 PCP 1 week Physician to follow Patient: PCP Discharge Diet for Home: ADA Diet Patient Problems: Hip replacement Back pain chronic AF DM Orthostasis Goals for Patient: [place] Patient Data-Allergies,Ht & Wt Patient Allergies: Coded Allergies: Iodine and Iodide Containing Produc (Verified Allergy, Unknown, 08/18/19) Penicillins (Verified Allergy, Unknown, 08/18/19) nifedipine (Verified Allergy, Unknown, 08/18/19) Home Health Need/Face to Face Date of Face to Face: Aug 30, 2019 Clinical Findings: Generalized weakness and fatigue, Instability, Muscle weakness, Pain with ambulation, Shortness of breath, Unsteady gait I have seen Pt gbmz-gp-xqim: Yes Discharged To: Home Diagnosis/Conditions: Hip replacement Back pain chronic AF DM Orthostasis Patient is Homebound due to: Jaime fall risk due to instabilty, Muscle w eakness, Pain w/ambulation, Shortness of breath/distress Homebound Status Due to the above stated illness, injury or surgical procedure (medical condition or diagnosis) and associated clinical findings, the patient is home bound because of his/her inability to leave home except with aid of a supportive device and/or person AND leaving the home requires a considerable and taxing effort or is medically contraindicated. Pt req the following assistanc: Walker Home Health Nursing Orders Home Health Services Order: Nursing Services, Management And Budget Analyst-Evaluate & Treat, Physical Therapy-Evaluate & Treat Home Health Infusion Therapy Line Start Date: Aug 20, 2019 Certify Stmt I certify that this patient is under my care and that I, a nurse practitioner or a physician; a administrative services assistant working with me, had a face to face encounter that - meets the physician face to face encounter requirements with this patient as dated. TOLU PENA DO Aug 30, 2019 16:12
--- NOTE | 2019-08-30 16:52 | NUR ---
DISCHARGE, TOMORROW Patient has followup with Dr. Davey Olivier at [address], [place], 08/31/19 at 1015. After discussion with Yandy at Dr. Olivier's, patient and his ASTER/Clif, patient will discharge tomorrow a.m. to be transported by family to this appoint. He will then return home as planned. [facility]: Notified [facility] of discharge originally planned for 09/02/19. Faxed continuum of care information for agency, she indicated they would open patient services tomorrow evening or Friday, . IN-HOME SERVICES: Manju will update [employer] to resume patients assistive hours. PCP: [facility]: [phone] Attempted multiple times to access a person to make patient's followup appointment; however, recording looped and insurance underwriter sales was never able to speak with anyone. Left message for return call regarding scheduling. Discharge orders recommend followup with PCP one week, patient may need to make his own appointment in person when accessing the pharmacy at this facility. Updated PT Clinical Services Manager, Unit RN made aware. Patient will need to be ready to exit unit for transport about 0900 tomorrow a.m. IMM2: Patient very excited to return home. Presented, signed, charted.
[2019-08-30] MEDS: GABAPENTIN 400 MG (NEURONTIN) CAP PO SCH (19:56)
[2019-08-30] MEDS: MELATONIN 3 MG TABLET PO PRN (19:57)
--- NOTE | 2019-08-30 19:57 | Cardiology Progress Note ---
Cardiology SOAP Progress Note Subjective: No cardiac complaints. Objective: I&O/Vital Signs 08/30/19 08/30/19 08/30/19 08:41 09:19 15:43 Temp 37.2 Pulse 68 78 Resp 20 16 B/P (MAP) 133/64 (87) 113/78 (90) Pulse Ox 98 97 O2 Delivery Room Air Room Air Room Air 08/30/19 00:00 Intake Total 2670 ml Output Total 2875 ml Balance -205 ml Constitutional: No apparent distress; other (drowsy, awakens easily, drifts back to sleep) Respiratory: No accessory muscle use, No respiratory distress; chest expansion is symmetric, chest is bilaterally symmetric, lungs clear to auscultation Cardiovascular: regular rate-rhythm; No JVD; S1 and S2 Gastrointestional: No tender; soft, audible bowel sounds Extremities: normal inspection, other (mod RLE swelling) Neurologic/Psychiatric: no motor/sensory deficits, alert, normal mood/affect, oriented x 3, other (moves extremities) Skin: normal color; No rash on exposed areas, No ulcerations on exposed areas Results/Procedures: Labs Laboratory Tests 08/29/19 20:25: Glucometer 123H 08/30/19 05:26: Glucometer 114H 08/30/19 05:27: White Blood Count 6.9, Red Blood Count 3.36L, Hemoglobin 10.6L, Hematocrit 32L, Mean Corpuscular Volume 96, Mean Corpuscular Hemoglobin 32, Mean Corpuscular Hemoglobin Concent 33, Red Cell Distribution Width 13.5, Platelet Count 288, Mean Platelet Volume 8.1, Neutrophils (%) (Auto) 71, Lymphocytes (%) (Auto) 13, Monocytes (%) (Auto) 11, Eosinophils (%) (Auto) 3, Basophils (%) (Auto) 1, Neutrophils # (Auto) 4.9, Lymphocytes # (Auto) 0.9L, Monocytes # (Auto) 0.8, Eosinophils # (Auto) 0.2, Basophils # (Auto) 0.1, Sodium Level 137, Potassium Level 3.7, Chloride Level 103, Carbon Dioxide Level 22, Anion Gap 12, Blood Urea Nitrogen 8, Creatinine 0.70, Estimat Glomerular Filtration Rate > 60, BUN/Creatinine Ratio 11, Glucose Level 110H, Calcium Level 8.9, Corrected Calcium 9.5, Total Bilirubin 1.1H, Aspartate Amino Transf (AST/SGOT) 16, Alanine Aminotransferase (ALT/SGPT) 17, Alkaline Phosphatase 138H, Total Protein 6.0L, Albumin 3.2 08/30/19 10:53: Glucometer 148H 08/30/19 15:41: Glucometer 130H A/P: Assessment/Dx: Postural hypotension, likely related to meds and volume depletion Hypokalemia due to diuretic therapy (on two diuretics: chlorthalidone and furosemide). Chlorthalidone d/c'd on 08/20/19 S/P R THR at [facility] in [place], [place] by Dr. Olivier Report [place] about [address] Dickens undertook a w/u and Mr Fitzgerald report he was told his CAD was inoperable H/O PPM implant in January [address] Medina at [facility] for symptomatic bradycardia Echo on 08/20/19: LVEF 45-50%, mild to mod AI, mod MAC, RVSP 25 mmHg Permanent A Fib TSH normal (1.31) on 08/21/19 OAC with Eliquis Chronic anemia DM HTN HLD Obesity Plan: Plan: * Multiple med d/c'd (see orders and previous notes) * Continue diltiazem in a lower dose * Continue dig * Continue apixaban * D/c iv fluids * Monitor labs from time to time Thank you for your consultation. Please call me if you have any questions. Claudia Simon MD, FACP, FACC, FSCAI, FHRS, CCDS Interventional Cardiology Cardiac Electrophysiology Vascular Medicine and Endovascular Interventions Maco SIMON MD Aug 30, 2019 19:57
[2019-08-31 06:00] VITALS: BP 113/69
[2019-08-31] MEDS: inSUlin ASPART (NovoLOG) 1 UNIT/0.01 ML (CHARGE PER UNIT) SC SCH (06:19)
[2019-08-31] MEDS: FERROUS SULF 325 MG (IRON) TAB PO SCH (06:20)
[2019-08-31] MEDS: metFORMIN 500 MG (GLUCOPHAGE) TAB PO SCH (06:20)
[2019-08-31] MEDS: APIXABAN 5 MG (ELIQUIS) TABLET PO SCH (08:09)
[2019-08-31] MEDS: FINASTERIDE (PROSCAR) 5 MG TAB PO SCH (08:10)
[2019-08-31] MEDS: GABAPENTIN 300 MG (NEURONTIN) CAP PO SCH (08:10)
[2019-08-31] MEDS: POLYETHYLENE GLYCOL 17 GM (MIRALAX) PACK PO SCH (08:11)
[2019-08-31] MEDS: SENNA W/DOCUSATE (SENOKOT S) TABLET PO SCH (08:11)
[2019-08-31] MEDS: DOCUSATE SODIUM 100 MG (COLACE) CAP PO SCH (08:11)
[2019-08-31] MEDS: CYANOCOBALAMIN 1,000 MCG (VITAMIN B-12) TABLET PO SCH (08:12)
--- NOTE | 2019-08-31 08:12 | NUR ---
VITAMIN B 12 STILL NOT SCANNING. PUT IN MANUALLY. WILL NOTIFY PHARMACY. COMES UP UNKNOWN NDC NUMBER WHEN SCANNED
[2019-08-31] MEDS: DIGOXIN 0.25 MG (LANOXIN) TAB PO SCH (08:13)
--- NOTE | 2019-08-31 08:16 | NUR ---
Levemir 30 units Insulin drawn up & given. Noted drawn up Insulin sitting on computer table in pt room. Notified previous digital traffic coordinator RN, who has left the building, states that they were going to wait until pt had breakfast to give Insulin, & forgot. This Insulin was wasted & this RN deborah up new syringe of Insulin & given.
[2019-08-31] MEDS: DILTIAZEM 120 MG (CARDIZEM CD) CAP PO SCH (08:31)
[2019-08-31] MEDS: EMPAGLIFLOZIN 25 MG TAB PO SCH (08:33)
[2019-08-31 09:00] VITALS: BP 113/69
--- NOTE | 2019-08-31 09:00 | NUR ---
Pt is up & around in room w his w/c, going to toilet, had bm. Pt is eager to return home. Son in law here to transport pt. Pt appears more independent today than yesterday, or days previously. Son in law taking pt to his appt in [place] to see Dr. Olivier, then to home.
--- NOTE | 2019-08-31 09:07 | Therapy Team Discharge Summary ---
Therapy Discharge Summary Discharge Recommendations Date of Discharge 08/31/19 Therapy D/C Recommendations: Physical Therapy Home Care Physical Therapy This patient was admitted to ARU post elective THR. Prior to surgery, he was living alone at a mod indep level using a power chair for primary mobility. Upon admission to aRU, he required mod to max assist with functional transfers and bed mobility and was unable to effectively walk. Treatment has consisted of functional strength training, balance training and progression of functional mobility training for bed mobility, transfers and gait. At discharge he is mod indep with bed mobility, transfers and gait. He has achieved all goals to a satisfactory level and appears ready for discharge this date. Will DC today with recommended [facility] PT to follow. Occupational Therapy Decreased Activ Tolerance, Impaired Self-Care Skills PT Retirement Goals Retirement Goals PT Retirement Goals Time Frame: Sep 15, 2019 Roll Left to Right (QC): 6 (met) Sit to Lying (QC): 6 (met) Lying-Sitting on Side/Bed(QC): 6 (met) Sit to Stand (QC): 6 (met) Chair/Gxo-uk-Ofehf Xfer(QC): 6 (met) Car Transfer (QC): 4 (ed) Does the Patient Walk: No and Walking Goal IS indicated Walk 10 feet (QC): 5 (exceeded) Walk 10ft-Uneven Surface(QC): 9 (exceeded) Walk 50ft with 2 Turns (QC): 9 (exceeded) Walk 150 ft (QC): 9 (xceded) Does the Pt use WC or Scooter?: Yes Wheel 50 feet with 2 turns (QC: 6 1 Step (curb) (QC): 9 4 Steps (QC): 9 12 Steps (QC): 9 Picking up an Object (QC): 9 all goals met to a satisfactory level OT Retirement Goals Vp Public Relations Goals Time Frame: Sep 03, 2019 Eating (QC): 6 Oral Hygiene (QC): 6 Shower/Bathe Self (QC): 6 Upper Body Dressing (QC): 6 Lower Body Dressing (QC): 6 On/Off Footwear (QC): 6 Toileting Hygiene (QC): 6 Toilet/Commode Transfer (QC): 6 Additional Goals: 1-Demonstrate ADL Tasks, 2-Verbalize Understanding, 3- ImproveStrength/Yifan 1=Demonstrate adherence to instructed precautions during ADL tasks. 2=Patient will verbalize/demonstrate understanding of assistive devices/ modifications for ADL. 3=Patient will improve strength/tolerance for activity to enable patient to perform ADL's. ELEAZAR NAGEL PT Aug 31, 2019 09:07
--- NOTE | 2019-08-31 10:07 | NUR ---
DISCHARGE Discharged as planned, Clif here to transport timely. Business Office Representative attempted again to contact [facility] for PCP followup, loop recording and inaccessible. Updated patient/Clif. They understand patient will need to go in person or make his own contact re appointment. Re Rx, patient believes the [facility] is closed for the holiday, patient/Clif understand the importance of getting his Rx filled and agreed to pursue these through patient's established community pharmacy, [facility]. Unit RN involved in finalizing discharge. Interventions completed.
--- NOTE | 2019-08-31 11:26 | Discharge Summary ---
Diagnosis/Chief Complaint Date of Admission Aug 18, 2019 at 12:45 Date of Discharge Discharge Date: Aug 31, 2019 Discharge Diagnosis Assessment: Status post uncomplicated right hip replacement Atrial fibrillation CAD Alcoholism Hypertension Diabetes mellitus Hypoglycemic episode Debility chronic Anemia Hypokalemia Hypotension now resolved after IVF so will heplock s/p non-injury fall Plan: Inpatient rehab protocol Monitor potassium Supplement potassium Appreciate cardiology Monitor blood sugar and blood pressure Fall risk Orthostasis poses fall risk but seems improved today with decreased Cardizem doses DC today (1) Debility (2) CAD (coronary artery disease) (3) Diabetes mellitus (4) Pacemaker (5) Atrial fibrillation (6) IBS (irritable bowel syndrome) (7) KRAIG (obstructive sleep apnea) (8) Hypertension (9) Hyperlipemia (10) Depression (11) BPH (benign prostatic hyperplasia) (12) Status post right hip replacement Discharge Summary Discharge Physical Examination Allergies: Coded Allergies: Iodine and Iodide Containing Produc (Verified Allergy, Unknown, 08/18/19) Penicillins (Verified Allergy, Unknown, 08/18/19) nifedipine (Verified Allergy, Unknown, 08/18/19) Vitals & I&Os Vital Signs Date Time Temp Pulse Resp B/P (MAP) Pulse Ox O2 Delivery O2 Flow Rate FiO2 08/31/19 08:23 Room Air 08/31/19 06:00 36.2 79 16 113/69 (84) 97 08/31/19 05:54 2.00 General Appearance: Alert, Oriented X3, Cooperative Respiratory: Clear to Auscultation Cardiovascular: Regular Rate Neuro: Normal Gait, Normal Speech, Strength at 5/5 X4 Ext Psych/Mental Status: Mental Status NL Hospital Course Was the Problem List Reviewed?: Yes Hospital course: patient had a lengthy 14 day course in IRF after severe debility from right hip replacement with acute on chronic pain. Patient participated in therapies and Cardiology was consulted for orthostasis and multiple meds were changed which ultimately resolved this issue. Patient was able to regain enough function and near PLOF to go home and HH was ordered and patient was deemed stable for DC. Labs (last 24 hrs) Laboratory Tests 08/18/19 15:29: Glucometer 106 08/18/19 20:37: Glucometer 146H 08/19/19 05:44: Glucometer 65L 08/19/19 06:40: White Blood Count 8.4, Red Blood Count 3.13L, Hemoglobin 10.2L, Hematocrit 30L, Mean Corpuscular Volume 94, Mean Corpuscular Hemoglobin 33, Mean Corpuscular Hemoglobin Concent 35, Red Cell Distribution Width 12.9, Platelet Count 227, Mean Platelet Volume 8.9, Neutrophils (%) (Auto) 72, Lymphocytes (%) (Auto) 14, Monocytes (%) (Auto) 13H, Eosinophils (%) (Auto) 1, Basophils (%) (Auto) 0, Neutrophils # (Auto) 6.1, Lymphocytes # (Auto) 1.2, Monocytes # (Auto) 1.1H, Eosinophils # (Auto) 0.0, Basophils # (Auto) 0.0, Sodium Level 135, Potassium Level 3.1L, Chloride Level 100, Carbon Dioxide Level 23, Anion Gap 12, Blood Urea Nitrogen 15, Creatinine 0.74, Estimat Glomerular Filtration Rate > 60, BUN/Creatinine Ratio 20, Glucose Level 76, Calcium Level 8.0L, Corrected Calcium 8.6, Total Bilirubin 0.5, Aspartate Amino Transf (AST/SGOT) 38H, Alanine Aminotransferase (ALT/SGPT) 41, Alkaline Phosphatase 101, Total Protein 5.6L, Albumin 3.2, Digoxin Level 0.60L 08/19/19 09:03: Glucometer 46*L 08/19/19 09:28: Glucometer 77 08/19/19 10:50: Glucometer 126H 08/19/19 15:48: Glucometer 126H 08/19/19 20:44: Glucometer 165H 08/20/19 05:37: Glucometer 90 08/20/19 10:55: Glucometer 163H 08/20/19 15:26: Glucometer 126H 08/20/19 20:33: Glucometer 98 08/20/19 23:00: Glucometer 101 08/21/19 05:47: Glucometer 143H 08/21/19 06:08: Sodium Level 136, Potassium Level 3.6, Chloride Level 102, Carbon Dioxide Level 23, Anion Gap 11, Blood Urea Nitrogen 15, Creatinine 0.74, Estimat Glomerular Filtration Rate > 60, BUN/Creatinine Ratio 20, Glucose Level 112H, Calcium Level 8.5, Magnesium Level 1.6, Thyroid Stimulating Hormone (TSH) 1.31 08/21/19 12:06: Glucometer 95 08/21/19 15:45: Glucometer 106 08/21/19 20:50: Glucometer 112H 08/22/19 05:45: Glucometer 141H 08/22/19 06:03: Sodium Level 135, Potassium Level 3.7, Chloride Level 99, Carbon Dioxide Level 24, Anion Gap 12, Blood Urea Nitrogen 13, Creatinine 0.75, Estimat Glomerular Filtration Rate > 60, BUN/Creatinine Ratio 17, Glucose Level 121H, Calcium Level 8.7, Magnesium Level 1.5L 08/22/19 10:48: Glucometer 124H 08/22/19 16:04: Glucometer 117H 08/22/19 21:00: Glucometer 142H 08/23/19 05:29: Glucometer 122H 08/23/19 05:40: Sodium Level 133L, Potassium Level 3.8, Chloride Level 96L, Carbon Dioxide Level 28, Anion Gap 9, Blood Urea Nitrogen 12, Creatinine 0.79, Estimat Glomerular Filtration Rate > 60, BUN/Creatinine Ratio 15, Glucose Level 100, Calcium Level 8.8, Corrected Calcium 9.6, Total Bilirubin 2.1H, Aspartate Amino Transf (AST/SGOT) 87H, Alanine Aminotransferase (ALT/SGPT) 67H, Alkaline Phosphatase 254H, Total Protein 5.5L, Albumin 3.0L 08/23/19 06:40: White Blood Count 6.3, Red Blood Count 3.26L, Hemoglobin 10.7L, Hematocrit 31L, Mean Corpuscular Volume 96, Mean Corpuscular Hemoglobin 33, Mean Corpuscular Hemoglobin Concent 34, Red Cell Distribution Width 12.9, Platelet Count 286, Mean Platelet Volume 8.4, Neutrophils (%) (Auto) 61, Lymphocytes (%) (Auto) 23, Monocytes (%) (Auto) 13H, Eosinophils (%) (Auto) 4, Basophils (%) (Auto) 1, Neutrophils # (Auto) 3.8, Lymphocytes # (Auto) 1.4, Monocytes # (Auto) 0.8, Eosinophils # (Auto) 0.2, Basophils # (Auto) 0.0 08/23/19 10:58: Glucometer 134H 08/23/19 17:01: Glucometer 140H 08/23/19 20:44: Glucometer 158H 08/24/19 05:58: Glucometer 164H 08/24/19 06:28: Sodium Level 134L, Potassium Level 3.7, Chloride Level 96L, Carbon Dioxide Level 26, Anion Gap 12, Blood Urea Nitrogen 12, Creatinine 0.91, Estimat Glomerular Filtration Rate > 60, BUN/Creatinine Ratio 13, Glucose Level 139H, Calcium Level 9.2, Corrected Calcium 9.8, Magnesium Level 1.7, Total Bilirubin 1.8H, Aspartate Amino Transf (AST/SGOT) 46H, Alanine Aminotransferase (ALT/SGPT) 55, Alkaline Phosphatase 245H, Total Protein 6.2L, Albumin 3.2, Digoxin Level 1.07 08/24/19 10:52: Glucometer 146H 08/24/19 17:01: Glucometer 172H 08/24/19 21:00: Glucometer 160H 08/25/19 05:24: Glucometer 127H 08/25/19 10:57: Glucometer 132H 08/25/19 17:04: Glucometer 129H 08/25/19 20:39: Glucometer 131H 08/26/19 05:12: White Blood Count 7.7, Red Blood Count 3.10L, Hemoglobin 10.0L, Hematocrit 30L, Mean Corpuscular Volume 96, Mean Corpuscular Hemoglobin 32, Mean Corpuscular Hemoglobin Concent 34, Red Cell Distribution Width 13.2, Platelet Count 297, Mean Platelet Volume 8.4, Sodium Level 135, Potassium Level 4.1, Chloride Level 98, Carbon Dioxide Level 25, Anion Gap 12, Blood Urea Nitrogen 13, Creatinine 0.86, Estimat Glomerular Filtration Rate > 60, BUN/Creatinine Ratio 15, Glucose Level 90, Calcium Level 8.2L, Digoxin Level 0.96 08/26/19 06:23: Glucometer 104 08/26/19 09:12: Glucometer 127H 08/26/19 11:39: Glucometer 93 08/26/19 15:41: Glucometer 136H 08/26/19 20:42: Glucometer 126H 08/27/19 05:39: Glucometer 97 08/27/19 11:04: Glucometer 127H 08/27/19 15:44: Glucometer 178H 08/27/19 20:47: Glucometer 125H 08/28/19 05:15: Glucometer 130H 08/28/19 11:08: Glucometer 110 08/28/19 15:26: Glucometer 163H 08/28/19 20:41: Glucometer 143H 08/29/19 05:24: Glucometer 135H 08/29/19 10:43: Glucometer 117H 08/29/19 16:29: Glucometer 118H 08/29/19 20:25: Glucometer 123H 08/30/19 05:26: Glucometer 114H 08/30/19 05:27: White Blood Count 6.9, Red Blood Count 3.36L, Hemoglobin 10.6L, Hematocrit 32L, Mean Corpuscular Volume 96, Mean Corpuscular Hemoglobin 32, Mean Corpuscular Hemoglobin Concent 33, Red Cell Distribution Width 13.5, Platelet Count 288, Mean Platelet Volume 8.1, Neutrophils (%) (Auto) 71, Lymphocytes (%) (Auto) 13, Monocytes (%) (Auto) 11, Eosinophils (%) (Auto) 3, Basophils (%) (Auto) 1, Neutrophils # (Auto) 4.9, Lymphocytes # (Auto) 0.9L, Monocytes # (Auto) 0.8, Eosinophils # (Auto) 0.2, Basophils # (Auto) 0.1, Sodium Level 137, Potassium Level 3.7, Chloride Level 103, Carbon Dioxide Level 22, Anion Gap 12, Blood Urea Nitrogen 8, Creatinine 0.70, Estimat Glomerular Filtration Rate > 60, BUN/Creatinine Ratio 11, Glucose Level 110H, Calcium Level 8.9, Corrected Calcium 9.5, Total Bilirubin 1.1H, Aspartate Amino Transf (AST/SGOT) 16, Alanine Aminotransferase (ALT/SGPT) 17, Alkaline Phosphatase 138H, Total Protein 6.0L, Albumin 3.2 08/30/19 10:53: Glucometer 148H 08/30/19 15:41: Glucometer 130H 08/30/19 21:27: Glucometer 111H 08/31/19 04:38: Glucometer 103 Pending Labs Laboratory Tests 08/18/19 15:29: Glucometer 106 08/18/19 20:37: Glucometer 146 08/19/19 05:44: Glucometer 65 08/19/19 06:40: White Blood Count 8.4, Red Blood Count 3.13, Hemoglobin 10.2, Hematocrit 30, Mean Corpuscular Volume 94, Mean Corpuscular Hemoglobin 33, Mean Corpuscular Hemoglobin Concent 35, Red Cell Distribution Width 12.9, Platelet Count 227, Mean Platelet Volume 8.9, Neutrophils (%) (Auto) 72, Lymphocytes (%) (Auto) 14, Monocytes (%) (Auto) 13, Eosinophils (%) (Auto) 1, Basophils (%) (Auto) 0, Neutrophils # (Auto) 6.1, Lymphocytes # (Auto) 1.2, Monocytes # (Auto) 1.1, Eosinophils # (Auto) 0.0, Basophils # (Auto) 0.0, Sodium Level 135, Potassium Level 3.1, Chloride Level 100, Carbon Dioxide Level 23, Anion Gap 12, Blood Urea Nitrogen 15, Creatinine 0.74, Estimat Glomerular Filtration Rate > 60, BUN/Creatinine Ratio 20, Glucose Level 76, Calcium Level 8.0, Corrected Calcium 8.6, Total Bilirubin 0.5, Aspartate Amino Transf (AST/SGOT) 38, Alanine Aminotransferase (ALT/SGPT) 41, Alkaline Phosphatase 101, Total Protein 5.6, Albumin 3.2, Digoxin Level 0.60 08/19/19 09:03: Glucometer 46 08/19/19 09:28: Glucometer 77 08/19/19 10:50: Glucometer 126 08/19/19 15:48: Glucometer 126 08/19/19 20:44: Glucometer 165 08/20/19 05:37: Glucometer 90 08/20/19 10:55: Glucometer 163 08/20/19 15:26: Glucometer 126 08/20/19 20:33: Glucometer 98 08/20/19 23:00: Glucometer 101 08/21/19 05:47: Glucometer 143 08/21/19 06:08: Sodium Level 136, Potassium Level 3.6, Chloride Level 102, Carbon Dioxide Level 23, Anion Gap 11, Blood Urea Nitrogen 15, Creatinine 0.74, Estimat Glomerular Filtration Rate > 60, BUN/Creatinine Ratio 20, Glucose Level 112, Calcium Level 8.5, Magnesium Level 1.6, Thyroid Stimulating Hormone (TSH) 1.31 08/21/19 12:06: Glucometer 95 08/21/19 15:45: Glucometer 106 08/21/19 20:50: Glucometer 112 08/22/19 05:45: Glucometer 141 08/22/19 06:03: Sodium Level 135, Potassium Level 3.7, Chloride Level 99, Carbon Dioxide Level 24, Anion Gap 12, Blood Urea Nitrogen 13, Creatinine 0.75, Estimat Glomerular Filtration Rate > 60, BUN/Creatinine Ratio 17, Glucose Level 121, Calcium Level 8.7, Magnesium Level 1.5 08/22/19 10:48: Glucometer 124 08/22/19 16:04: Glucometer 117 08/22/19 21:00: Glucometer 142 08/23/19 05:29: Glucometer 122 08/23/19 05:40: Sodium Level 133, Potassium Level 3.8, Chloride Level 96, Carbon Dioxide Level 28, Anion Gap 9, Blood Urea Nitrogen 12, Creatinine 0.79, Estimat Glomerular Filtration Rate > 60, BUN/Creatinine Ratio 15, Glucose Level 100, Calcium Level 8.8, Corrected Calcium 9.6, Total Bilirubin 2.1, Aspartate Amino Transf (AST/SGOT) 87, Alanine Aminotransferase (ALT/SGPT) 67, Alkaline Phosphatase 254, Total Protein 5.5, Albumin 3.0 08/23/19 06:40: White Blood Count 6.3, Red Blood Count 3.26, Hemoglobin 10.7, Hematocrit 31, Mean Corpuscular Volume 96, Mean Corpuscular Hemoglobin 33, Mean Corpuscular Hemoglobin Concent 34, Red Cell Distribution Width 12.9, Platelet Count 286, Mean Platelet Volume 8.4, Neutrophils (%) (Auto) 61, Lymphocytes (%) (Auto) 23, Monocytes (%) (Auto) 13, Eosinophils (%) (Auto) 4, Basophils (%) (Auto) 1, Neutrophils # (Auto) 3.8, Lymphocytes # (Auto) 1.4, Monocytes # (Auto) 0.8, Eosinophils # (Auto) 0.2, Basophils # (Auto) 0.0 08/23/19 10:58: Glucometer 134 08/23/19 17:01: Glucometer 140 08/23/19 20:44: Glucometer 158 08/24/19 05:58: Glucometer 164 08/24/19 06:28: Sodium Level 134, Potassium Level 3.7, Chloride Level 96, Carbon Dioxide Level 26, Anion Gap 12, Blood Urea Nitrogen 12, Creatinine 0.91, Estimat Glomerular Filtration Rate > 60, BUN/Creatinine Ratio 13, Glucose Level 139, Calcium Level 9.2, Corrected Calcium 9.8, Magnesium Level 1.7, Total Bilirubin 1.8, Aspartate Amino Transf (AST/SGOT) 46, Alanine Aminotransferase (ALT/SGPT) 55, Alkaline Phosphatase 245, Total Protein 6.2, Albumin 3.2, Digoxin Level 1.07 08/24/19 10:52: Glucometer 146 08/24/19 17:01: Glucometer 172 08/24/19 21:00: Glucometer 160 08/25/19 05:24: Glucometer 127 08/25/19 10:57: Glucometer 132 08/25/19 17:04: Glucometer 129 08/25/19 20:39: Glucometer 131 08/26/19 05:12: White Blood Count 7.7, Red Blood Count 3.10, Hemoglobin 10.0, Hematocrit 30, Mean Corpuscular Volume 96, Mean Corpuscular Hemoglobin 32, Mean Corpuscular Hemoglobin Concent 34, Red Cell Distribution Width 13.2, Platelet Count 297, Mean Platelet Volume 8.4, Sodium Level 135, Potassium Level 4.1, Chloride Level 98, Carbon Dioxide Level 25, Anion Gap 12, Blood Urea Nitrogen 13, Creatinine 0.86, Estimat Glomerular Filtration Rate > 60, BUN/Creatinine Ratio 15, Glucose Level 90, Calcium Level 8.2, Digoxin Level 0.96 08/26/19 06:23: Glucometer 104 08/26/19 09:12: Glucometer 127 08/26/19 11:39: Glucometer 93 08/26/19 15:41: Glucometer 136 08/26/19 20:42: Glucometer 126 08/27/19 05:39: Glucometer 97 08/27/19 11:04: Glucometer 127 08/27/19 15:44: Glucometer 178 08/27/19 20:47: Glucometer 125 08/28/19 05:15: Glucometer 130 08/28/19 11:08: Glucometer 110 08/28/19 15:26: Glucometer 163 08/28/19 20:41: Glucometer 143 08/29/19 05:24: Glucometer 135 08/29/19 10:43: Glucometer 117 08/29/19 16:29: Glucometer 118 08/29/19 20:25: Glucometer 123 08/30/19 05:26: Glucometer 114 08/30/19 05:27: White Blood Count 6.9, Red Blood Count 3.36, Hemoglobin 10.6, Hematocrit 32, Mean Corpuscular Volume 96, Mean Corpuscular Hemoglobin 32, Mean Corpuscular Hemoglobin Concent 33, Red Cell Distribution Width 13.5, Platelet Count 288, Mean Platelet Volume 8.1, Neutrophils (%) (Auto) 71, Lymphocytes (%) (Auto) 13, Monocytes (%) (Auto) 11, Eosinophils (%) (Auto) 3, Basophils (%) (Auto) 1, Neutrophils # (Auto) 4.9, Lymphocytes # (Auto) 0.9, Monocytes # (Auto) 0.8, Eosinophils # (Auto) 0.2, Basophils # (Auto) 0.1, Sodium Level 137, Potassium Level 3.7, Chloride Level 103, Carbon Dioxide Level 22, Anion Gap 12, Blood Urea Nitrogen 8, Creatinine 0.70, Estimat Glomerular Filtration Rate > 60, BUN/Creatinine Ratio 11, Glucose Level 110, Calcium Level 8.9, Corrected Calcium 9.5, Total Bilirubin 1.1, Aspartate Amino Transf (AST/SGOT) 16, Alanine Aminotransferase (ALT/SGPT) 17, Alkaline Phosphatase 138, Total Protein 6.0, Albumin 3.2 08/30/19 10:53: Glucometer 148 08/30/19 15:41: Glucometer 130 08/30/19 21:27: Glucometer 111 08/31/19 04:38: Glucometer 103 Discharge Home Medications: Active Scripts Active Oxycodone IR (Oxycodone HCl) 5 Mg Tab 5 Mg PO Q4H PRN Diltiazem 24Hr Cd (Diltiazem HCl) 120 Mg Cap.er.24h 120 Mg PO DAILY@0900 Ferrous Sulfate 325 Mg Tablet 325 Mg PO BID WITH MEALS Baclofen 10 Mg Tablet 10 Mg PO Q6HR PRN Metoprolol Tartrate 100 Mg Tablet 100 Mg PO BID Reported Hydroxyzine HCl 25 Mg Tablet 25 Mg PO QID PRN Metformin HCl 1,000 Mg Tablet 1,000 Mg PO BID Gabapentin 300 Mg Capsule 300 Mg PO 0800,1200 Eliquis (Apixaban) 5 Mg Tablet 5 Mg PO BID Vitamin B-12 (Cyanocobalamin (Vitamin B-12)) 1,000 Mcg Tablet 1,000 Mcg PO DAILY Colace (Docusate Sodium) 100 Mg Capsule 100 Mg PO DAILY LAST FILLED #60 06-02-19 Lantus (Insulin Glargine,Hum.rec.anlog) 100 Unit/1 Ml Vial 70 Units SC BID LAST FILLED #50 10-29-18 Atorvastatin Calcium 80 Mg Tablet 40 Mg PO HS TAKES 1/2 (80MG) TABLET Klor-Con 10 (Potassium Chloride) 10 Meq Tablet.er 10 Meq PO BID Chlorthalidone 25 Mg Tablet 12.5 Mg PO DAILY TAKES 1/2 (25MG) TABLET Furosemide 40 Mg Tablet 40 Mg PO DAILY Nabumetone 500 Mg Tablet 500 Mg PO BID Spironolactone 25 Mg Tablet 50 Mg PO DAILY TAKES 2 (25MG) TABLETS Digoxin 250 Mcg Tablet 250 Mcg PO DAILY Finasteride 5 Mg Tablet 5 Mg PO DAILY Gabapentin 400 Mg Capsule 400 Mg PO HS Jardiance (Empagliflozin) 25 Mg Tablet 25 Mg PO DAILY Citalopram HBr (Citalopram Hydrobromide) 40 Mg Tablet 40 Mg PO DAILY Novolog Flexpen (Insulin Aspart) 300 Units/3 Ml Solution 18 Units SC AC Instructions to patient/family Please see electronic discharge instructions given to patient. Diagnosis/Problems Diagnosis/Problems (1) Debility (2) CAD (coronary artery disease) (3) Diabetes mellitus (4) Pacemaker (5) Atrial fibrillation (6) IBS (irritable bowel syndrome) (7) KRAIG (obstructive sleep apnea) (8) Hypertension (9) Hyperlipemia (10) Depression (11) BPH (benign prostatic hyperplasia) (12) Status post right hip replacement Clinical Quality Measures DVT/VTE Risk/Contraindication: Risk Factor Score Per Nursin RFS Level Per Nursing on Admit: 4+=Very High TOLU PENA DO Aug 31, 2019 11:26
--- NOTE | 2019-09-02 11:43 | Therapy Team Discharge Summary ---
Therapy Discharge Summary Discharge Recommendations Date of Discharge Aug 31, 2019 at 09:00 Therapy D/C Recommendations: Occupational Therapy Home Care, Physical Therapy Home Care Occupational Therapy Pt admitted to ARU post elective THR. At admission, pt was independent with eating, SBA with upper body dressing, min-mod assist for oral hygiene and showering, and max assist with toileting and toilet transfer. OT tx focused on increasing BUE strenth and functional endurance, increasing independence with ADLs, and improving functional mobility. At discharge, pt was independent with eating and oral hygiene, set up with upper body dressing and footwear, & supervision/CGA with showering/lower body dressing/toileting/toilet transer. Pt met goals of being independent with feeding and oral hygiene but he did not meet goals of independent to mod I with other ADLs, although his level of independence has increased. OT recommends home health OT to continue increasing pt's independence with ADLs. Decreased Activ Tolerance, Impaired Self-Care Skills PT Fpc Goals Hand Trucker Goals PT Hand Trucker Goals Time Frame: Sep 15, 2019 Roll Left to Right (QC): 6 (met) Sit to Lying (QC): 6 (met) Lying-Sitting on Side/Bed(QC): 6 (met) Sit to Stand (QC): 6 (met) Chair/Usv-ne-Gczfj Xfer(QC): 6 (met) Car Transfer (QC): 4 (ed) Does the Patient Walk: No and Walking Goal IS indicated Walk 10 feet (QC): 5 (exceeded) Walk 10ft-Uneven Surface(QC): 9 (exceeded) Walk 50ft with 2 Turns (QC): 9 (exceeded) Walk 150 ft (QC): 9 (xceded) Does the Pt use WC or Scooter?: Yes Wheel 50 feet with 2 turns (QC: 6 1 Step (curb) (QC): 9 4 Steps (QC): 9 12 Steps (QC): 9 Picking up an Object (QC): 9 OT Fpc Goals Hand Trucker Goals Time Frame: Sep 03, 2019 Eating (QC): 6 (met) Oral Hygiene (QC): 6 (met) Shower/Bathe Self (QC): 6 (not met ) Upper Body Dressing (QC): 6 (not met) Lower Body Dressing (QC): 6 (Not met ) On/Off Footwear (QC): 6 (not met) Toileting Hygiene (QC): 6 (not met) Toilet/Commode Transfer (QC): 6 (not met) Additional Goals: 1-Demonstrate ADL Tasks, 2-Verbalize Understanding, 3- ImproveStrength/Yifan 1=Demonstrate adherence to instructed precautions during ADL tasks. 2=Patient will verbalize/demonstrate understanding of assistive devices/modifications for ADL. 3=Patient will improve strength/tolerance for activity to enable patient to perform ADL's. INDIGO PERDOMO OT Sep 02, 2019 11:43
--- NOTE | 2019-09-03 12:22 | Physician Query Clarification ---
PQ-Intro New Diagnosis Admission/Discharge Admission Date: Aug 18, 2019 at 12:45 Discharge Date: Aug 31, 2019 at 09:00 The medical record reflects the following clinical scenario: History/Risk Factors: S/P Rt. hip replacement, Diabetes, atrial fibrillation, CAD, KRAIG, cardiomyopathy Clinical Findings: s/p rt hip replacement, arthritis Treatment: Rt hip replacement Question: What condition best reflects the above clinical scenario? Please document a response in the Progress Noter or Discharge Summary. 1. Osteoarthritis Rt hip 2. S/P rt. hip replacement reason unknown 3. Other, with explanation of the clinical findings. 4. Clinically undetermined, no explanation for the clinical findings. PHYSICIAN RESPONSE What condition reflects above: 1 Please remember a lack of response to the above will prompt a phone page by CDI/Coding staff. In responding to this query, please exercise your independent professional judgment. The purpose of this communication is to more accurately reflect the complexity of your patients condition. The fact that a question is asked does not imply that any particular answer is desired or expected. Thank you for your timely response to this clarification. Requestors name: Andra THIS PHYSICIAN QUERY FORM IS A PERMANENT PART OF THE MEDICAL RECORD ANDRA [place] Sep 03, 2019 12:22 TOLU PENA DO Sep 03, 2019 15:58
== END 2019-08-31 09:00 | disposition home health service (06) | DRG 948 ==
PROVIDERS: ADMIT Internal Medicine; ATTEND Internal Medicine
DX: R53.81 Other malaise (principal); Z47.1 Aftercare following joint replacement surgery; Z96.641 Presence of right artificial hip joint; I48.91 Unspecified atrial fibrillation; J44.9 Chronic obstructive pulmonary disease, unspecified; G47.33 Obstructive sleep apnea (adult) (pediatric); I42.9 Cardiomyopathy, unspecified; I25.10 Atherosclerotic heart disease of native coronary artery without angina pectoris; E78.5 Hyperlipidemia, unspecified; E11.42 Type 2 diabetes mellitus with diabetic polyneuropathy; N40.0 Benign prostatic hyperplasia without lower urinary tract symptoms; K58.1 Irritable bowel syndrome with constipation; E11.649 Type 2 diabetes mellitus with hypoglycemia without coma; F32.9 Major depressive disorder, single episode, unspecified; E87.6 Hypokalemia; M19.91 Primary osteoarthritis, unspecified site; D64.9 Anemia, unspecified; E66.9 Obesity, unspecified; Z68.32 Body mass index [BMI] 32.0-32.9, adult; F10.20 Alcohol dependence, uncomplicated; I95.1 Orthostatic hypotension; E86.9 Volume depletion, unspecified; I35.1 Nonrheumatic aortic (valve) insufficiency; Z79.01 Long term (current) use of anticoagulants; Z79.4 Long term (current) use of insulin; T50.2X5A Adverse effect of carbonic-anhydrase inhibitors, benzothiadiazides and other diuretics, initial encounter
CPT/HCPCS: 36415; 80048; 80053; 80162; 82565; 82962; 83735; 84443; 85025; 85027; 93306